=== PATIENT | female | born 1990 | race Caucasian/White ===

== ENCOUNTER 2024-10-01 19:20 | Inpatient (IN) | payer OTHER, SELFPAY ==
[2024-10-01 18:49] VITALS: BP 122/76; PULSE 99; RESP 20; TEMP 36.9; O2SAT 107; BMI 37.0
--- NOTE | 2024-10-01 19:19 | PCM.HP.STD ---
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 She had a white count of 11.4 and a temp of 103, heart rate initially 120s but improved to 90s after fluids. Was found to have UA consistent with UTI so she was given Zosyn. Lactic acid was within normal limits at [facility] facility ([facility] Of note she had recently been admitted to [facility] 3 weeks ago for a E. coli UTI and was treated with Rocephin and subsequently cefdinir, she has been off of antibiotics for 2 weeks however this she developed the abdominal pain and back pain with intermittent fevers. Family preferred transfer to [place], patient accepted in transfer. Patient evaluated bedside when she arrived to the floor. She endorses she has little bit of a headache and has had this in the fevers off and on for the past couple of days, also reports she has had diarrhea since she was on antibiotics but said that this is improving and not worsening and was only offered information when specifically asked, does cath self through stoma routinely and has not changed anything or had any difficulty with this. Reports some suprapubic pain that she feels like goes to her back but not necessarily flank or side pain, otherwise just feels somewhat weak and fatigued [facility] Medical History UTI (urinary tract infection) Home Medications ?Medication ?Instructions ?Recorded ?Last Taken ?Type NK 10/01/24 Unknown History Allergy/AdvReac Type Severity Reaction Status Date / Time No Known Allergies Allergy Verified 10/01/24 20:11 Social History Smoking Status: Never smoker ROS ROS Narrative General: Has had some fevers and chills HENT: Intermittent headaches, denies stuffy nose, denies sore throat EYES: Denies changes in vision Resp: Denies cough, denies shortness of breath Cardiac: Denies chest pain GI: Poor p.o. intake, some lower abdominal pain symptoms to the back, sometimes diarrhea : Continues to self cath Extremity: Denies swelling MSK: Generalized weakness Neuro: Denies any numbness/tingling Heme: Denies any bleeding or bruising Skin: Denies rashes Psychiatric: No complaints voiced Vital Signs Vital Signs Vital Signs: 10/01/24 18:49 Temperature 98.5 F Temperature Source Oral Pulse Rate 99 Respiratory Rate 20 H Blood Pressure 122/76 H Blood Pressure Mean 91 Pulse Ox 107 Oxygen Delivery Method Room Air Physical Exam Narrative General: Alert, oriented, appears uncomfortable HEENT: Atraumatic, normocephalic Eyes: Anicteric, normal conjunctiva, extraocular movements grossly intact Neck: Supple Respiratory: Clear to auscultation bilaterally, normal respiratory effort Cardiovascular: Regular rate and rhythm GI: Soft, tender in lower to mid abdomen without any rebound, guarding, rigidity Extremities: No edema Musculoskeletal: Moving all extremities Neuro: No overt focal neurological deficits Skin: No rashes appreciated Psych: Cooperative Assessment & Plan Assessment/Plan (1) Complicated UTI (urinary tract infection): PLAN: Plan # Recurrent complicated UTI - Patient self caths through stoma, had not had problems until recently - [facility] - Will continue Zosyn given patient recent hospitalized with IV antibiotics and unclear sensitivities - IV fluids - Supportive care - Patient is to establish with urology on an outpatient basis in the next couple of weeks - Can consider an inpatient urology consult this week if necessary however if patient improves significantly with antibiotics may just be able to follow on outpatient basis - Given this is patient's second UTI in 3 weeks is reasonable to get imaging, [facility], we have no baseline it is unclear if this is an ALIDA or just slightly elevated at baseline especially given patient's reports of poor p.o. intake, will hydrate patient with IVF overnight and plan on CT scan in the a.m. #DVT ppx: SCDs Maggie Crook MD Time spent in the patient's overall evaluation, decision-making process, review of diagnostic data, adjustment of management, discussion with other providers, nursing and ancillary staff involved in patient's care documentation,57 Minutes Charges/Coding Visit Charges Inpatient E&M: 88423 Init Hosp L2
--- OUTSIDE RECORDS SUMMARY | 2024-10-01 19:32 | XMS RPT_ITS | CCD ---
Author Organization [facility] Care Team Providers Care [place] [employer] Drier Name Role Phone Annalee Romero PA-C Unavailable Annalee Romero PA-C Unavailable [phone] Yina Drake PA-C Unavailable [phone] Amber KHANNA, Dr. Gaming Unavailable Gillian Ho LPN Unavailable Unavailable ANNALEE ROMERO Consulting Unavailable JOSE ANTONIO LOPEZ MD Attending Unavailable JOSE ANTONIO LOPEZ MD Primary Care Unavailable JOSE ANTONIO LOPEZ MD Admitting Unavailable ANNALEE ROMERO Referring Unavailable PROVIDER, UNKNOWN Consulting Unavailable Problems Active Problems Problem Classification Problem Date Documented Da te Episodic/Chronic Headache; including migraine (16 sources) Chronic headache disorder; Translations: [Headache] 02-17-2019 Episodic Residual codes; unclassified (16 sources) Varicella immune; Translations: [Other specified health status] 02-17-2019 Episodic Unclassified (8 sources) Headache - The onset of the headache has been gradual and has been occurring in a persistent pattern for 7 weeks. The course has been constant. The headache is characterized as pounding (but then sometimes it can be a slight headache). The headache is experienced any time of the day (no diurnal variation) (starts shortly after waking up and lasts all day long). The headache is described as being located in the frontal area. The symptoms are aggravated by pressure over temporal arteries (when she is tired it is worse). The symptoms have been associated with neck stiffness (shoulders are always tight- alot of tension.) and sore throat (a little bit), while the symptoms have not been associated with blurring of vision, eye pain (last eye appointment was just this fall - very slight change and it did not help - had headache prior to getting the new glasses (was seen at [facility] for exam and then went online to purchase the glasses).), jaw claudication, nausea, unconsciousness, vertigo or vomiting. Note for Headache: Hasn't taken any medications for the headaches.Goes to chiropractor once a month. Sometimes has massages but none recently.No other symptoms with the headaches.No family history of headaches. Has good water intake.Works as a preschool assistant director.No cold symptoms prior to headaches starting. 02-17-2019 Urinary tract infections (2 sources) Urinary tract infectious disease; Translations: [Urinary tract infection, site not specified] 09-14-2024 Episodic Past or Other Problems Problem Classification Problem Date Documented Date Episodic/Chronic Unclassified (1 source) Follow up consultation - The patient is here to follow-up after hospitalization ([facility]) on : (09/10/2024- 09/11/2024). Current symptoms include abdominal pain, headache and Patient is feeling better in general. Note for Consultation follow-up: Patient is currently on the Omnicef for 7 days. Patient reports that her symptoms are significantly improved at this time.Patient has a history of multiple bladder surgeries, including bladder neck reconstruction. She is interested in a referral to urology. She has not seen a specialist since she was a child. 09-14-2024 Unclassified (1 source) [ADDITIONAL REASON] Transition into care - The patient is transitioning into care from a hospital and a summary of care was reviewed. 09-14-2024 NEGATED: Highlighted row has been ruled out!Unclassified (8 sources) No Known / History Onset: 02-17-2019 02-17-2019 Results Test Name Value Interpretation Reference Range Facil ity CBC + DIFFon 09-11-2024 Baso # 0.01 x10EE3/UL Normal 0.00 - 0.10 [facility] Comment on above: Performed By: #### 2 [id number] #### [address] [address] Basophils/100 WBC (Bld) 0.1 % Normal 0.0 - 2.0 [facility] Comment on above: Performed By: #### 2 80756 #### [address] [address] CBC + DIFF Normal [facility] Comment on above: Result Comment: CBC- COMPLETE BLOOD COUNT Performed By: #### 2 20755 #### [facility],[address] [place] [address] EO # 0.08 x10EE3/UL Normal 0.00 - 0.50 [facility] Comment on above: Performed By: #### 2 57705 #### [facility],[address] [place] [address] Eosinophils/100 WBC (Bld) 1.1 % Normal 0.0 - 7.0 [facility] Comment on above: Performed By: #### 2 00190 #### [facility],[address] [place] [address] Erythrocyte distribution width (RBC) [Ratio] 12.5 % Normal 12.0 - 15.6 [facility] Comment on above: Performed By: #### 2 07295 #### [facility],[address] [place] [address]00 Hematocrit (Bld) [Volume fraction] 41.3 % Normal 34.0 - 46.0 [facility] Comment on above: Performed By: #### 2 90486 #### [facility],[address] [place] [address] Hemoglobin (Bld) [Mass/Vol] 14.3 g/dL Normal 12.0 - 16.0 [facility] Comment on above: Performed By: #### 2 13334 #### [facility],[address] [place] [address] Lymph # 0.52 x10EE3/UL Low 0.80 - 2.80 [facility] Comment on above: Performed By: #### 2 19668 #### [facility],[address] [place] [address]47 Lymphocytes/100 WBC (Bld) 7.7 % Low 20.0 - 45.0 [facility] Comment on above: Performed By: #### 2 22865 #### [facility],[address] [place] [address] MANUAL DIFF N/A Normal [facility] Comment on above: Performed By: #### 2 91422 #### [facility],[address] [place] [address] MCH (RBC) [Entitic mass] 32 pg Normal 27 - 33 [facility] Comment on above: Performed By: #### 2 32307 #### [facility],[address] [place] [address] MCHC 35 X10 3 Normal 32 - 36 [facility] Comment on above: Performed By: #### 2 84045 #### [facility],[address] [place] [address] MCV (RBC) [Entitic vol] 93 fL Normal 80 - 99 [facility] Comment on above: Performed By: #### 2 62936 #### [facility],[address] [place] [address] Meeker # 0.54 x10EE3/UL Normal 0.20 - 1.00 [facility] Comment on above: Performed By: #### 2 04410 #### [facility],[address] [place] [address] MONOS % 8.0 % Normal 0.0 - 10.0 [facility] Comment on above: Performed By: #### 2 48920 #### [facility],[address] [place] [address] Morphology Aram (Bld) [Interp] N/A Normal [facility] Comment on above: Performed By: #### 2 56902 #### [facility],[address] [place] [address] Neut # 5.56 x10EE3/UL Normal 1.50 - 7.10 [facility] Comment on above: Performed By: #### 2 64679 #### [facility],[address] [place], [place] [id number] Neutrophils/100 WBC (Bld) 83.1 % High 46.0 - 76.0 [facility] Comment on above: Performed By: #### 2 55427 #### [facility],[address] [place] [address] PLATELET 152 x10EE3/UL Normal 150 - [address] [facility] Comment on above: Performed By: #### 2 43200 #### [facility],[address] [place] [address] Platelet mean volume (Bld) [Entitic vol] 8.0 fL Normal 6.6 - 10.5 [facility] Comment on above: Result Comment: AUTO MATED DIFFERENTIAL Performed By: #### 2 88150 #### [facility],[address] [place] [address] RBC 4.45 x 10EE6/UL Normal 4.10 - 5.30 [facility] Comment on above: Performed By: #### 2 44336 #### [facility],[address] [place] [address] WBC 6.7 x 10EE3/UL Normal 4.5 - 10.8 [facility] Comment on above: Performed By: #### 2 79181 #### [facility],[address] [place] [address] BMP with eGFRon 09-10-2024 AGE 34 years Normal [facility] Comment on above: Performed By: #### 2 63987 #### [facility],[address] [place] [address] Anion gap [Moles/Vol] 14 mmol/L Normal 10 - 20 [facility] Comment on above: Performed By: #### 2 41153 #### [facility],[address] [place], [place] [id number] BMP with eGFR Normal [facility] Comment on above: Result Comment: BASI C METABOLIC PANEL Performed By: #### 2 78718 #### [facility],[address] [place] [address] Calcium [Mass/Vol] 7.7 mg/dL Low 8.5 - 10.1 [facility] Comment on above: Result Comment: TEST REPEATED Performed By: #### 2 15059 #### [facility],[address] [place] [address] Chloride [Moles/Vol] 109 mmol/L High 98 - 107 [facility] Comment on above: Performed By: #### 2 79171 #### [facility],[address] [place] [address] CO2 [Moles/Vol] 23.4 mmol/L Normal 21.0 - 32.0 [facility] Comment on above: Performed By: #### 2 46054 #### [place] [address] Creatinine [Mass/Vol] 0.92 mg/dL Normal 0.55 - 1.02 [facility] Comment on above: Performed By: #### 2 76990 #### [place] [id number] GFR/1.73 sq M.predicted among non-blacks MDRD (S/P/Bld) [Vol rate/Area] mL/min/{1.73_m2} Normal 60 - 999 [facility] Comment on above: Performed By: #### 2 36573 #### [facility],[address] [place] [address] Result Comment: ACCO RDING TO THE NATIONAL KIDNEY DISEASE EDUCATION PROGRAM(NKDE), A NORMAL eGFR IS A VALUE GREATER THAN OR EQUAL TO 60 ML/MIN/1.73 SQ METERS. CHRONIC KIDNEY DISEASE: <60mL/MIN/1.73 SQ METERS KIDNEY FAILURE: <15mL/MIN/1.73 SQ METERS THIS TEST SHOULD ONLY BE USED FOR PATIENTS 18 YEARS OF AGE AND OLDER. Glucose [Mass/Vol] 115 mg/dL High 74 - 106 [facility] Comment on above: Performed By: #### 2 12309 #### [facility],[address] [place] [address] Potassium [Moles/Vol] 3.7 mmol/L Normal 3.5 - 5.1 [facility] Comment on above: Performed By: #### 2 60345 #### [facility],[address] [place] [address] Sodium [Moles/Vol] 143 mmol/L Normal 136 - 145 [facility] Comment on above: Performed By: #### 2 95935 #### [facility],[address] [place] [address] Urea nitrogen [Mass/Vol] 10 mg/dL Normal 7 - 18 [facility] Comment on above: Performed By: #### 2 80030 #### [facility],[address] [place] [address] CBC + DIFFon 09-10-2024 Baso # 0.01 x10EE3/UL Normal 0.00 - 0.10 [facility] Comment on above: Performed By: #### 2 09482 #### [facility],[address] [place] [address] Basophils/100 WBC (Bld) 0.1 % Normal 0.0 - 2.0 [facility] Comment on above: Performed By: #### 2 78331 #### [facility],[address] [place] [address] CBC + DIFF Normal [facility] Comment on above: Result Comment: CBC- COMPLETE BLOOD COUNT Performed By: #### 2 72868 #### [facility],[address] [place] [address] EO # 0.09 x10EE3/UL Normal 0.00 - 0.50 [facility] Comment on above: Performed By: #### 2 09333 #### [facility],[address] [place] [address] Eosinophils/100 WBC (Bld) 0.6 % Normal 0.0 - 7.0 [facility] Comment on above: Performed By: #### 2 63259 #### [facility],[address] [place] [address] Erythrocyte distribution width (RBC) [Ratio] 11.9 % Low 12.0 - 15.6 [facility] Comment on above: Performed By: #### 2 22053 #### [facility],[address] [place] [address] Hematocrit (Bld) [Volume fraction] 35.9 % Normal 34.0 - 46.0 [facility] Comment on above: Performed By: #### 2 86188 #### [facility],[address] [place] [address] Hemoglobin (Bld) [Mass/Vol] 12.8 g/dL Normal 12.0 - 16.0 [facility] Comment on above: Result Comment: RPT FOR DELTA CHECK Performed By: #### 2 33717 #### [facility],[address] [place] [address] Lymph # 0.72 x10EE3/UL Low 0.80 - 2.80 [facility] Comment on above: Performed By: #### 2 38449 #### [facility],[address] [place] [address] Lymphocytes/100 WBC (Bld) 4.9 % Low 20.0 - 45.0 [facility] Comment on above: Performed By: #### 2 80164 #### [facility],[address] [place], [place] [id number] MANUAL DIFF N/A Normal [facility] Comment on above: Performed By: #### 2 19341 #### [place] [id number] MCH (RBC) [Entitic mass] 33 pg Normal 27 - 33 [facility] Comment on above: Performed By: #### 2 99372 #### [place] [address] MCHC 36 X10 3 Normal 32 - 36 [facility] Comment on above: Performed By: #### 2 49663 #### [facility],[address] [place] [address] MCV (RBC) [Entitic vol] 92 fL Normal 80 - 99 [facility] Comment on above: Performed By: #### 2 26591 #### [facility],[address] [place] [address] Meeker # 1.05 x10EE3/UL High 0.20 - 1.00 [facility] Comment on above: Performed By: #### 2 49693 #### [facility],[address] [place] [address] MONOS % 7.3 % Normal 0.0 - 10.0 [facility] Comment on above: Performed By: #### 2 63549 #### [facility],[address] [place], [place] [id number] Morphology Aram (Bld) [Interp] N/A Normal [facility] Comment on above: Performed By: #### 2 90630 #### [facility],[address] [place] [address] Neut # 12.63 x10EE3/UL High 1.50 - 7.10 [facility] Comment on above: Performed By: #### 2 94671 #### [facility],[address] [place], [place] [id number] Neutrophils/100 WBC (Bld) 87.1 % High 46.0 - 76.0 [facility] Comment on above: Performed By: #### 2 91447 #### [facility],[address] [place] [address] PLATELET 135 x10EE3/UL Low 150 - [address] [facility] Comment on above: Performed By: #### 2 31554 #### [facility],[address] [place] [address] Platelet mean volume (Bld) [Entitic vol] 7.9 fL Normal 6.6 - 10.5 [facility] Comment on above: Result Comment: AUTO MATED DIFFERENTIAL Performed By: #### 2 57533 #### [facility],[address] [place] [address] RBC 3.91 x 10EE6/UL Low 4.10 - 5.30 [facility] Comment on above: Performed By: #### 2 83260 #### [facility],[address] [place] [address] WBC 14.5 x 10EE3/UL High 4.5 - 10.8 [facility] Comment on above: Performed By: #### 2 47305 #### [facility],[address] [place] [address] ED MED ADMINISTRATION DETAIL on 09-10-2024 ED MED ADMINISTRATION DETAIL Ela Teacher Medication Administration Record [address] [place] [address] [id number] 09/09/2024 Patient: JDAYN JONES Sex: Female : 1990 Age: 34y MEASUREMENTS: Wt: 95.3 kg, Ht/Ken: 62.0 in, BMI: 38.41 ALLERGIES: No known drug allergies Medication Ordered Medication Administration Date/Time IV NS 0.9 % 1000 18:59 09/09 IV NS 0.9 % 1000 mL started in bag#1 1000 mL at Started mL at 500 mL/hr 500 mL/hr via Site# 1. Allergies verified and confirmed 5 rights. Via 18:59 09/09/2024 (NOW x1) IV pump. IV patency established. IV site checked: no pain, redness, No Moreau R.N. or swelling. IV flushed thoroughly pre-medication administration. Stopped Information reviewed with patient and parent including reason for 20:45 09/09/2024 taking this medication. - 19:00 Maylin Bautista R.N. Scanned 20:45 09/09 Medication Discontinued: bag #1 infused. Total amount infused: 1000 mL. IV patency established. IV site checked: no pain, redness, or swelling. IV flushed thoroughly post-medication administration. - 20:55 Cathy Rubio R.N. KetorOLAC 19:09/09 KetorOLAC (Toradol) IVP 15 mg given via Site# 1. Given (Toradol) IVP 15 mg Allergies verified and confirmed 5 rights. IV patency established. IV 19:09/09/2024 (NOW x1) site checked: no pain, redness, or swelling. IV flushed thoroughly Cathy Rubio R.N. pre-medication administration. IVP given by nurse. Information Scanned reviewed with patient including reason for taking this medication, signs of allergic reaction and precautions. Verbalizes understanding. Medication Wastage: 15 mg wasted. - Cathy Rubio R.N. 1 of 3 Ela Teacher Medication Ordered Medication Administration Date/Time CefTRIAXone 19:09/09 CefTRIAXone (Rocephin) IVPB 2gm/50ml NS 2 g Started (Rocephin) IVPB started at 100 mL/hr diluted in sodium chloride IVPB 0.9 % :09/09/2024 2gm/50ml NS 2 g Minibag+ 50 mL via Site# 1. Allergies verified and confirmed 5 Cathy Rubio R.N. diluted in sodium rights. Via IV pump. IV patency established. IV site checked: no Stopped chloride IVPB 0.9 % pain, redness, or swelling. IV flushed thoroughly pre-medication 20:09/09/2024 Minibag+ 50 mL at administration. Information reviewed with patient including reason Cathy Rubio R.N. 100 mL/hr (NOW x1) for taking this medication, signs of allergic reaction and precautions. Scanned Verbalizes understanding. - Cathy Rubio R.N. 20:09/09 Medication Discontinued: IV infused. Total amount infused: 50 mL. IV patency established. IV site checked: no pain, redness, or swelling. IV flushed thoroughly post-medication administration. - 20:55 Cathy Rubio R.N. IV NS 0.9 % 1000 20:09/09 IV NS 0.9 % 1000 mL started in bag#2 1000 mL at Started mL at 500 mL/hr 500 mL/hr via Site# 1. Allergies verified and confirmed 5 rights. Via 20:56 09/09/2024 (NOW x1) dial-a-flow. IV patency established. IV site checked: no pain, Cathy Rubio R.N. redness, or swelling. IV flushed thoroughly pre-medication Stopped administration. Information reviewed with patient including reason 21:09/09/2024 for taking this medication, signs of allergic reaction and precautions. Cathy Rubio R.N. Verbalizes understanding. - 20:57 Cathy Rubio R.N. Scanned 21:09/09 Medication Discontinued: bag #2 infused. Total amount infused: 1000 mL. IV patency established. IV site checked: no pain, redness, or swelling. IV flushed thoroughly post-medication administration. - 22:03 Cathy Rubio R.N. 2 of 3 Ela Teacher Medication Ordered Medication Administration Date/Time IV NS 0.9 % 1000 22:09/09 IV NS 0.9 % 1000 mL started in bag#3 1000 mL at Started mL at 500 mL/hr 500 mL/hr via Site# 1. Allergies verified and confirmed 5 rights. Via 22:09/09/2024 (NOW x1) dial-a-flow. IV patency established. IV site checked: no pain, Cathy Rubio R.N. redness, or swelling. IV flushed thoroughly pre-medication Stopped administration. Information reviewed with patient including reason 23:47 09/09/2024 for taking this medication, signs of allergic reaction and precautions. Cathy Rubio R.N. Verbalizes understanding. - 22:03 Cathy Rbuio R.N. Scanned 23:47 09/09 Medication Discontinued: bag #3 infused. Total amount infused: 1000 mL. IV patency established. IV site checked: no pain, redness, or swelling. IV flushed thoroughly post-medication administration. - 00:02 Cathy Rubio R.N. Acetaminophen :09/09 Acetaminophen (Tylenol) PO 650 mg given. Allergies Given (Tylenol) PO 650 verified and confirmed 5 rights. Information reviewed with patient :09/09/2024 mg (NOW x1) including reason for taking this medication, signs of allergic reaction Cathy Rubio R.N. and precautions. Verbalizes understanding. - 22:29 Tawny Beebe R.NNiya 3 of 3 Normal [facility] ED NURSES CLINICAL NOTEon ED NURSES CLINICAL NOTE Nurse Narrative Nurse Clinical Narrative [address] [place] [address] [id number] 09/09/2024 16:25:00 Patient: JADYN JONES Sex: Female : 1990 Age: 34y Disposition: Admit to [facility] Disposition Decision Time: 22:43 09/09/2024 Departure Time: 23:49 09/09/2024 TRIAGE Arrived by private vehicle. Historian: (patient). Accompanied by family. Primary physician (Nick). Triage time: 16:22 09/09/2024. Acuity: LEVEL 3. Chief Complaint: ABDOMINAL PAIN and DIARRHEA. This started last night. SEPSIS SCREEN: NEGATIVE. SIRS criteria negative: heart rate greater than 90. Possible sources of infection: UTI and acute abdomen. -- 16:09/09/24 ARELIS Oreilly R.N. 16:09/09/24. BP: 144/84 MAP: 104. HR: 125. RR: 17. O2 saturation: 96% Temperature: 100.2 F. Pain level now 7/10. -- 16:09/09/24 ARELIS Oreilly R.N. Measurements: 16:09/09/24 Wt: 95.3 kg, Ht/Ken: 62.0 in, BMI: 38.41 -- 16:30 09/09/24 ARELIS Oreilly R.N. Medications: no known home medications -- 16:09/09/24 ARELIS Oreilly R.N. 16:09/09/24. Preferred Pharmacy: ([facility]). -- 16:09/09/24 ARELIS Oreilly R.N. 1 of 5 Nurse Narrative Allergies: no known drug allergies -- 16:09/09/24 ARELIS Oreilly R.N. Home Medications/Allergy Information Source: patient -- 16:09/09/24 ARELIS Oreilly R.N. Problems: Pt self-caths -- 16:09/09/24 ARELIS Oreilly R.N. Surgeries: Appendectomy -- 16:28 09/09/24 CHERIT Kimmy Oreilly R.N. bladder-ureter reconstruction. (used the appendix in the navel to create a ureter to the bladder and pt self-caths) -- 16:29 09/09/24 ARELIS Oreilly R.N. History 16:22 09/09/24. PAST MEDICAL HX: Immunizations: up-to-date. LNMP: (2-3 weeks ago). Denies current . SOCIAL HX: Never smoker. No alcohol use or drug use. The patient has not traveled outside the [place] Infectious disease exposure: No infectious disease exposure. ABUSE ASSESSMENT: The patient answered yes to the question(s) Do you feel safe in your home? and no to the question(s) Are you afraid to go home?. Abuse denied. SELF HARM ASSESSMENT: Self harm assessment was performed. The patient answered no to the question(s) Have you recently felt down, depressed, or hopeless? and Do you have thoughts of harming or killing yourself?. FALL RISK ASSESSMENT: Fall risk assessment completed. No risk factors identified. -- 16:31 09/09/24 EDT Kimmy Oreilly R.N. 2 of 5 Nurse Narrative Interventions 16:22 09/09/24. Advanced care plan discussed with patient (Full code). -- 16:09/09/24 ARELIS Oreilly R.N. PHYSICAL ASSESSMENT 21:06 09/09/24. GENERAL / NEURO / PSYCH: Alert. Oriented X 4. Appears anxious. RESPIRATORY: Respirations not labored. Breath sounds within normal limits. CVS: Cardiac rhythm: sinus tachycardia. Capillary refill less than 2 seconds. GI / : Abdomen soft. Abdominal tenderness present. Abdominal tenderness. Bowel sounds within normal limits. No obesity. No rebound tenderness, abdominal distention, scar present on the abdomen or guarding. No nausea noted. No emesis noted. SKIN: Skin is pale. Skin is cool. -- 21:16 09/09/24 EDT Cathy Rubio R.N. NURSING PROGRESS NOTES 16:37 09/09/24. 12-LEAD EKG: EKG time: (16:37 09/09/2024). 12-Lead EKG was ordered and performed by me. -- 16:50 09/09/24 EDT Kimmy Oreilly R.N. 17:48 09/09/24. Site #1 started in the right antecubital space with an 18g angiocath with aseptic technique and good blood return; 1 attempt. Blood drawn: rainbow set and nina tube(s) and cultures x 1. Saline lock flushed with 5 mL saline. -- 17:57 09/09/24 EDT Kimmy Oreilly R.N. 18:52 09/09/24. Patient ID band checked for patient name, birthdate and medical record number: patient confirmed. Catheterized urine collected with return of yellow-colored cloudy urine; odor is normal; sample sent to lab for urinalysis. Specimen labeled in the presence of the patient. -- 18:52 09/09/24 EDT Arvin Barron E.M.T.-P. 18:59 09/09/24. IV NS 0.9 % 1000 mL started in bag#1 1000 mL at 500 mL/hr via Site# 1. Allergies verified and confirmed 5 rights. Via IV pump. IV patency established. IV site checked: no pain, redness, or swelling. IV flushed thoroughly pre-medication administration. Information reviewed with patient and parent including reason for taking this medication. -- 19:00 09/09/24 EDT No Moreau R.N. 19:54 09/09/24. KetorOLAC (Toradol) IVP 15 mg given via Site# 1. Allergies verified and confirmed 5 rights. IV patency established. IV site checked: no pain, redness, or swelling. IV flushed thoroughly pre-medication administration. IVP given by nurse. Information reviewed with patient including reason for taking this medication, signs of allergic reaction and precautions. (more content not included)... Normal [facility] ED ORDER SHEET ([facility] ONLY)on 09-10-2024 ED ORDER SHEET ([facility] ONLY) Order Sheet Order Sheet [address] [place] [address] [id number] 09/09/2024 Patient: JADYN JONES Sex: Female : 1990 Age: 34y MEASUREMENTS: Wt: 95.3 kg, Ht/Ken: 62.0 in, BMI: 38.41 ALLERGIES: No known drug allergies MEDICATION/IV/DRIP/FL UID ORDERS Order Description Priority Entered Acknowledged Completed IV NS 0.9 %1000 mL at 500 17:46 09/09/2024 18:21 19:00 mL/hr (NOW x1) Yassine Salas, 09/09/2024 09/09/2024 Shaniqua Moreau, No Moreau R.N. R.N. KetorOLAC (Toradol) IVP15 mg 19:40 09/09/2024 19:48 19:54 (NOW x1) Yassine Salas, 09/09/2024 09/09/2024 Maylin Barragan R.N. CefTRIAXone (Rocephin) IVPB 19:43 09/09/2024 19:48 19:59 2gm/50ml NS2 g diluted in Yassine Salas, 09/09/2024 09/09/2024 sodium chloride IVPB 0.9 % Fede BarraganN. Cathy Rubio R.N. Minibag+ 50 mL at 100 mL/hr (NOW x1) Reason for ordering with alerts: Benefits outweigh risks --19:43 09/09/2024 Yassine Salas D.O. IV NS 0.9 %1000 mL at 500 20:24 09/09/2024 20:32 20:57 mL/hr (NOW x1) Yassine Salas, 09/09/2024 09/09/2024 Maylin Barragan R.N. 1 of 4 Order Sheet Reason for ordering with alerts: Benefits outweigh risks --20:24 09/09/2024 Yassine Salas D.O. IV NS 0.9 %1000 mL at 500 21:44 09/09/2024 21:57 22:03 mL/hr (NOW x1) Yassine Salas, 09/09/2024 09/09/2024 Maylin Barragan R.N. Reason for ordering with alerts: Benefits outweigh risks --21:44 09/09/2024 Yassine Salas D.O. Acetaminophen (Tylenol) 22:23 09/09/2024 22:25 22:29 PO650 mg (NOW x1) Roxanna Mahmood D.O. 09/09/2024 09/09/2024 Maylin Beebe R.N. LAB ORDERS Order Description Priority Entered Acknowledged Collected Completed EKG - ED Stat Stat 16:51 09/09/2024 16:51 09/09/2024 16:51 09/09/2024 Kimmy Nick Shauna Ewing, R.N. R.NNiya RBreann Verbal Order, Auth by: Yassine Salas D.O. Read back and verified CBC w Diff Stat Stat 17:46 09/09/2024 18:20 09/09/2024 18:23 09/09/2024 No Craig Natalie Yoder, D.O. R.N. R.N. CMP Stat Stat 17:46 09/09/2024 18:20 09/09/2024 18:23 09/09/2024 No Craig Natalie Yoder, D.O. R.N. R.N. Lipase Stat Stat 17:46 09/09/2024 18:20 09/09/2024 18:23 09/09/2024 No Craig Natalie Yoder, 2 of 4 Order Sheet Shaniqua Ramsay.N. R.N. Urinalysis Stat Stat 17:46 09/09/2024 18:20 09/09/2024 18:23 09/09/2024 No Craig Natalie Yoder, D.O. R.N. R.N. Urine - HCG Stat 17:46 09/09/2024 18:21 09/09/2024 18:23 09/09/2024 Stat No Craig Natalie Yoder, D.O. R.N. R.N. Blood Culture Stat 19:43 09/09/2024 19:48 09/09/2024 19:49 09/09/2024 [Isaias] # 1 Stat Cathy Craig R.N. Alivia King, R.N. D.ONiya Blood Culture Stat 19:43 09/09/2024 19:48 09/09/2024 20:01 09/09/2024 [Isaias] # 2 Stat Cathy Craig R.N. Alivia King, R.N. D.O. Lactate, Serum Stat Stat 19:43 09/09/2024 19:48 09/09/2024 20:01 09/09/2024 Cathy Craig R.N. Alivia King, R.N. D.O. Urine Culture [CCL] Stat Stat 19:43 09/09/2024 19:48 09/09/2024 19:49 09/09/2024 Cathy Craig R.N. Alivia King, R.N. D.ONiya DIAGNOSTIC STUDY ORDERS Order Description Priority Entered Acknowledged Completed CT ABD/PEL w Cont Stat Stat 20:24 09/09/2024 20:31 20:54 Yassine Salas 09/09/2024 09/09/2024 Bisi.OMaylin Natarajan RNiyaNNiya 3 of 4 Order Sheet Reason for Study: Abdominal Pain STAFF ORDERS Order Description Priority Entered Acknowledged Collected Completed IV Saline Lock 17:46 09/09/2024 18:21 09/09/2024 18:23 09/09/2024 No Craig, Shaniqua Bautista R.N.N. [Electronically signed by Roxanna Mahmood D.O. (09/09/2024 22:24 EDT)] [Electronically signed by Roxanna Mahmood D.O. (09/09/2024 22:24 EDT)] [Electronically signed by Roxanna Mahmood D.O. (09/09/2024 22:24 EDT)] [Electronically signed by Roxanna Mahmood D.O. (09/10/2024 00:35 EDT)] [Electronically signed by Yassine Salas D.O. (09/10/2024 08:14 EDT)] 4 of 4 [facility] ED PHYSICIAN CLINICAL REPORT on 09-10-2024 ED PHYSICIAN CLINICAL REPORT Narrative Physician Clinical Narrative [place] [id number] [facility] [place] [address] [id number] 09/09/2024 16:25:00 Patient: JADYN JONES Sex: Female : 1990 Age: 34y Disposition: Admit to [facility] Disposition Decision Time: 22:43 09/09/2024 Departure Time: 23:49 09/09/2024 Measurements Wt: 95.3 kg, Ht/Ken: 62.0 in, BMI: 38.41 Initial Vital Sign Measured Time BP MAP HR RR O2Sat ETCO2 Temp Pain GCS RTS 16:26 09/09/2024 144/84 104 125 17 96% 100.2 F 7 Time Seen: 17:33 09/09/2024. Arrived- By private vehicle. Historian- patient. Independent historian- family. HISTORY OF PRESENT ILLNESS Chief Complaint: ABDOMINAL PAIN. It is described as located in the right lower quadrant and left lower quadrant. This started yesterday patient came in with fever and tachycardic abdominal pain. She had some abdominal cramping mainly in lower abdomen started yesterday and intensified skin emergency department with her parents very caring and loving toward her. She does have to self cath because of an operation she had when she was 11 because of a bladder overflow issue. REVIEW OF SYSTEMS MUSCULOSKELETAL: No joint pain. CVS: No chest pain. CONSTITUTIONAL: The patient has had fever and chills. : The patient has had difficulty with urination. No pain with urination. GI: No constipation. 1 of 22 Narrative PAST HISTORY See nurses notes. Pt self-caths Surgeries: Appendectomy bladder-ureter reconstruction: (used the appendix in the navel to create a ureter to the bladder and pt self-caths) Medications: no known home medications Allergies: no known drug allergies Home Medications/Allergy Information Source: patient - Kimmy Oreilly R.N., 09/09/2024 16:26 EDT SOCIAL HISTORY Never smoker. No alcohol use. ADDITIONAL NOTES The nursing notes have been reviewed. PHYSICAL EXAM Appearance: Alert. Oriented X3. Eyes: Pupils equal, round and reactive to light. Eyes normal inspection. ENT: Ears normal. Nose normal. Neck: Normal inspection. Neck supple. CVS: Tachycardia. Normal heart rhythm. Heart sounds normal. Respiratory: No respiratory distress. Breath sounds normal. Abdomen: Soft. Tenderness in the right lower quadrant, suprapubic area and left lower quadrant. Back: Normal inspection. 2 Narrative Skin: Skin warm and dry. Normal skin color. Normal skin turgor. Extremities: Extremities exhibit normal ROM. No lower extremity edema. Neuro: Oriented X 3. No motor deficit. LABS, X-RAYS, AND EKG Laboratory Tests: CBC + DIFF Final KENNY: 09/09/2024 17:48:00 EDT MsgRcvd: 09/09/2024 18:07 EDT Lab Test Result Reference Status Received Comments 09/09/2024 18:07 CBC-COMPLETE CBC + DIFF Final EDT BLOOD COUNT 15.3 x 10/UL 09/09/2024 18:07 WBC 4.5 - 10.8 Final Above high normal EDT 09/09/2024 18:07 RBC 4.58 x 10/UL 4.10 - 5.30 Final EDT 09/09/2024 18:07 HEMOGLOBIN 14.9 g/dl 12.0 - 16.0 Final EDT 09/09/2024 18:07 HEMATOCRIT 41.7 % 34.0 - 46.0 Final EDT 09/09/2024 18:07 MCV 91 fl 80 - 99 Final EDT 09/09/2024 18:07 MCH 33 pg 27 - 33 Final EDT 09/09/2024 18:07 MCHC 36 X10 3 32 - 36 Final EDT 09/09/2024 18:07 RDW/CV 12.2 % 12.0 - 15.6 Final EDT 3 of 22 Narrative Lab Test Result Reference Status Received Comments 09/09/2024 18:07 PLATELET 161 x10/UL 150 - 450 Final EDT 09/09/2024 18:07 AUTOMATED MPV 7.5 fl 6.6 - 10.5 Final EDT DIFFERENTIAL 90.8 % 09/09/2024 18:07 NEUT % 46.0 - 76.0 Final Above high normal EDT 3.0 % 09/09/2024 18:07 LYMPH % 20.0 - 45.0 Final Below low normal EDT 09/09/2024 18:07 MONOS % 5.4 % 0.0 - 10.0 Final EDT 09/09/2024 18:07 EO % 0.6 % 0.0 - 7.0 Final EDT 09/09/2024 18:07 BASO % 0.2 % 0.0 - 2.0 Final EDT 0.46 x10/UL 09/09/2024 18:07 Lymph # 0.80 - 2.80 Final Below low normal EDT 13.89 x10/UL 09/09/2024 18:07 Neut # 1.50 - 7.10 Final Above high normal EDT 09/09/2024 18:07 Meeker # 0.82 x10/UL 0.20 - 1.00 Final EDT 09/09/2024 18:07 EO # 0.09 x10/UL 0.00 - 0.50 Final EDT 09/09/2024 18:07 Baso # 0.02 x10/UL 0.00 - 0.10 Final EDT 09/09/2024 18:07 MANUAL DIFF N/A New Order EDT Narrative Lab Test Result Reference Status Received Comments 09/09/2024 18:07 MORPHOLOGY N/A New Order EDT CMP with eGFR Final KENNY: 09/09/2024 17:48:00 EDT MsgRcvd: 09/09/2024 18:30 EDT Lab Test Result Reference Status Received Comments COMPREHENSIVE 09/09/2024 CMP with eGFR Final METABOLIC 18:30 EDT PANEL 09/09/2024 SODIUM 140 mmol/l 136 - 145 Final 18:30 EDT 09/09/2024 POTASSIUM 3.6 mmol/L 3.5 - 5.1 Final 18:30 EDT 09/09/2024 CHLORIDE 102 mmol/L 98 - 107 Final 18:30 EDT 09/09/2024 CO2 24.9 mmol/L 21.0 - 32.0 Final 18: (more content not included)... Normal [facility] ED SUPER BILLon 09-10-2024 ED [facility] [address] [place] [address] [id number] 09/09/2024 Patient: JADYN JONES Sex: Female : 1990 Age: 34y Facility Professional Category Item Description Code Code Quantity Fee Total Drugs Normal Saline 125969 3 $0.00 $0.00 1000cc (916676) Nurse/E/M EMERGENCY 032176 1 $0.00 $0.00 DEPT VISIT HIGH SEVERITYFUNCJ (97787-55) Nurse/IV/IM/Infusions Drip/IVPB initial 758969 1 $0.00 $0.00 (85457) Nurse/IV/IM/Infusions Hydration 475738 3 $0.00 $0.00 additional hour (38489) Nurse/IV/IM/Infusions IVP additional 228190 1 $0.00 $0.00 push (81060) Grand $0.00 Total Providers Shaniqua Craig D.O. 1 of 2 Superbil Chief Complaint ABDOMINAL PAIN. Principal Diagnosis Sepsis. No shock, altered mental status, disseminated intravascular coagulation or acute organ dysfunction. Acute pyelonephritis. ICD-10 Codes N10: Acute pyelonephritis A41.9: Sepsis, unspecified organism 2 of 2 Normal [facility] ED VISIT SUMMARYon ED VISIT SUMMARY Visit Overview Visit Overview [address] [place] [address] [id number] 09/09/2024 Patient: JADYN JONES Sex: Female : 1990 Age: 34y 09/10/2024 08:14 AM EDT ED Arrival:16:23 09/09/2024 EDT Status:not Recent Travel:no Language:deu Adv Directive: Isolation Status: Ethnicity:N Fall Risk:no risk Infectious Disease Exposure:no Measurements:5'2 / 157.5 Self-Harm Status:risk Sepsis Screen:negative cm 210.0 lb / 95.3 kg Chief Complaint:ABDOMINAL PAIN, DIARRHEA, and (Romero) ALLERGIES No Known Drug Allergies HOME MEDICATIONS None PAST MEDICAL HISTORY / PROBLEMS Immunizations: up-to-date LNMP: (2-3 weeks ago) Pt self-caths 1 of 3 Visit Overview See nurses notes PAST SURGICAL HISTORY Appendectomy bladder-ureter reconstruction. (used the appendix in the navel to create a ureter to the bladder and pt self-caths) SOCIAL HISTORY Smoking status: No Alcohol use: No Drug use: No ED COURSE MEDICATIONS GIVEN IN EMERGENCY DEPARTMENT 18:59 09/09/24 IV NS 0.9 % 1000 mL 500 mL/hr 19:54 09/09/24 KetorOLAC (Toradol) IVP 15 mg CefTRIAXone (Rocephin) IVPB 2gm/50ml NS 2 g diluted in sodium chloride IVPB 0.9 19:59 09/09/24 % Minibag+ 50 mL 100 mL/hr 20:56 09/09/24 IV NS 0.9 % 1000 mL 500 mL/hr 22:02 09/09/24 IV NS 0.9 % 1000 mL 500 mL/hr 22:26 09/09/24 Acetaminophen (Tylenol) PO 650 mg IV SITE INFORMATION 17:48 09/09/24 Site #1 right AC, 18g. Saline lock. INTAKE OUTPUT Total Urine 1150 mL TOTAL OUTPUT 1150 mL REASSESMENT (most recent) 23:24 09/09/24. The patient reports no complaints and the patient is calm and resting quietly. Call light placed in reach. Side rails up x 2. Bed placed in lowest position. Brakes of bed on. VITAL SIGNS 2 of 3 Visit Overview First Vitals Last Vitals Temp 16:26 09/09/24 100.2 F Temp 23:48 09/09/24 100.0 F BP 16:26 09/09/24 144/84 BP 23:48 09/09/24 HR 16:26 09/09/24 125 HR 23:48 09/09/24 RR 16:26 09/09/24 17 RR 23:48 09/09/24 O2 Sat 16:26 09/09/24 96% O2 Sat 23:48 09/09/24 Pain 16:26 09/09/24 7 Pain 23:48 09/09/24 ETCO2 16:26 09/09/24 ETCO2 23:48 09/09/24 GCS 16:26 09/09/24 GCS 23:48 09/09/24 RTS 16:26 09/09/24 RTS 23:48 09/09/24 PROCEDURES NURSING INTERVENTIONS LABS / STUDIES LABS / STUDIES ORDERED Blood Culture [Isaias] # 1 Blood Culture [Isaias] # 2 CBC w Diff CMP [address] ABD/PEL w Cont EKG - ED Lactate, Serum Lipase Urinalysis Urine Culture [CCL] Urine - HCG CLINICAL IMPRESSION ACUTE PYELONEPHRITIS SEPSIS. NO SHOCK, ALTERED MENTAL STATUS, DISSEMINATED INTRAVASCULAR COAGULATION OR ACUTE ORGAN DYSFUNCTION 3 of 3 Normal [facility] ED VITALS FLOW SHEETon 09-10 ED VITALS FLOW SHEET Vitals Vital Sign Flow Sheet [facility] [address] [place] [address] [id number] 09/09/2024 Patient: JADYN JONES Sex: Female : 1990 Age: 34y Measurements Wt: 95.3 kg, Ht/Ken: 62.0 in, BMI: 38.41 Measured Time BP MAP HR RR O2Sat ETCO2 Temp Pain GCS RTS 23:48 09/09/2024 100.0 F 23:43 09/09/2024 112 94% 23:38 09/09/2024 113 94% 23:38 09/09/2024 112/70 82 110 23:33 09/09/2024 112 93% 23:28 09/09/2024 117 93% 23:23 09/09/2024 118 93% 23:23 09/09/2024 111/65 81 118 23:18 09/09/2024 120 93% 23:13 09/09/2024 118 93% 23:08 09/09/2024 120 93% 23:08 09/09/2024 116/71 82 118 23:03 09/09/2024 122 93% 22:58 09/09/2024 120 93% 22:53 09/09/2024 124 94% 1 of 4 Vitals Measured Time BP MAP HR RR O2Sat ETCO2 Temp Pain GCS RTS 22:53 09/09/2024 118/70 82 122 22:48 09/09/2024 125 93% 22:43 09/09/2024 124 93% 22:38 09/09/2024 126 94% 22:38 09/09/2024 119/71 83 124 22:33 09/09/2024 127 95% 22:28 09/09/2024 130 94% 22:23 09/09/2024 125 94% 22:23 09/09/2024 118/73 84 123 22:18 09/09/2024 126 94% 22:13 09/09/2024 128 95% 22:08 09/09/2024 126 97% 22:08 09/09/2024 121/76 89 125 22:03 09/09/2024 130 95% 21:58 09/09/2024 132 95% 21:57 09/09/2024 118/75 88 133 21:43 09/09/2024 141 96% 21:38 09/09/2024 128 96% 21:38 09/09/2024 126/76 89 127 21:33 09/09/2024 124 96% 21:28 09/09/2024 119 97% 21:23 09/09/2024 112 98% 21:23 09/09/2024 121/82 92 111 21:18 09/09/2024 116 98% 21:13 09/09/2024 129 99% 2 of 4 Vitals Measured Time BP MAP HR RR O2Sat ETCO2 Temp Pain GCS RTS 21:08 09/09/2024 131/93 99 115 21:08 09/09/2024 134 99% 21:07 09/09/2024 100.1 F 21:03 09/09/2024 131 99% 20:58 09/09/2024 112 98% 20:57 09/09/2024 119/78 88 109 20:23 09/09/2024 121/77 86 115 20:08 09/09/2024 129/78 95 114 19:53 09/09/2024 120/100 104 113 19:38 09/09/2024 122/86 90 104 19:23 09/09/2024 123/80 91 102 18:38 09/09/2024 111 96% 18:38 09/09/2024 129/83 97 112 18:33 09/09/2024 106 95% 18:28 09/09/2024 104 94% 18:23 09/09/2024 107 95% 18:23 09/09/2024 125/87 96 107 18:18 09/09/2024 107 95% 18:13 09/09/2024 104 94% 18:08 09/09/2024 104 94% 18:08 09/09/2024 131/87 98 106 18:03 09/09/2024 108 96% 17:58 09/09/2024 105 95% 17:53 09/09/2024 110 95% 17:53 09/09/2024 141/92 98 109 3 of 4 Vitals Measured Time BP MAP HR RR O2Sat ETCO2 Temp Pain GCS RTS 16:26 09/09/2024 144/84 104 125 17 96% 100.2 F 7 4 of 4 Normal [facility] CBC + DIFFon 09-09-2024 Baso # 0.02 x10EE3/UL Normal 0.00 - 0.10 [facility] Comment on above: Performed By: #### 2 [id number] #### [facility],[address] [place] [address] Basophils/100 WBC (Bld) 0.2 % Normal 0.0 - 2.0 [facility] Comment on above: Performed By: #### 2 11996 #### [facility],[address] [place] [address] CBC + DIFF Normal [facility] Comment on above: Result Comment: CBC- COMPLETE BLOOD COUNT Performed By: #### 2 10349 #### [facility],[address] [place] [address] EO # 0.09 x10EE3/UL Normal 0.00 - 0.50 [facility] Comment on above: Performed By: #### 2 89990 #### [facility],[address] [place] [address] Eosinophils/100 WBC (Bld) 0.6 % Normal 0.0 - 7.0 [facility] Comment on above: Performed By: #### 2 73050 #### [facility],[address] [place] [address] Erythrocyte distribution width (RBC) [Ratio] 12.2 % Normal 12.0 - 15.6 [facility] Comment on above: Performed By: #### 2 84851 #### [facility],[address],[place] [address] Hematocrit (Bld) [Volume fraction] 41.7 % Normal 34.0 - 46.0 [facility] Comment on above: Performed By: #### 2 92613 #### [facility],[address] [place] [address]509 Hemoglobin (Bld) [Mass/Vol] 14.9 g/dL Normal 12.0 - 16.0 [facility] Comment on above: Performed By: #### 2 62154 #### [facility],[address] [place], [place] [id number] Lymph # 0.46 x10EE3/UL Low 0.80 - 2.80 [facility] Comment on above: Performed By: #### 2 26231 #### [facility],[address] [place], [place] [id number] Lymphocytes/100 WBC (Bld) 3.0 % Low 20.0 - 45.0 [facility] Comment on above: Performed By: #### 2 99021 #### [facility],[address] [place], [place] [id number] MANUAL DIFF N/A Normal [facility] Comment on above: Performed By: #### 2 10416 #### [facility],[address] [place] [address] 26504 MCH (RBC) [Entitic mass] 33 pg Normal 27 - 33 [facility] Comment on above: Performed By: #### 2 31773 #### [facility],[address] [place], [place] [id number] MCHC 36 X10 3 Normal 32 - 36 [facility] Comment on above: Performed By: #### 2 44729 #### [facility],[address] [place] [address] 17828 MCV (RBC) [Entitic vol] 91 fL Normal 80 - 99 [facility] Comment on above: Performed By: #### 2 66192 #### [facility],[address],[place] [address] Meeker # 0.82 x10EE3/UL Normal 0.20 - 1.00 [facility] Comment on above: Performed By: #### 2 83070 #### [facility],[address] [place] [address] 34420 MONOS % 5.4 % Normal 0.0 - 10.0 [facility] Comment on above: Performed By: #### 2 91377 #### [facility],[address] [place] [address] Morphology Aram (Bld) [Interp] N/A Normal [facility] Comment on above: Performed By: #### 2 13195 #### [place] [address] Neut # 13.89 x10EE3/UL High 1.50 - 7.10 [facility] Comment on above: Performed By: #### 2 13428 #### [place] [address] Neutrophils/100 WBC (Bld) 90.8 % High 46.0 - 76.0 [facility] Comment on above: Performed By: #### 2 31941 #### [place] [address] PLATELET 161 x10EE3/UL Normal 150 - [address] [facility] Comment on above: Performed By: #### 2 08432 #### [place] [address] Platelet mean volume (Bld) [Entitic vol] 7.5 fL Normal 6.6 - 10.5 [facility] Comment on above: Result Comment: AUTO MATED DIFFERENTIAL Performed By: #### 2 24742 #### [place] [address] RBC 4.58 x 10EE6/UL Normal 4.10 - 5.30 [facility] Comment on above: Performed By: #### 2 71128 #### [facility],[address] [place] [address] 63915 WBC 15.3 x 10EE3/UL High 4.5 - 10.8 [facility] Comment on above: Performed By: #### 2 10678 #### [facility],[address] [place] [address] 78902 CMP with eGFRon 09-09-2024 AGE 34 years Normal [facility] Comment on above: Performed By: #### 2 77324 #### [facility],[address] [place] [address] 37370 Albumin [Mass/Vol] 3.9 g/dL Normal 3.4 - 5.0 [facility] Comment on above: Performed By: #### 2 70471 #### [facility],[address] [place] [address] 33616 Albumin/Globulin [Mass ratio] 1.0 {ratio} Normal 0.9 - 1.6 [facility] Comment on above: Performed By: #### 2 78215 #### [facility],[address] [place] [address] 00690 ALK PHOS 56 U/L Normal 46 - 116 [facility] Comment on above: Performed By: #### 2 49022 #### [facility],[address] [place] [address] 96555 ALT [Catalytic activity/Vol] 63 U/L Normal 16 - 63 [facility] Comment on above: Performed By: #### 2 32955 #### [facility],[address] [place] [address] 74965 Anion gap [Moles/Vol] 17 mmol/L Normal 10 - 20 [facility] Comment on above: Performed By: #### 2 04289 #### [facility],[address] [place] [address] 42203 AST [Catalytic activity/Vol] 33 U/L Normal 13 - 39 [facility] Comment on above: Performed By: #### 2 61969 #### [facility],[address] [place] [address] 19269 B/C RATIO 13 ratio Normal 0 - 30 [facility] Comment on above: Performed By: #### 2 43452 #### [facility],[address] [place] [address] 44936 Bilirubin [Mass/Vol] 1.1 mg/dL High 0.2 - 1.0 [facility] Comment on above: Performed By: #### 2 50142 #### [facility],[address] [place] [address] 61486 Calcium [Mass/Vol] 9.1 mg/dL Normal 8.5 - 10.1 [facility] Comment on above: Performed By: #### 2 42842 #### [facility],[address] [place] [address] 66926 Chloride [Moles/Vol] 102 mmol/L Normal 98 - 107 [facility] Comment on above: Performed By: #### 2 92675 #### [facility],[address] [place] [address] 11777 CMP with eGFR Normal [facility] Comment on above: Result Comment: COMP REHENSIVE METABOLIC PANEL Performed By: #### 2 71224 #### [facility],[address] [place] [address] 79639 CO2 [Moles/Vol] 24.9 mmol/L Normal 21.0 - 32.0 [facility] Comment on above: Performed By: #### 2 02530 #### [facility],[address] [place] [address] 04978 Creatinine [Mass/Vol] 1.02 mg/dL Normal 0.55 - 1.02 [facility] Comment on above: Performed By: #### 2 47274 #### [facility],[address] [place] [address] 20300 GFR/1.73 sq M.predicted among non-blacks MDRD (S/P/Bld) [Vol rate/Area] mL/min/{1.73_m2} Normal 60 - 999 [facility] Comment on above: Performed By: #### 2 80421 #### [facility],[address] [place] [address] 20830 Result Comment: ACCO RDING TO THE NATIONAL KIDNEY DISEASE EDUCATION PROGRAM(NKDE), A NORMAL eGFR IS A VALUE GREATER THAN OR EQUAL TO 60 ML/MIN/1.73 SQ METERS. CHRONIC KIDNEY DISEASE: <60mL/MIN/1.73 SQ METERS KIDNEY FAILURE: <15mL/MIN/1.73 SQ METERS THIS TEST SHOULD ONLY BE USED FOR PATIENTS 18 YEARS OF AGE AND OLDER. Globulin (S) [Mass/Vol] 3.9 g/dL High 1.5 - 3.8 [facility] Comment on above: Performed By: #### 2 38705 #### [facility],[address] [place] [address] 38727 Glucose [Mass/Vol] 102 mg/dL Normal 74 - 106 [facility] Comment on above: Performed By: #### 2 54926 #### [facility],[address] [place] [address] 58339 Potassium [Moles/Vol] 3.6 mmol/L Normal 3.5 - 5.1 [facility] Comment on above: Performed By: #### 2 66804 #### [facility],[address] [place] [address] 29075 Protein [Mass/Vol] 7.8 g/dL Normal 6.4 - 8.2 [facility] Comment on above: Performed By: #### 2 51360 #### [facility],[address] [place] [address] 03904 Sodium [Moles/Vol] 140 mmol/L Normal 136 - 145 [facility] Comment on above: Performed By: #### 2 82551 #### [facility],[address] [place] [address] 69593 Urea nitrogen [Mass/Vol] 13 mg/dL Normal 7 - 18 [facility] Comment on above: Performed By: #### 2 05741 #### [facility],[address] [place], [place] [id number] CULTURE BLOOD [ISAIAS]on Microscopic examination of blood, culture CULTURE BLOOD [ISAIAS] _[facility] C[facility] FOR SCANNED REPORT 09/13/[email or web address] PLETE Normal [facility] Comment on above: Performed By: #### 2 80497 #### [facility],[address] [place] [address] Microscopic examination of blood, culture CULTURE BLOOD [ISAIAS] _BLOOD CULTURE_ [facility] AND [facility]ACH[facility] FOR SCANNED REPORT 09/18/[email or web address] PLETE Normal [facility] Comment on above: Performed By: #### 2 31495 #### [facility],[address] [place] [address] LACTATEon 09-09-2024 Lactate [Moles/Vol] 0.9 mmol/L Normal 0.4 - 2.0 [facility] Comment on above: Result Comment: KENNY ECTED AT 1756, NO ORDER TILL 1947 Performed By: #### 2 74110 #### [facility],[address] [place], [place] [id number] LIPASEon 09-09-2024 Lipase [Catalytic activity/Vol] 37.0 U/L Normal 15.0 - 78.0 [facility] Comment on above: Result Comment: *PLE ASE NOTE THAT RANGES FOR LIPASE HAVE CHANGED OF 02/12/23 DUE TO AN ASSAY UPDATE BY THE RESOURCE MANAGEMENT PLANNER.THE NEW ASSAY RANGE IS 6-250 U/L, WITH A REFERENCE RANGE OF 16-77 U/L. Performed By: #### [id number] #### [facility],[address] [place], [place] [id number] URINEon 09-09-2024 Beta HCG ( test) Ql (U) Negative Normal NEGATIVE [facility] Comment on above: Performed By: #### 2 [id number] #### [facility],[address] [place] [address] EXTERNAL QC DONE? YES Normal [facility] Comment on above: Result Comment: Very dilute urine specimens, as indicated by a low specific gravity, may not contain telesales representative levels of hCG. If is still suspected, a first morning urine specimen should be collected 48 hours later and tested. Performed By: #### 2 [id number] #### [facility],[address] [place] [address] INTERNAL QC PASS Normal [facility] Comment on above: Performed By: #### 2 [id number] #### [facility],[address] [place] [address] URINALYSISon 09-09-2024 Amorphous NONE Normal [facility] Comment on above: Performed By: #### 2 [id number] #### [facility],[address] [place] [address] Bacteria 1+ Normal [facility] Comment on above: Performed By: #### 2 [id number] #### [facility],[address] [place] [address] Bilirubin Ql (U) Negative Normal NORMAL: NEGATIVE [facility] Comment on above: Performed By: #### 2 05113 #### [facility],[address] [place] [address] Casts NONE Normal [facility] Comment on above: Performed By: #### 2 07107 #### [facility],[address] [place] [address] Clarity (U) sl.cloudy Normal NORMAL: CLEAR [facility] Comment on above: Performed By: #### 2 53517 #### [facility],[address] [place] [address] Color (U) yellow Normal NORMAL: YELLOW [facility] Comment on above: Performed By: #### 2 [id number] #### [facility],[address],[place] [address] Crystals LM Nom (Urine sed) NONE Normal [facility] Comment on above: Performed By: #### 2 [id number] #### [facility],[address] [place] [address]50 Epi Cells NONE Normal [facility] Comment on above: Performed By: #### 2 92276 #### [facility],[address] [place] [address] 80167 Glucose Ql (U) NORM Normal NORMAL: NORMAL [facility] Comment on above: Performed By: #### 2 50790 #### [facility],[address] [place] [address] 65361 Hemoglobin Ql (U) 50 Abnormal NORMAL: NEGATIVE [facility] Comment on above: Performed By: #### 2 59810 #### [facility],[address] [place] [address] 56162 Ketone 50 Abnormal NORMAL: NEGATIVE [facility] Comment on above: Performed By: #### 2 [id number] #### [facility],[address] [place] [address] 53460 Leukocytes 500 Abnormal NORMAL: NEGATIVE [facility] Comment on above: Performed By: #### 2 96686 #### [facility],[address] [place] [address] 44162 Mucous NONE Normal [facility] Comment on above: Performed By: #### 2 41153 #### [facility],[address] [place] [address] 97007 Nitrite Ql (U) Negative Normal NORMAL: NEGATIVE [facility] Comment on above: Performed By: #### 2 69385 #### [facility],[address] [place] [address] 81934 pH (U) 6 [pH] Normal NORMAL: 5.0-8.0 [facility] Comment on above: Performed By: #### 2 31588 #### [facility],[address] [place] [address] 55883 Protein Ql (U) 30 Abnormal NORMAL: NEGATIVE [facility] Comment on above: Performed By: #### 2 85495 #### [facility],[address] [place] [address] Rbc 0-5 Normal 0-3/hpf [facility] Comment on above: Performed By: #### 2 39660 #### [facility],[address] [place] [address] Sp [place] 1.010 Normal NORMAL: 1.010-1.030 [facility] Comment on above: Performed By: #### 2 49493 #### [facility],[address] [place] [address] Specimen Type R Normal [facility] Comment on above: Performed By: #### 2 60637 #### [facility],[address] [place] [address] Urinalysis dipstick W Reflex Microscopic panel (U) SEE BELOW Normal [facility] Comment on above: Result Comment: MICR OSCOPIC Performed By: #### 2 17095 #### [facility],[address] [place] [address] Urobilinog NORM Normal NORMAL: NORMAL [facility] Comment on above: Performed By: #### 2 53581 #### [facility],[address] [place] [address] WBC (U) [#/Vol] /uL Normal 0-5/hpf [facility] Comment on above: Performed By: #### 2 23012 #### [facility],[address] [place] [address] Yeast NONE Normal [facility] Comment on above: Performed By: #### 2 80898 #### [facility],[address] [place], [place] [id number] URINE CULTURE [CCL]on 2024 Bacteria identified Cx Nom (U) URCUL See Results Below See Below CULTURE, URINE ESCHERICHIA COLI >=100,000 CFU/ml Escherichia coli ORGANISM: ESCHERICHIA COLI ANTIBIOTIC VENUS DILUTN VENUS INTERP Ampicillin >=32 Resistant Cefazolin <=4 Susceptible For uncomplicated urinary tract infections, cefazolin results can be used to pre Ceftriaxone <=1 Susceptible Cefepime <=1 Susceptible Ertapenem <=0.5 Susceptible Meropenem <=0.25 Susceptible Ampicillin/Sulbact 16 Intermediate Piperacillin/Tazobac <=4 Susceptible Gentamicin <=1 Susceptible Tobramycin <=1 Susceptible Trimeth sulfameth <=20 Susceptible Ciprofloxacin <=0.25 Susceptible Nitrofurantoin 32 Susceptible This test was developed and its performance characteristics determined by the [facility] [place] ([facility]). It has not been cleared or approved by the FDA. -[facility] is regulated under CLIA as qualified to perform high-complexity testing. This test is used for clinical purposes. It should not be regarded as investigational or for research. SOURCE: Urine, Kurtz Catheter [facility] [address] [place] [address] Greg Mcarthur III, M.D. [id number] Normal [facility] Comment on above: Performed By: #### 2 [id number] #### [facility],[address] [place] [address] No Panel Informationon 02-17 VARICELLA ZOSTER VIRUS ANTIBODY (IGG) <135.00 Abnormal [facility], [facility] Vital Signs Date Time Vital Sign Value Performing Clinician Facility 09-14-2024 09:22-0400 Body height 158.75 cm Gillian Ho LPN [facility], [facility].; [facility], [facility]. 09-14-2024 09:22-0400 Body mass index (BMI) [Ratio] 36.72 kg/m2 Gillian Ho LPN [facility], [facility].; [facility], [facility]. 09-14-2024 09:22-0400 Body surface area Derived from formula 1.94 m2 Gillian Ho LPN [facility], [facility].; [facility], [facility]. 09-14-2024 09:22-0400 Body temperature 97.7 [degF] Gillian Ho LPN [facility], [facility].; [employer]. Comment on above: Method: Tympanic 09-14-2024 09:22-0400 Body weight 92.53 kg Gillian Vic PAULINO [place] [employer] [facility] [employer] [facility].; [place] [employer] [facility]. 09-14-2024 09:22-0400 Diastolic blood pressure 86 mm[Hg] Gillian Ho LPN [place] [employer] [facility].; [employer]. Comment on above: Patient Position: Si tting; Cuff Location: Left Arm; Cuff Size: Standard 09-14-2024 09:22-0400 Heart rate 91 /min Gillian Ho LPN [place] [employer]. Comment on above: Pattern: Regular 09-14-2024 09:22-0400 Systolic blood pressure 126 mm[Hg] Gillian Ho LPN [employer] Comment on above: Patient Position: Si tting; Cuff Location: Left Arm; Cuff Size: Standard 02-17-2019 10:20-0500 Body height 158.75 cm Annalee Romero PA-C Work Phone: [employer] 02-17-2019 10:20-0500 Body mass index (BMI) [Ratio] 32.94 kg/m2 Annalee Romero PA-C Work Phone: [employer] 02-17-2019 10:20-0500 Body surface area Derived from formula 1.85 m2 Annalee Romero PA-C Work Phone: [employer] 02-17-2019 10:20-0500 Body temperature 97.4 [degF] Annalee Romero PA-C Work Phone: [employer].; [employer] Comment on above: Method: Tympanic 02-17-2019 10:20-0500 Body weight 83.01 kg Annalee Romero PA-C Work Phone: [employer]. 02-17-2019 10:20-0500 Diastolic blood pressure 81 mm[Hg] Annalee Romero PA-C Work Phone: [employer]; [employer] Comment on above: Patient Position: Si tting; Cuff Location: Left Arm; Cuff Size: Standard 02-17-2019 10:20-0500 Heart rate 73 /min Annalee Romero PA-C Work Phone: [employer]; [employer] Comment on above: Pattern: Regular 02-17-2019 10:20-0500 Systolic blood pressure 119 mm[Hg] Annalee Romero PA-C Work Phone: [employer]; [employer] Comment on above: Patient Position: Si tting; Cuff Location: Left Arm; Cuff Size: Standard Encounters Encounter Date Encounter Type Care Provider Facility Start: 09-14-2024 End: 09-14-2024 Historical Summary Yina Drake PA-C Work Phone: [employer] Start: 09-14-2024 End: 09-14-2024 Office outpatient new 30 minutes Yina Drake PA-C Work Phone: [employer] Start: 09-09-2024 End: 09-11-2024 Evaluation and management of inpatient ANNALEE Almanza ROMERO [facility] Start: 02-17-2019 End: 02-17-2019 Patient encounter procedure Annalee Romero PA-C Work Phone: [employer] Procedures Date Procedure Procedure Detail Performing Clinician Start: 09-09-2024 Urinalysis ANNALEECHARIS SCHAEFFER Comment on above: Result Comment: URIN ALYSIS Performed By: #### 2 [id number] #### [facility],[address] [place] [address] Start: 02-15-2001 End: 02-15-2001 Appendectomy Gillian Ho LPN Comment on above: Removed so they coul d use the tissue to reconstruct her bladder bladderneck reconstruction M fabian Nick PA-C Work Phone: Comment on above: 1997, 1999, 2001[facility] bladderneck reconstruction M willy Ho LORA Comment on above: 1997, 1999, 2001-[facility] H/O: surgery History of bladd er repair surgery Yina Drake PA-C Work Phone: H/O: surgery History of bladd er repair surgery Yina Drake PA-C Work Phone: Plan of Treatment Date Care Activity Detail Author Start: 09-14-2024 Patient encounter procedure [employer] Payers Date Payer Category Payer Unknown [id number] Unknown [id number] Social History Date Type Detail Facility Caffeine Use Caffeine Use [employer]; [employer] Tobacco Use: Tobacco Use: ; Never smoker. [employer]; [employer] Female [employer]; [employer] Work Phone: Never smoked tobacco [employer]; [employer] Work Phone: Family History No Family History Records Found Breast Cancer Status:Active Comments:grandmo ther maternal Colon Cancer Status:Active Comments:Paterna sandee Grandmother. Breast Cancer Status:Active Comments:grandmo ther maternal Colon Cancer Status:Active Comments:Paterna l Grandmother. Breast Cancer Status:Active Comments:grandmo ther maternal Colon Cancer Status:Active Comments:Paterna l Grandmother. Breast Cancer Status:Active Comments:grandmo ther maternal Colon Cancer Status:Active Comments:Paterna l Grandmother. Breast Cancer Status:Active Comments:grandmo ther maternal Colon Cancer Status:Active Comments:Paterna l Grandmother. Breast Cancer Status:Active Comments:grandmo ther maternal Colon Cancer Status:Active Comments:Paterna l Grandmother. Breast Cancer Status:Active Comments:grandmo ther maternal Colon Cancer Status:Active Comments:Paterna l Grandmother. Breast Cancer Status:Active Comments:grandmo ther maternal Colon Cancer Status:Active Comments:Paterna l Grandmother. Summary Purpose Advance Directives No Advanced Directives Records Found Additional Source Comments INFORMATION SOURCE (unrecogn ized section and content) DATE CREATED AUTHOR 09/20/2024 [facility] FOR RECORDS PERTAINING TO PATIENTS WHO ARE OR HAVE BEEN ENROLLED IN A CHEMICAL DEPENDENCY/SUBSTANCEABUSE PROGRAM, SOME INFORMATION MAY BE OMITTED. This clinical summary was aggregated from multiple sources. Caution should be exercised in using it in the provision of clinical care. This summary normalizes information from multiple sources, and as a consequence, information in this document may materially change the coding, format and clinical context of patient data. In addition, data may be omitted in some cases. CLINICAL DECISIONS SHOULD BE BASED ON THE PRIMARY CLINICAL RECORDS. [employer] [facility]. provides no warranty or guarantee of the accuracy or completeness of information in this document.
[2024-10-01 20:09] VITALS: BP 126/80; PULSE 112; RESP 18; TEMP 38.8; O2SAT 98
[2024-10-01] MEDS: 0.9% Normal Saline (1000mL) 1,000 ML 75 ML IV (20:15)
[2024-10-01 22:02] VITALS: BP 106/62; PULSE 102; RESP 18; TEMP 37.7; O2SAT 97
[2024-10-01] MEDS: Piperacil/Tazobactam 3.375 GM in 0.9% Normal Saline (50mL MB+) 50 ML IV (22:04)
[2024-10-02] VITALS (9 sets, daily range): BP systolic 101–119; BP diastolic 60–74; PULSE 97–109; RESP 18; TEMP 36.6–38.5; O2SAT 97–98
[2024-10-02] MEDS: Piperacil/Tazobactam 3.375 GM in 0.9% Normal Saline (50mL MB+) 50 ML IV ×3 (05:50→22:14)
[2024-10-02 05:51] LABS: Hematocrit 33.2 % (37-47); Hemoglobin 11.7 g/dL (12.0-15.0); Immature Granulocytes Count 0.070 X10^3/uL (0.0-0.0); Mean Corp Hgb Conc 35.2 g/dL (32-36); Mean Corpuscular Volume 90.0 fL (81-99); Mean Platelet Vol. 11.1 fl (6.2-12.0); NRBC Flagged by Analyzer 0 % (0-5); POSITIVE DIFFERENTIAL YES; Platelet Count 128 K/mm3 (150-450); RBC Distribution Width CV 11.6 % (11.6-14.6); RBC Distribution Width SD 38.1 fl (35.1-43.9); Red Blood Count 3.69 M/mm3 (4.2-5.4); White Blood Count 10.8 K/mm3 (4.4-11.0)
[2024-10-02 05:52] LABS: Differential Indicated SCAN CRITERIA MET
--- NOTE | 2024-10-02 05:55 | CT_ITS ---
PROCEDURE: CT ABD/PELVIS W/WO CONTRAST 10/02/2024 REASON FOR EXAM: RECURRENT COMPLICATED UTI TECHNIQUE: CT ABD/PELVIS W/WO CONTRAST Coronal and Sagittal reconstruction series were provided. CONTRAST: Isovue-350 VOLUME: 100 mL One or more dose reduction techniques were used (e.g., Automated exposure control, adjustment of the mA and/or kV according to patient size, use of iterative reconstruction technique. RADIATION DOSE SUMMARY: CTDlvol: 23.68 mGy DLP: 2164 mGycm COMPARISON: None. FINDINGS: Diffuse thickening of the bladder suggestive of cystitis. Moderate right hydroureteronephrosis, probably reflux. Mild left hydroureteronephrosis, probably reflux. Bilateral heterogeneous nephrogram of the kidneys, probably acute pyelonephritis. No obstructing stone or drainable abscess formation. Severe chronic atrophy of the left kidney. Mild bilateral basilar atelectatic pulmonary changes. Well-defined 5 mm simple cyst is noted in the segment 4B of the liver. No follow-up is needed. Mild amount of reactive free pelvic fluid. Absent appendix. Normal remaining liver. Normal gallbladder and extrahepatic biliary system. Normal spleen. Normal pancreas. Normal bilateral adrenal glands. Normal size of the right kidney. There is no right renal mass. There are no right renal calculi. There is no left renal mass. There are no left renal calculi. Normal visualized stomach. Normal small intestine. Normal colon. Normal abdominal aorta. Normal inferior vena cava. Normal retroperitoneum. There is no pelvic mass lesion or lymphadenopathy. Normal abdominal wall. Normal osseous structures. CT/CT Abd/Pelvis W/WO Contrast IMPRESSION: Diffuse thickening of the bladder suggestive of cystitis. Moderate right hydroureteronephrosis, probably reflux. Mild left hydroureteronephrosis, probably reflux. Bilateral heterogeneous nephrogram of the kidneys, probably acute pyelonephriti s. No obstructing stone or drainable abscess formation. Severe chronic atrophy of the left kidney. Mild bilateral basilar atelectatic pulmonary changes. Well-defined 5 mm simple cyst is noted in the segment 4B of the liver. No foll ow-up is needed. Mild amount of reactive free pelvic fluid. Reading Location[facility] [place] [address]
[2024-10-02 05:59] LABS: Anion Gap 11 (5-15); BUN 8 mg/dL (4-19); BUN/Creat Ratio 7.5 RATIO (10-20); Calcium,Total 7.9 mg/dL (7.6-11.0); Carbon Dioxide 18.7 mmol/L (21.0-32.0); Chloride 104 mmol/L (98-108); Estimated Creatinine Clearance 80.90 ml/min (50-250); Glucose 140 mg/dL (70-99); Potassium 3.4 mmol/L (3.3-5.1)
[2024-10-02 06:33] LABS: Differential Comment SCANNED
[2024-10-02 06:34] LABS: Red Cell Morphology NORM C+C NORMAL (NORM C&C)
--- NOTE | 2024-10-02 10:08 | PCM.PN.HOSP ---
Reason for Visit Chief Complaint: Weakness, fever, concern for UTI Objective Data Objective Data Vital Signs: Vital Signs Temp Pulse Resp BP Pulse Ox O2 Del Method 98 F 97 18 101/69 98 Room Air 10/02/24 08:26 10/02/24 08:26 10/02/24 08:26 10/02/24 08:26 10/02/24 08:26 10/02/24 08:30 Oxygen Delivery Method Room Air Weight: 201 lb 8.04 oz Body Mass Index (BMI) 37.0 Intake & Output: Intake and Output for Last 24 Hours 09/30/24 10/01/24 10/02/24 23:59 23:59 23:59 Intake Total 1100 / 1100 Output Total 350 / 350 200 / 200 Balance -350 / -350 900 / 900 Lab / Micro Data 10/02/24 05:08 10/02/24 05:08 Labs: Laboratory Results - last 24 hr 10/02/24 05:08: WBC 10.8, RBC 3.69 L, Hgb 11.7 L, Hct 33.2 L, MCV 90.0, MCH 31.7, MCHC 35.2, RDW Std Deviation 38.1, RDW Coeff of Janelle 11.6, Plt Count 128 L, MPV 11.1, Immature Gran % (Auto) 0.600, Neut % (Auto) 76.6 H, Lymph % (Auto) 5.9 L, [place] % (Auto) 16.6 H, Eos % (Auto) 0.0, Baso % (Auto) 0.3, Absolute Neuts (auto) 8.3 H, Absolute Lymphs (auto) 0.64 L, Nucleated RBC % 0, Differential Comment SCANNED, Platelet Estimate SLT DEC, RBC Morphology NORM C+C, Sodium 134, Potassium 3.4, Chloride 104, Carbon Dioxide 18.7 L, Anion Gap 11, BUN 8, Creatinine 1.05, Estim Creat Clear Calc 80.90, Est GFR (MDRD) Non-Af 72, BUN/Creatinine Ratio 7.5 L, Glucose 140 H, Calcium 7.9 Radiography Diagnostic Testing: Radiology Impression Abdomen/Pelvis CT 10/02/24 05:55 IMPRESSION: Diffuse thickening of the bladder suggestive of cystitis. Moderate right hydroureteronephrosis, probably reflux. Mild left hydroureteronephrosis, probably reflux. Bilateral heterogeneous nephrogram of the kidneys, probably acute pyelonephritis. No obstructing stone or drainable abscess formation. Severe chronic atrophy of the left kidney. Mild bilateral basilar atelectatic pulmonary changes. Well-defined 5 mm simple cyst is noted in the segment 4B of the liver. No follow-up is needed. Mild amount of reactive free pelvic fluid. Reading Location: [place] [address] Physical Exam Narrative Seen and examined. Discussed with the patient's mother in the room. She said patient had bladder reconstruction surgery at the age of 11 when she was found to have bilateral reflux probably vesicoureteral reflux with bilateral hydroureteronephrosis. She had surgery in [facility]. As per her history, currently she is not following any urologist but she has appointment with urologist in October. Admitted with fever, mild headache nausea but no vomiting. Physical exam General: Alert, Oriented x3, Cooperative. BMI 36.9 KUB squamous HEENT: Atraumatic, PERRLA, EOMI, Normocephalic. Oral: No Gingival or Mucosal Lesions/ Ulcerations Neck: Supple, No JVD, Negative Carotid Bruits Chest wall/Lungs: Air entry diminished in bilateral lung bases. No crepitation/rhonchi Cardiovascular: Regular rate and rhythm, Normal S1,S2, No M/G/R Abdomen: Bowel Sounds Present, Soft, Non Tender, mild abdominal distention : Neobladder reconstruction with membrane,metanephroma through with she empties bladder. No renal angle tenderness. Extremities: No edema, Capillary Refill Less than 3 Seconds Skin: No rashes, No breakdown Musculoskeletal: No Tenderness to Palpation of Joints or Extremities Neurological: Cranial nerves II-XII grossly intact, DTR 2+/4. No acute focal neurological deficit. 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 # Recurrent complicated UTI with acute pyelonephritis with secondary moderate right hydroureteronephrosis, mild left hydroureteronephrosis - Patient self caths through stoma, had not had problems until recently: Mild leukocytosis 11.4 K, temperature 93 Fahrenheit, heart rate 120s but improved to 90s with IV fluid. UA consistent with UTI. She was recently admitted to [facility] [place] 3 weeks ago for E. coli UTI and was treated with Rocephin and subsequently cefdinir. She has been off antibiotics for 2 weeks. - Urine culture obtained at outlying facility and is pending -continue Zosyn given patient recent hospitalized with IV antibiotics and unclear sensitivities. Discussed with urologist Dr. Clark and she thinks it is a complicated patient. Try to get medical records from [facility] regarding surgical details of bladder reconstruction. CT scan findings discussed with the patient and her mother near the bedside and the urologist Continue IV fluid Most likely acute kidney injury due to bilateral hydroureteronephrosis/UTI: Patient creatinine was 1.32 on outside facility. With IV fluid creatinine came down to 1.05. #DVT ppx: SCDs Laboratory Results 10/02/24 05:08: WBC 10.8, RBC 3.69 L, Hgb 11.7 L, Hct 33.2 L, MCV 90.0, MCH 31.7, MCHC 35.2, RDW Std Deviation 38.1, RDW Coeff of Janelle 11.6, Plt Count 128 L, MPV 11.1, Immature Gran % (Auto) 0.600, Neut % (Auto) 76.6 H, Lymph % (Auto) 5.9 L, [place] % (Auto) 16.6 H, Eos % (Auto) 0.0, Baso % (Auto) 0.3, Absolute Neuts (auto) 8.3 H, Absolute Lymphs (auto) 0.64 L, Nucleated RBC % 0, Differential Comment SCANNED, Platelet Estimate SLT DEC, RBC Morphology NORM C+C, Sodium 134, Potassium 3.4, Chloride 104, Carbon Dioxide 18.7 L, Anion Gap 11, BUN 8, Creatinine 1.05, Estim Creat Clear Calc 80.90, Est GFR (MDRD) Non-Af 72, BUN/Creatinine Ratio 7.5 L, Glucose 140 H, Calcium 7.9 Clinical Impression(s) from Imaging Studies Abdomen/Pelvis CT 10/02/24 05:55 IMPRESSION: Diffuse thickening of the bladder suggestive of cystitis. Moderate right hydroureteronephrosis, probably reflux. Mild left hydroureteronephrosis, probably reflux. Bilateral heterogeneous nephrogram of the kidneys, probably acute pyelonephritis. No obstructing stone or drainable abscess formation. Severe chronic atrophy of the left kidney. Mild bilateral basilar atelectatic pulmonary changes. Well-defined 5 mm simple cyst is noted in the segment 4B of the liver. No follow-up is needed. Mild amount of reactive free pelvic fluid. Laboratory Results 10/02/24 05:08: WBC 10.8, RBC 3.69 L, Hgb 11.7 L, Hct 33.2 L, MCV 90.0, MCH 31.7, MCHC 35.2, RDW Std Deviation 38.1, RDW Coeff of Janelle 11.6, Plt Count 128 L, MPV 11.1, Immature Gran % (Auto) 0.600, Neut % (Auto) 76.6 H, Lymph % (Auto) 5.9 L, [place] % (Auto) 16.6 H, Eos % (Auto) 0.0, Baso % (Auto) 0.3, Absolute Neuts (auto) 8.3 H, Absolute Lymphs (auto) 0.64 L, Nucleated RBC % 0, Differential Comment SCANNED, Platelet Estimate SLT DEC, RBC Morphology NORM C+C, Sodium 134, Potassium 3.4, Chloride 104, Carbon Dioxide 18.7 L, Anion Gap 11, BUN 8, Creatinine 1.05, Estim Creat Clear Calc 80.90, Est GFR (MDRD) Non-Af 72, BUN/Creatinine Ratio 7.5 L, Glucose 140 H, Calcium 7.9 Charges/Coding Visit Charges Inpatient E&M: 62111 Subs Hosp L2
--- NOTE | 2024-10-02 10:30 | CASEMGMT ---
Dx:complicated UTI LACE:1 6-Clicks: 24 Medical record reviewed and patient evaluated for identification of discharge planning needs. Based on this review, at this time criteria are not present to indicate a need for discharge planning. Will remain available to assist with discharge planning needs as identified or requested. No ID c/s. Noted pt self caths since history of bladder and ureter reconstruction in childhood.
--- NOTE | 2024-10-02 12:59 | CON.PCM.ID_ITS ---
Assessment & Plan Assessment/Plan (1) Complicated UTI (urinary tract infection): PLAN: Complicated urologic history. CT shows staghorn calculi. Will consult urology. Reviewed [facility] records, I do not see a ucx pending in their system yet. Will order one from here and request [facility] records. Will follow, thank you HPI Consult Data Date of Consult: 10/02/24 HPI Narrative Reason for Consultation: uti HPI Narrative: JADYN JONES, is a 34 F who presented with 2-3 days lower back pain, lower abd pain, weakness, fever, headache, not feeling well. Sees urologist at [facility], has suprapubic stoma. Recent admit to [facility] a month ago, sent home with po abx for uti. Now presented to [facility], transferred here, on zosyn. Feeling a little better. Full ROS performed and neg except as noted above. [facility] Medical History UTI (urinary tract infection) Home Medications ?Medication ?Instructions ?Recorded ?Last Taken ?Type NK 10/01/24 Unknown History Allergy/AdvReac Type Severity Reaction Status Date / Time No Known Allergies Allergy Verified 10/01/24 20:11 Social History Smoking Status: Never smoker Physical Exam Const alert, oriented x3 and no apparent distress General Appearance: cooperative HEENT normocephalic and head/scalp atraumatic Eyes PERRL and EOMs intact bilaterally Neck supple and No nodes Resp normal air movement and clear to auscultation bilaterally Cardio regular rate and regular rhythm GI soft to palpation, non-tender and non-distended GI Narrative: mild bilat flank soreness Extremity General Extremity: Negative for edema Skin no rashes or lesions noted Neuro CN's II-XII intact bilaterally Lab / Micro Data Attestation: I reviewed the patient's lab results. 10/02/24 05:08 10/02/24 05:08 Labs: Laboratory Results - last 24 hr 10/02/24 05:08: WBC 10.8, RBC 3.69 L, Hgb 11.7 L, Hct 33.2 L, MCV 90.0, MCH 31.7, MCHC 35.2, RDW Std Deviation 38.1, RDW Coeff of Janelle 11.6, Plt Count 128 L, MPV 11.1, Immature Gran % (Auto) 0.600, Neut % (Auto) 76.6 H, Lymph % (Auto) 5.9 L, [place] % (Auto) 16.6 H, Eos % (Auto) 0.0, Baso % (Auto) 0.3, Absolute Neuts (auto) 8.3 H, Absolute Lymphs (auto) 0.64 L, Nucleated RBC % 0, Differential Comment SCANNED, Platelet Estimate SLT DEC, RBC Morphology NORM C+C, Sodium 134, Potassium 3.4, Chloride 104, Carbon Dioxide 18.7 L, Anion Gap 11, BUN 8, Creatinine 1.05, Estim Creat Clear Calc 80.90, Est GFR (MDRD) Non-Af 72, B UN/Creatinine Ratio 7.5 L, Glucose 140 H, Calcium 7.9 Imaging Radiology Impression Abdomen/Pelvis CT 10/02/24 05:55 IMPRESSION: Diffuse thickening of the bladder suggestive of cystitis. Moderate right hydroureteronephrosis, probably reflux. Mild left hydroureteronephrosis, probably reflux. Bilateral heterogeneous nephrogram of the kidneys, probably acute pyelonephritis. No obstructing stone or drainable abscess formation. Severe chronic atrophy of the left kidney. Mild bilateral basilar atelectatic pulmonary changes. Well-defined 5 mm simple cyst is noted in the segment 4B of the liver. No follow-up is needed. Mild amount of reactive free pelvic fluid. Reading Location: [place] [address]
--- NOTE | 2024-10-02 16:25 | CON.PCM_ITS ---
Assessment & Plan Assessment/Plan (1) Complicated UTI (urinary tract infection): (2) Neurogenic bladder: (3) Urinary retention: (4) Overflow incontinence: (5) Hydroureter, right: (6) Pyelonephritis: (7) Left renal atrophy: PLAN: Plan Await urine culture, Continue antibiotics Recommend frequent cathing via Mitrofanoff every 2 hours. Obtain records from [facility] Given this new finding of urethral congenital malformation, would recommend further evaluation with possible surgical interventions in [place]. Plan to refer for follow-up as outpatient as long as her pyelonephritis improves with antibiotic administration. HPI Consult Data Date of Consult: 10/03/24 HPI Narrative Reason for Consultation: Urinary tract infection HPI Narrative: JADYN JONES, is a 34 F who was admitted from an outside institution with a diagnosis of urinary tract infection. She is with her mom at bedside. The patient apparently underwent several urologic procedures as a young child. 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 She does not recall a history of neurogenic bladder. There is no history of her having spina bifida or sacral agenesis. They are not certain what diagnosis or what etiology led them to starting intermittent catheterization. They recall that they were offered a procedure through the urology office at [facility] and were told to call when they were ready to schedule. At that time they decided to continue without further management with a physician. She has been cathing herself approximately 4 times a day through her Mitrofanoff. She leaks from her urethra and wears at least 5 pull-ups daily. She has not had any imaging in over 10 years. She has not had a urinary tract infection that she can recall in over 10 years. The pharmacy has been supplying her catheters. She is not sexually active. She has never had a . Patient nor mom recall any overactive bladder medications to help manage bladder pressure previously. They seemed surprised to hear that her left kidney has essentially atrophied to likely nonfunctioning. We discussed that pressure in the bladder is a very important measurement that we used to determine if her kidneys are at risk for decrease in function. She has not not had regular cystoscopic evaluation to ensure no development of bladder cancer. We had a discussion that she needs to make sure she maintains accurate follow-up annually at minimum with an annual renal ultrasound and cystoscopy. Today she reports she is not having any pain aside from some abdominal discomfort and distention. She reports that she does need to cath as she has not done that in a few hours, cathed for 600cc. We discussed placement of urethral azul. At the mention of this, mom recalls that there is an issue with her urethra, and that there is more than one, and that there is always trouble with placing a catheter. The pediatric urologist was always able to do it, but he was the only one. ON LICENSE OF [facility] Medical History (Updated 10/02/24 @ 17:[address] Amberly Clark MD) Pyelonephritis Hydroureter, right Overflow incontinence Urinary retention Neurogenic bladder UTI (urinary tract infection) Medical History unable to obtain unable to obtain (Patient and mom are unaware of her history) Home Medications ?Medication ?Instructions ?Recorded ?Last Taken ?Type NK 10/01/24 Unknown History Allergy/AdvReac Type Severity Reaction Status Date / Time No Known Allergies Allergy Verified 10/01/24 20:11 Social History Smoking Status: Never smoker ROS Constitutional Constitutional: Reports fatigue and fever(s) Eyes Eyes: Reports systems reviewed and no addt'l complaints, except as documented ENT HEENT: Reports systems reviewed and no addt'l complaints, except as documented Cardiovascular Cardiovascular: Reports systems reviewed and no addt'l complaints, except as documented; Denies chest pain, nausea or vomiting Respiratory/Chest Respiratory/Chest: Denies dyspnea or inability to speak Gastrointestinal Gastrointestinal: Reports abdominal pain; Denies constipation or diarrhea Genitourinary Genitourinary: Reports difficulty urinating, dribbling and urinary incontinence; Denies dysuria, flank pain, hematuria or low back pain Musculoskeletal Musculoskeletal: Reports systems reviewed and no addt'l complaints, except as documented Integumentary Integumentary: Reports systems reviewed and no addt'l complaints, except as documented Neurologic Neurologic: Reports systems reviewed and no addt'l complaints, except as documented Psychiatric Psychiatric: Reports systems reviewed and no addt'l complaints, except as documented Endocrine Endocrinology: Reports systems reviewed and no addt'l complaints, except as documented Hematologic/Lymphatic Hematologic/Lymphatic: Reports systems reviewed and no addt'l complaints, except as documented Allergic/Immunologic Allergic/Immunologic: Reports systems reviewed and no addt'l complaints, except as documented Physical Exam Narrative An attempt was made at placement of a 16 Congolese urethral Azul catheter. On visualization of the urethra, there are 2 openings stacked vertically. Neither opening allowed access to the urinary bladder. After several gentle attempts, the process was aborted. Const alert, oriented x3 and no apparent distress General Appearance: cooperative and comfortable HEENT normocephalic, head/scalp atraumatic, hearing grossly normal bilaterally and moist oral mucous membranes Eyes General Eye: normal appearance of both eyes Neck supple General: normal visual inspection and trachea midline Chest inspection of chest normal Chest: symmetrical chest wall rise Resp normal respiratory effort, normal air movement, no retractions and no use of accessory muscles Cardio regular rate GI soft to palpation Inspection: abdominal distention Narrative: Mitrofanoff stoma appears healthy Back/Spine no CVA tenderness Skin no rashes or lesions noted, no wounds, no jaundice, no petechiae and no mottling Neuro oriented x3, CN's II-XII intact bilaterally and moves all extremities Psych mental status grossly normal and thought process normal Lab / Micro Data Attestation: I reviewed the patient's lab results. 10/03/24 06:38 10/03/24 06:38 Labs: Laboratory Results - last 24 hr 10/02/24 05:08: WBC 10.8, RBC 3.69 L, Hgb 11.7 L, Hct 33.2 L, MCV 90.0, MCH 31.7, MCHC 35.2, RDW Std Deviation 38.1, RDW Coeff of Janelle 11.6, Plt Count 128 L, MPV 11.1, Immature Gran % (Auto) 0.600, Neut % (Auto) 76.6 H, Lymph % (Auto) 5.9 L, [place] % (Auto) 16.6 H, Eos % (Auto) 0.0, Baso % (Auto) 0.3, Absolute Neuts (auto) 8.3 H, Absolute Lymphs (auto) 0.64 L, Nucleated RBC % 0, Differential Comment SCANNED, Platelet Estimate SLT DEC, RBC Morphology NORM C+C, Sodium 134, Potassium 3.4, Chloride 104, Carbon Dioxide 18.7 L, Anion Gap 11, BUN 8, Creatinine 1.05, Estim Creat Clear Calc 80.90, Est GFR (MDRD) Non-Af 72, B UN/Creatinine Ratio 7.5 L, Glucose 140 H, Calcium 7.9 Imaging Radiology Impression Imaging reviewed. Abdomen/Pelvis CT 10/02/24 05:55 IMPRESSION: Diffuse thickening of the bladder suggestive of cystitis. Moderate right hydroureteronephrosis, probably reflux. Mild left hydroureteronephrosis, probably reflux. Bilateral heterogeneous nephrogram of the kidneys, probably acute pyelonephritis. No obstructing stone or drainable abscess formation. Severe chronic atrophy of the left kidney. Mild bilateral basilar atelectatic pulmonary changes. Well-defined 5 mm simple cyst is noted in the segment 4B of the liver. No follow-up is needed. Mild amount of reactive free pelvic fluid. Reading [facility]
[2024-10-02] MEDS: Lactated Ringers 1,000 ML 75 ML IV (17:46)
[2024-10-03] VITALS (7 sets, daily range): BP systolic 112–122; BP diastolic 71–79; PULSE 87–90; RESP 16–18; TEMP 36.7–37.7; O2SAT 96–98
[2024-10-03] MEDS: Piperacil/Tazobactam 3.375 GM in 0.9% Normal Saline (50mL MB+) 50 ML IV (06:32)
[2024-10-03] MEDS: Lactated Ringers 1,000 ML 75 ML IV (06:32)
[2024-10-03 07:04] LABS: Hematocrit 33.3 % (37-47); Hemoglobin 11.6 g/dL (12.0-15.0); Immature Granulocytes Count 0.040 X10^3/uL (0.0-0.0); Mean Corp Hgb Conc 34.8 g/dL (32-36); Mean Corpuscular Volume 90.0 fL (81-99); Mean Platelet Vol. 10.8 fl (6.2-12.0); NRBC Flagged by Analyzer 0 % (0-5); Platelet Count 133 K/mm3 (150-450); RBC Distribution Width CV 11.9 % (11.6-14.6); RBC Distribution Width SD 38.6 fl (35.1-43.9); Red Blood Count 3.70 M/mm3 (4.2-5.4); White Blood Count 9.6 K/mm3 (4.4-11.0)
[2024-10-03 07:34] LABS: Anion Gap 10 (5-15); BUN 8 mg/dL (4-19); BUN/Creat Ratio 8.0 RATIO (10-20); Calcium,Total 8.6 mg/dL (7.6-11.0); Carbon Dioxide 20.3 mmol/L (21.0-32.0); Chloride 108 mmol/L (98-108); Estimated Creatinine Clearance 89.41 ml/min (50-250); Glucose 96 mg/dL (70-99); Potassium 4.0 mmol/L (3.3-5.1)
--- NOTE | 2024-10-03 08:38 | PN.HOSP_ITS ---
Reason for Visit Chief Complaint: Weakness, fever, concern for UTI Subjective Subjective 34-year-old female with 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11 presented with weakness lower abdominal and back pain and intermittent fever Objective Data Objective Data Vital Signs: Vital Signs Temp Pulse Resp BP Pulse Ox O2 Del Method 98.3 F 89 18 118/76 97 Room Air 10/03/24 08:15 10/03/24 08:15 10/03/24 08:15 10/03/24 08:15 10/03/24 08:15 10/03/24 08:18 Oxygen Delivery Method Room Air Weight: 91.4 kg Body Mass Index (BMI) 37.0 Intake & Output: Intake and Output for Last 24 Hours 10/01/24 10/02/24 10/03/24 23:59 23:59 23:59 Intake Total 1700 / 1700 1307.5 / 1307.5 Output Total 350 / 350 1550 / 1550 600 / 600 Balance -350 / -350 150 / 150 707.5 / 707.5 Lab / Micro Data 10/03/24 06:38 10/03/24 06:38 Labs: Laboratory Results - last 24 hr 10/03/24 06:38: WBC 9.6, RBC 3.70 L, Hgb 11.6 L, Hct 33.3 L, MCV 90.0, MCH 31.4, MCHC 34.8, RDW Std Deviation 38.6, RDW Coeff of Janelle 11.9, Plt Count 133 L, MPV 10.8, Immature Gran % (Auto) 0.400, Neut % (Auto) 72.4 H, Lymph % (Auto) 13.4 L, [place] % (Auto) 13.3 H, Eos % (Auto) 0.3, Baso % (Auto) 0.2, Absolute Neuts (auto) 7.0, Absolute Lymphs (auto) 1.29, Nucleated RBC % 0, Sodium 138, Potassium 4.0, Chloride 108, Carbon Dioxide 20.3 L, Anion Gap 10, BUN 8, Creatinine 0.95, Estim Creat Clear Calc 89.41, Est GFR (MDRD) Non-Af 82, BUN/Creatinine Ratio 8.0 L, Glucose 96, Calcium 8.6 Physical Exam Narrative GENERAL: cooperative HEENT: Atraumatic; normocephalic EYES; Anicteric, Normal Conjunctiva NECK; supple, normal thyroid, RESPIRATORY: Diminished to auscultation CARDIOVASCULAR: Regular S1 S2, GI: soft, normoactive bowel sounds, : Neobladder reconstruction with membrane,metanephroma through with she empties bladder. EXTREMITIES: No edema, no clubbing, MUSCULOSKELETAL: no muscle wasting NEURO: Awake; no lateralizing signs. 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 Recurrent complicated UTI secondary to self-catheterization with acute pyelonephritis ? Imaging studies on admission demonstrated Diffuse thickening of the bladder suggestive of cystitis. Moderate right hydroureteronephrosis, probably reflux. Mild left hydroureteronephrosis, probably reflux. Bilateral heterogeneous nephrogram of the kidneys, probably acute pyelonephritis. No obstructing stone or drainable abscess formation. Severe chronic atrophy of the left kidney. Patient was admitted to regular nursing floor started on Zosyn cultures sent result pending. Case was discussed with Dr. Clark with urology on admission 2. Class II obesity with BMI of 37 ? Weight loss advised 3. Anemia ? Secondary to chronic disorder monitoring H&H and transfuse if patient becomes symptomatic or hemoglobin falls below 7 4. Mild thrombocytopenia ? Will monitor with daily CBC with differential 5. DVT prophylaxis ? Bilateral SCDs Time spent in the patient's overall evaluation,decision-making process, review of diagnostic data, adjustment of management, discussion with other providers, nursing nursing and ancillary staff involved in patient's care documentation, 38 Minutes Charges/Coding Visit Charges Inpatient E&M: 57540 Subs Hosp L2
--- NOTE | 2024-10-03 10:20 | PCM.PN.ID ---
Physical Exam Narrative Feeling better, abd pain/flank pain improved, no fever. Const alert and no apparent distress General Appearance: cooperative Resp normal air movement and clear to auscultation bilaterally Cardio regular rate and regular rhythm GI soft to palpation, non-tender and non-distended Skin no rashes or lesions noted ID ID: Route of nutrition/ use of supplements: [] Nutritional Intake: [] IV Site: [] Kurtz Catheter: [] Assessment & Plan Assessment/Plan (1) Complicated UTI (urinary tract infection): PLAN: Complicated urologic history. CT shows staghorn calculi. Seen by urology. Ecoli uti at [place] end of August (R to amp, I to unasyn). Ucx here neg, but had been on abx prior to it being collected. Will narrow to ceftriaxone. Will follow
[2024-10-03] MEDS: Ceftriaxone 2 GM in 0.9% Normal Saline (50mL MB+) 50 ML IV (11:04)
--- NOTE | 2024-10-03 16:15 | PN.URO_ITS ---
Subjective Subjective The patient is feeling better today. She is having less abdominal pain but reports feeling bloated. She has had 2 bowel movements since yesterday. She is walking around the room, but not in hallways. Less fever. Overall better. No issues cathing. She is aware the plan is to follow up with [facility] for further evaluation and management. Objective Data Objective Data Vital Signs: Vital Signs Temp Pulse Resp BP Pulse Ox O2 Del Method 98.1 F 88 16 122/76 H 96 Room Air 10/03/24 14:43 10/03/24 14:43 10/03/24 14:43 10/03/24 14:43 10/03/24 14:43 10/03/24 14:43 Oxygen Delivery Method Room Air Weight: 201 lb 8.04 oz Body Mass Index (BMI) 37.0 Intake & Output: Intake and Output for Last 24 Hours 10/01/24 10/02/24 10/03/24 23:59 23:59 23:59 Intake Total 1700 / 1700 1407.5 / 1407.5 Output Total 350 / 350 1550 / 1550 1800 / 1800 Balance -350 / -350 150 / 150 -392.5 / -392.5 Lab / Micro Data 10/03/24 06:38 10/03/24 06:38 Labs: Laboratory Results - last 24 hr 10/03/24 06:38: WBC 9.6, RBC 3.70 L, Hgb 11.6 L, Hct 33.3 L, MCV 90.0, MCH 31.4, MCHC 34.8, RDW Std Deviation 38.6, RDW Coeff of Janelle 11.9, Plt Count 133 L, MPV 10.8, Immature Gran % (Auto) 0.400, Neut % (Auto) 72.4 H, Lymph % (Auto) 13.4 L, [place] % (Auto) 13.3 H, Eos % (Auto) 0.3, Baso % (Auto) 0.2, Absolute Neuts (auto) 7.0, Absolute Lymphs (auto) 1.29, Nucleated RBC % 0, Sodium 138, Potassium 4.0, Chloride 108, Carbon Dioxide 20.3 L, Anion Gap 10, BUN 8, Creatinine 0.95, Estim Creat Clear Calc 89.41, Est GFR (MDRD) Non-Af 82, BUN/Creatinine Ratio 8.0 L, Glucose 96, Calcium 8.6 Micro: Microbiology 10/02/24 12:31 Urine Catheter - Catheter Urine Culture - Preliminary Culture exhibits no growth. Physical Exam Const alert, oriented x3 and no apparent distress General Appearance: cooperative and comfortable HEENT normocephalic and head/scalp atraumatic Neck supple General: normal visual inspection Chest inspection of chest normal Resp normal respiratory effort and normal air movement Cardio regular rate GI soft to palpation Skin no rashes or lesions noted, no jaundice, no petechiae and no mottling Neuro oriented x3 and CN's II-XII intact bilaterally Psych mental status grossly normal Assessment & Plan Assessment/Plan (1) Pyelonephritis: (2) Urinary retention: (3) Neurogenic bladder: (4) Overflow incontinence: (5) Left renal atrophy: (6) Complicated UTI (urinary tract infection): PLAN: Plan cultures negative complete antibiotics per infectious disease, note, there is no staghorn calculus she will follow up with [facility]. I have spoken with nursing to help make arrangements for an appointment there. in the meantime, continue cathing frequently via Mitrofanoff. thank you!
[2024-10-03] MEDS: 0.9% Saline Lock 10 ML Syringe IV ×2 (20:36→21:22)
[2024-10-04 03:40] VITALS: BP 123/87; PULSE 78; RESP 16; TEMP 37.7; O2SAT 98
[2024-10-04 05:17] VITALS: TEMP 37.2
[2024-10-04 06:39] LABS: Hematocrit 34.6 % (37-47); Hemoglobin 12.1 g/dL (12.0-15.0); Immature Granulocytes Count 0.030 X10^3/uL (0.0-0.0); Mean Corp Hgb Conc 35.0 g/dL (32-36); Mean Corpuscular Volume 90.3 fL (81-99); Mean Platelet Vol. 10.8 fl (6.2-12.0); NRBC Flagged by Analyzer 0 % (0-5); Platelet Count 157 K/mm3 (150-450); RBC Distribution Width CV 12.1 % (11.6-14.6); RBC Distribution Width SD 40.3 fl (35.1-43.9); Red Blood Count 3.83 M/mm3 (4.2-5.4); White Blood Count 6.8 K/mm3 (4.4-11.0)
[2024-10-04 07:06] LABS: Anion Gap 12 (5-15); BUN 8 mg/dL (4-19); BUN/Creat Ratio 10.0 RATIO (10-20); Calcium,Total 8.7 mg/dL (7.6-11.0); Carbon Dioxide 20.6 mmol/L (21.0-32.0); Chloride 107 mmol/L (98-108); Estimated Creatinine Clearance 108.90 ml/min (50-250); Glucose 94 mg/dL (70-99); Potassium 3.7 mmol/L (3.3-5.1)
--- NOTE | 2024-10-04 07:42 | PCM.PN.HOSP ---
Reason for Visit Chief Complaint: Weakness, fever, concern for UTI Subjective Subjective Patient urine cultures exhibited no growth. This is not unexpected given her recent treatment at an outside hospital 2 weeks prior. Will defer discharge antibiotic therapy to ID. Patient did experience a low-grade fever of 99.9 in the early hours of the morning otherwise hide at on event for Objective Data Objective Data Vital Signs: Vital Signs Temp Pulse Resp BP Pulse Ox O2 Del Method 98.9 F 78 16 123/87 H 98 Room Air 10/04/24 05:17 10/04/24 03:40 10/04/24 03:40 10/04/24 03:40 10/04/24 03:40 10/04/24 03:40 Oxygen Delivery Method Room Air Weight: 91.4 kg Body Mass Index (BMI) 37.0 Intake & Output: Intake and Output for Last 24 Hours 10/02/24 10/03/24 10/04/24 23:59 23:59 23:59 Intake Total 1700 / 1700 3007.5 / 3007.5 350 / 350 Output Total 1550 / 1550 3100 / 3100 900 / 900 Balance 150 / 150 -92.5 / -92.5 -550 / -550 Lab / Micro Data 10/04/24 06:08 10/04/24 06:08 Labs: Laboratory Results - last 24 hr 10/04/24 06:08: WBC 6.8, RBC 3.83 L, Hgb 12.1, Hct 34.6 L, MCV 90.3, MCH 31.6, MCHC 35.0, RDW Std Deviation 40.3, RDW Coeff of Janelle 12.1, Plt Count 157, MPV 10.8, Immature Gran % (Auto) 0.400, Neut % (Auto) 73.6 H, Lymph % (Auto) 16.2 L, [place] % (Auto) 8.2, Eos % (Auto) 1.3, Baso % (Auto) 0.3, Absolute Neuts (auto) 5.0, Absolute Lymphs (auto) 1.11, Nucleated RBC % 0, Sodium 140, Potassium 3.7, Chloride 107, Carbon Dioxide 20.6 L, Anion Gap 12, BUN 8, Creatinine 0.78, Estim Creat Clear Calc 108.90, Est GFR (MDRD) Non-Af 104, BUN/Creatinine Ratio 10.0, Glucose 94, Calcium 8.7 Micro: Microbiology 10/02/24 12:31 Urine Catheter - Catheter Urine Culture - Preliminary Culture exhibits no growth. Physical Exam Narrative GENERAL: cooperative HEENT: Atraumatic; normocephalic EYES; Anicteric, Normal Conjunctiva NECK; supple, normal thyroid, RESPIRATORY: Diminished to auscultation CARDIOVASCULAR: Regular S1 S2, GI: soft, normoactive bowel sounds, : Neobladder reconstruction with membrane,metanephroma through with she empties bladder. EXTREMITIES: No edema, no clubbing, MUSCULOSKELETAL: no muscle wasting NEURO: Awake; no lateralizing signs. 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 Recurrent complicated UTI secondary to self-catheterization with acute pyelonephritis ? Imaging studies on admission demonstrated Diffuse thickening of the bladder suggestive of cystitis. Moderate right hydroureteronephrosis, probably reflux. Mild left hydroureteronephrosis, probably reflux. Bilateral heterogeneous nephrogram of the kidneys, probably acute pyelonephritis. No obstructing stone or drainable abscess formation. Severe chronic atrophy of the left kidney. Patient was admitted to regular nursing floor started on Zosyn cultures sent result pending. Case was discussed with Dr. Clark with urology on admission ? 10/04/2024;Patient urine cultures exhibited no growth. This is not unexpected given her recent treatment at an outside hospital 2 weeks prior. Will defer discharge antibiotic therapy to ID. Patient antibiotic therapy has been de-escalated from Zosyn to ceftriaxone the day prior by ID 2. Class II obesity with BMI of 37 ? Weight loss advised 3. Anemia ? Secondary to chronic disorder monitoring H&H and transfuse if patient becomes symptomatic or hemoglobin falls below 7 4. Mild thrombocytopenia ? Will monitor with daily CBC with differential 5. DVT prophylaxis ? Bilateral SCDs Time spent in the patient's overall evaluation,decision-making process, review of diagnostic data, adjustment of management, discussion with other providers, nursing nursing and ancillary staff involved in patient's care documentation, 38 Minutes Charges/Coding Visit Charges Inpatient E&M: 90080 Subs Hosp L2
[2024-10-04] MEDS: Ceftriaxone 2 GM in 0.9% Normal Saline (50mL MB+) 50 ML IV (08:28)
[2024-10-04] MEDS: 0.9% Saline Lock 10 ML Syringe IV (08:29)
[2024-10-04 08:55] VITALS: BP 113/74; PULSE 94; RESP 17; TEMP 36.9; O2SAT 96
--- NOTE | 2024-10-04 11:17 | CASEMGMT ---
Late entry for 10/03/24- Dr. Clark asks that an appt be made with Dr. Heard at [facility] [place] [place]. Requested secretary receptionist make appt and provided with phone number.
--- NOTE | 2024-10-04 11:18 | CASEMGMT ---
TC to office to confirm if appt had been made for pt. Made aware that a referral has to be made by physician. Once this is received to fax [phone], they will call pt with an appt. Message to Dr. Clark to make aware. ERIKA CM into pt room, pt sitting up on eob with visitor at bedside. Pt is aware of this referral. She is aware if she does not hear from this office within several days, she may call them. Provided phone number on dc plan. Pt denies any further homegoing needs. Pt to have transportation for home.
--- NOTE | 2024-10-04 14:07 | DS.PCM_ITS ---
Providers Date of Admission: 10/01/24 Date of Discharge: 10/04/24 Primary Care Physician: EDWIN Campoverde Consultations 10/02/24 10:58 Consult: Urology Routine Consulting Provider: Amberly Clark Reason for Consult: complicated UTI, B/L hydroureteronephrosis EMERGENT Consult: No Notified: Yes Date Notified: 10/02/24 Time Notified: 10:59 Method of Notification: Verbal 10/02/24 11:30 Consult: Infectious Disease Routine Consulting Provider: Philipp Qureshi Reason for Consult: fever despite 2 doses Zosyn, complicated UTI, B/L hydro, Rt pyelo EMERGENT Consult: No Notified: Yes Date Notified: 10/02/24 Time Notified: 11:31 Method of Notification: Text Reason For Visit: COMPLICATED UTI Diagnosis Discharge Diagnosis (1) Complicated UTI (urinary tract infection): Status: Acute Code(s): N39.0 - Urinary tract infection, site not specified Plan 34-year-old female with 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 Recurrent complicated UTI secondary to self-catheterization with acute pyelonephritis ? Imaging studies on admission demonstrated Diffuse thickening of the bladder suggestive of cystitis. Moderate right hydroureteronephrosis, probably reflux. Mild left hydroureteronephrosis, probably reflux. Bilateral heterogeneous nephrogram of the kidneys, probably acute pyelonephritis. No obstructing stone or drainable abscess formation. Severe chronic atrophy of the left kidney. Patient was admitted to regular nursing floor started on Zosyn cultures sent result pending. Case was discussed with Dr. Clark with urology on admission ? 10/04/2024;Patient urine cultures exhibited no growth. This is not unexpected given her recent treatment at an outside hospital 2 weeks prior. Will defer discharge antibiotic therapy to ID. Patient antibiotic therapy has been de- escalated from Zosyn to ceftriaxone the day prior by ID ? Patient was discharged home on cefdinir per recommendations from Dr. Qureshi with ID 2. Class II obesity with BMI of 37 ? Weight loss advised 3. Anemia ? Secondary to chronic disorder monitoring H&H and transfuse if patient becomes symptomatic or hemoglobin falls below 7 4. Mild thrombocytopenia ? Will monitor with daily CBC with differential 5. DVT prophylaxis ? Bilateral SCDs Time spent in the patient's overall evaluation,decision-making process, review of diagnostic data, adjustment of management, discussion with other providers, nursing nursing and ancillary staff involved in patient's care documentation, 38 Minutes Medications at Discharge Home Medications NK 10/01/24 cefdinir 300 mg capsule 300 mg PO BID #14 caps 10/04/24 Physical Exam Narrative GENERAL: cooperative HEENT: Atraumatic; normocephalic EYES; Anicteric, Normal Conjunctiva NECK; supple, normal thyroid, RESPIRATORY: Diminished to auscultation CARDIOVASCULAR: Regular S1 S2, GI: soft, normoactive bowel sounds, : Neobladder reconstruction with membrane,metanephroma through with she empties bladder. EXTREMITIES: No edema, no clubbing, MUSCULOSKELETAL: no muscle wasting NEURO: Awake; no lateralizing signs. SKIN: No Rash PSYCH; Flat affect Weight / BMI Weight Weight: 91.4 kg Body Mass Index (BMI) 37.0 ABG / Lab / Microbiology Data 10/04/24 06:08 10/04/24 06:08 Laboratory: Laboratory Results - last 24 hr 10/04/24 06:08: WBC 6.8, RBC 3.83 L, Hgb 12.1, Hct 34.6 L, MCV 90.3, MCH 31.6, MCHC 35.0, RDW Std Deviation 40.3, RDW Coeff of Janelle 12.1, Plt Count 157, MPV 10.8, Immature Gran % (Auto) 0.400, Neut % (Auto) 73.6 H, Lymph % (Auto) 16.2 L, [place] % (Auto) 8.2, Eos % (Auto) 1.3, Baso % (Auto) 0.3, Absolute Neuts (auto) 5.0, Absolute Lymphs (auto) 1.11, Nucleated RBC % 0, Sodium 140, Potassium 3.7, Chloride 107, Carbon Dioxide 20.6 L, Anion Gap 12, BUN 8, Creatinine 0.78, Estim Creat Clear Calc 108.90, Est GFR (MDRD) Non-Af 104, BUN/Creatinine Ratio 10.0, Glucose 94, Calcium 8.7 Microbiology: Microbiology 10/02/24 12:31 Urine Catheter - Catheter Urine Culture - Final Culture exhibits no growth. D/C Instructions Discharge Activity: Return to Normal Activity Call your doctor if you observe: Fever of 101 or Higher, Shortness of breath, Fainting spells and Chest pain DC O2, CPAP, BIPAP Needs Home O2 Discharge instructions: No Meaningful Use Info Meaningful Use Meaningful Use Diagnoses (Choose all that apply): None applicable Discharge Plan Admission Admit Date/Time: 10/01/24 19:20 Attending Provider: Mauricio Levine Primary Care Provider: Malaika Romero Consulting Providers: Maggie Crook; Amberly Clark; Philipp Qureshi; Tom Cortez Discharge Orders/Prescriptions Prescriptions: New cefdinir 300 mg capsule 300 mg PO BID Qty: 14 0RF No Action NK Referrals / Follow Up: SEAN TELLEZ [Other] Amberly Clark MD [Med Staff - Active Staff] - Within 2 Weeks Malaika Romero PA [Primary Care Provider] - In 1 Week Disposition Disposition (needs filled in before D/C Order can be placed): Home, Self Care Charges/Coding Visit Charges Inpatient E&M: 35604 Disch Hosp >30min
--- NOTE | 2024-10-04 14:56 | PN.ID_ITS ---
Physical Exam Narrative Feeling better, no abd pain, no fever Const alert and no apparent distress General Appearance: cooperative Resp normal air movement and clear to auscultation bilaterally Cardio regular rate and regular rhythm GI soft to palpation, non-tender and non-distended Skin no rashes or lesions noted ID ID: Route of nutrition/ use of supplements: [] Nutritional Intake: [] IV Site: [] Kurtz Catheter: [] Assessment & Plan Assessment/Plan (1) Complicated UTI (urinary tract infection): PLAN: Complicated urologic history. CT done. Seen by urology. Ecoli uti at [facility] end of August (R to amp, I to unasyn). Ucx here neg, but had been on abx prior to it being collected. On ceftriaxone. Ok for home with one week po cefdinir, d/w primary team. Will follow prn
[2024-10-04 14:59] VITALS: BP 115/76; PULSE 89; RESP 18; TEMP 36.9; O2SAT 99
== END 2024-10-04 16:01 | disposition home or self-care (01) | DRG 699 ==
PROVIDERS: Internal Medicine; Admitting Provider Internal Medicine; PCP Physician Assistant; Visit Provider Internal Medicine
DX: T83.518A Infection and inflammatory reaction due to other urinary catheter, initial encounter (principal); N10 Acute pyelonephritis; N13.6 Pyonephrosis; D63.8 Anemia in other chronic diseases classified elsewhere; E66.812 Obesity, class 2; D69.6 Thrombocytopenia, unspecified; Z93.6 Other artificial openings of urinary tract status; N31.9 Neuromuscular dysfunction of bladder, unspecified; N39.490 Overflow incontinence; X58.XXXA Exposure to other specified factors, initial encounter; Z68.37 Body mass index [BMI] 37.0-37.9, adult; Z87.718 Personal history of other specified (corrected) congenital malformations of genitourinary system
CPT/HCPCS: 36415; 74178; 80048; 85025; 87086; Q9967; A4216; J0696

== ENCOUNTER → 2024-11-08 | Outpatient (CLI) | payer OTHER, SELFPAY ==
--- OUTSIDE RECORDS SUMMARY | 2024-11-08 06:59 | XMS RPT_ITS | CCD ---
Author Organization [facility] Care Team Providers Care Fishing Hand Name Role Phone Romero PA-C, Malaika J Unavailable Romero PA-C, Malaika J Unavailable Vidal GARCIA, Yina J Unavailable Amber KHANNA, Dr. Gaming Unavailable Gillian Ho LPN Unavailable Unavailable Amber KHANNA, Dr. Gaming Unavailable [phone] Armaan KHANNA, Dr. Serrano Admit Provider Armaan KHANNA, Dr. Serrano Other Provider Malaika Bradley Primary Care Provider [phone] Amber KHANNA, Dr. Gaming Other Provider Kiera KHANNA, Dr. Segal Other Provider Abner KHANNA, Dr. Martínez Attending Provider Unavaila adrian Cortez MD, Dr. Santos Other Provider Dr. Tom Cortez MD Attending Provider Dr. Lisa Clark MD Attending Provider Dr. Mauricio Levine MD Other Provider Unavailable Rachel Tellez DO Unavailable Aniyah JAMES, Sharri Frias Unavailable Unavaila LESTER Crawford Admitting Unavailable LESTER GALLARDO Primary Care Unavailable LESTER GALLARDO Attending Unavailable NICK, MALAIKA J Consulting Unavailable ROMERO, MALAIKA J Referring Unavailable PROVIDER, UNKNOWN Consulting Unavailable MALAIKA ROMERO Referring Unavailable JOSE ANTONIO LOPEZ MD Admitting Unavailable JOSE ANTONIO LOPEZ MD Primary Care Unavailable JOSE ANTONIO LOPEZ MD Attending Unavailable MALAIKA ROMERO Consulting Unavailable PROVIDER, UNKNOWN Consulting Unavailable RACHEL TELLEZ Referring Unavailable RACHEL TELLEZ Attending Unavailable RACHEL TELLEZ Referring Unavailable RACHEL TELLEZ Attending Unavailable RACHEL TELLEZ Attending Unavailable LISA CLARK Referring Unavailable Maggie Crook Admitting Unavailable Lisa Clark Attending Unavailable Maggie Crook Consulting Unavailable Romero, [place] Primary Care Unavailable Lisa Clark Consulting Unavailable Philipp Qureshi Consulting Unavailable Diego, Tom Consulting Unavailable Mauricio Levine Consulting Unavailable DAVID CARRANZA Attending Unavailab tegan Romero, Malaika Primary Care Unavailable Armaan, Maggie Admitting Unavailable Maggie Crook Consulting Unavailable Nick, Malaika Primary Care Unavailable Mauricio Levine Attending Unavailable Lisa Clark Consulting Unavailable Philipp Qureshi Consulting Unavailable Diego, Tom Consulting Unavailable Mauricio Levine Attending Unavailable Maggie Crook Attending Unavailable Tom Cortez Attending Unavailable Medications Current Medications Medication Drug Class(es) Dates Sig (Normalized) Sig (Original) cefdinir 300 mg oral capsule (10 sources) Cephalosporin Antibacterial Start: 10-04-2024 cefdinir (Omnicef) 300 MG capsule 300 mg. 10/04/2024 Active Elsie (Nk) (1 source) Start: 10-01-2024 Elsie (Nk) Active October 01, 2024 12:00am Completed/Discontinued Medications Medication Drug Class(es) Dates Sig (Normalized) Sig (Original) iopamidol (Isovue-370) 76 % injection 75 mL (2 sources) Start: 10-18-2024 End: 10-18-2024 take 75 mL intravenously once as needed 75 mL, IntraVENous, IMG once PRN, contrast, Starting on Wed10/18/24 at 0901, For 1 dose sulfamethoxazole 400 mg / trimethoprim 80 mg oral tablet (8 sources) Dihydrofolate Reductase Inhibitor Antibacterial, Sulfonamide Antimicrobial Start: 10-11-2024 End: 10-18-2024 take 1 tablet by mouth twice daily sulfamethoxazol e-trimethoprim (Bactrim) 400-80 MG tablet Indications: Recurrent UTI Take 1 tablet by mouth 2 times daily for 7 days. Start taking if symptoms of UTI 14 tablet 10/11/2024 10/18/2024 Problems Active Problems Problem Classification Problem Date Documented Date Episodic/Chronic Abdominal pain (2 sources) Right lower quadrant pain; Translations: [Right lower quadrant pain] Onset: 09-09-2024 Episodic Genitourinary symptoms and ill-defined conditions (20 sources) Overflow incontinence of urine; Translations: [Overflow incontinence] Onset: 09-09-2024 10-02-2024 Chronic Genitourinary symptoms and ill-defined conditions (7 sources) Retention of urine; Translations: [Retention of urine, unspecified] Onset: 10-11-2024 10-02-2024 Episodic Headache; including migraine (20 sources) Chronic headache disorder; Translations: [Headache] 02-17-2019 Episodic Nephritis; nephrosis; renal sclerosis (19 sources) Atrophy of left kidney; Translations: [Atrophy of kidney (terminal)] Onset: 10-12-2024 10-02-2024 Chronic Other diseases of bladder and urethra (17 sources) Neurogenic bladder; Translations: [Neuromuscular dysfunction of bladder, unspecified] Onset: 10-12-2024 10-02-2024 Chronic Other diseases of bladder and urethra (10 sources) Bladder neck incompetence; Translations: [Other specified disorders of bladder] Onset: 10-12-2024 10-12-2024 Chronic Other diseases of bladder and urethra (3 sources) Neuromuscular dysfunction of bladder, unspecified; Translations: [Neuromuscular dysfunction of bladder, unspecified] Onset: 10-12-2024 Chronic Other diseases of kidney and ureters (2 sources) Hydroureter; Translations: [Hydroureter] 10-02-2024 Episodic Other diseases of kidney and ureters (3 sources) Unspecified hydronephrosis; Translations: [Unspecified hydronephrosis] Onset: 09-09-2024 Episodic Other diseases of kidney and ureters (2 sources) Hydroureter; Translations: [Hydroureter] Onset: 09-09-2024 Episodic Other diseases of kidney and ureters (17 sources) Bilateral hydronephrosis ; Translations: [Unspecified hydronephrosis] Onset: 10-12-2024 10-12-2024 Episodic Residual codes; unclassified (20 sources) Varicella immune; Translations: [Other specified health status] 02-17-2019 Episodic Residual codes; unclassified (15 sources) Absent kidney; Translations: [Acquired absence of kidney] Onset: 10-12-2024 10-12-2024 Episodic Residual codes; unclassified (2 sources) Acquired absence of kidney; Translations: [Acquired absence of kidney] Onset: 10-12-2024 Episodic Septicemia (except in labor) (1 source) Sepsis, unspecified organism; Translations: [Sepsis, unspecified organism] Onset: 09-09-2024 Episodic Unclassified (13 sources) Headache - The onset of the [...] getting the new glasses (was [facility] at [facility] for exam and then went online to purchase the glasses).), jaw claudication, nausea, unconsciousness, vertigo or vomiting. Note for Headache: Hasn't taken any medications for the headaches.Goes to chiropractor once a month. Sometimes has massages but none recently.No other symptoms with the headaches.No family history of headaches. Has good water intake.Works as a school librarian.No cold symptoms prior to headaches starting. 02-17-2019 Unclassified (1 source) Follow up from hospital stay - Name of Hospital: [facility] (transferred from [facility]). Date of Admission: 10/01/2024. Date of Discharge: 10/04/2024. The patient was hospitalized for recurrent UTI with acute pyelonephritis . New medications include Cefdinir 300mg BID X 7 days. Consultations ordered while in the hospital include Urology (Scheduled with Dr. Rachel Tellez 10/11/2024). No post hospital therapies were ordered. Patient was discharged to home. Current Symptoms: fatigue (still feeling tried. She needs to rest often.). Note for Follow up from hospital stay: She is having diarrhea and no appetite, feels these are side effects from the antibiotic. She has been taking a probiotic the past day or so. Eats yogurt occasionally. Patient feels that these side effects are not severe enough to change the antibiotic she is taking. 10-09-2024 Unclassified (1 source) [ADDITIONAL REASON] Transition into care - The patient is transitioning into care from a hospital ([facility]) and a summary of care was reviewed. 10-09-2024 Urinary tract infections (20 sources) Urinary tract infectious disease; Translations: [Urinary tract infection, site not specified] Onset: 09-09-2024 09-14-2024 Episodic Past or Other Problems Problem Classification Problem Date Documented Date Episodic/Chronic Unclassified (6 sources) Follow up consultation - The patient is here to follow-up after hospitalization ([facility]) on : (09/10/2024- 09/11/2024). Current symptoms [...] since she was a child. 09-14-2024 Unclassified (6 sources) [ADDITIONAL REASON] Transition into care - The patient is transitioning into care from a hospital and a summary of care was reviewed. 09-14-2024 Unclassified (3 sources) Atrophy of left kidney 10-12-2024 NEGATED: Highlighted row has been ruled out!Unclassified (13 sources) No Known / History Onset: 02-17-2019 02-17-2019 Results Test Name Value Interpretation Reference Range Facility 36on 11-06-2024 36 Call placed to ej reece advised of recommendations . Urine culture order faxed to [facility] outpatient lab [phone] [facility] 36 Would have her submi t a urine culture to nearest lab. For UTI symptoms, in light of her sister's wedding on Wednesday, will do bactrim DS BID x 1 week Normal [facility] 36 Spoke with patient. She reports right back pain, on and off, for last couple weeks. She has been taking the Bactrim , 1 pill at at time, PRN kidney pain. Only has 3 pills left. Should she get a culture and then take a full 7 day course of the Bactrim when she gets the pain? States she did finally start her period yesterday. Was 3-4 weeks late, very unusual for her. Has her sister's wednesday, doesn't want to be without medication. [facility] 36 S: Patient spoke sonya CRESPO RN regarding Symptoms/Concerns: CB - continued UTI symptoms Provider: Dr. Tellez Practice Name: Urology Insurance Name [facility] [employer] [facility] RTE Ran No - no RTE available for insurer B: Onset of symptoms/concern Unknown A: No answer upon callback. Message left on identified voicemail to call office back with further questions or concerns. R: No contact call. RN will forward TE to office for follow up. Reason for Disposition ? Message left on identified voicemail Protocols used: No Contact or Duplicate Contact [id number] [facility] 36on 10-19-2024 36 Spoke to pt and move d her appt to after her sx so they can go over the results. Scheduled for 11/28/[address] Tellez at [address] [facility] 36on 10-18-2024 36 Need to move Lora' s appointment on 11/15/24 as it was supposed to be after her surgery which is scheduled for 11/17/24 Any date after 11/17/24 is fine to discuss OR findings Normal [facility] CREATININE, SERUMon 10-19-19 Creatinine [Mass/Vol] 1.03 mg/dL Normal 0.57-1.11 [facility] Comment on above: Performed By: #### L [id number] #### Ratoprinter: ZAC PERSON ([phone]) [facility] ([facility]) [address] [place] [address] GLOMERULAR FILTRATION RATE ML/MIN/1.73 SQ M.PREDICTED 74.2 mL/min/1.73m*2 Normal >60.0 [facility] Comment on above: Result Comment: Calc ulation based on the Chronic Kidney Disease Epidemiology Collaboration (CKD-EPI) equation refit without adjustment for race Performed By: #### L [id number] #### Ratoprinter: ZAC PERSON ([id number]) [facility] ([facility]) [address] [place] [address] CT Kidney and Ureter and Uri nary bladder WO and W contrast Jose Rafael 10-18-2024 1. Bilateral severe hydroureter with mild right-sided hydronephrosis, without obstructive calculus. Findings may reflect a sequela of ureterovesicular junction stricture or chronic outlet obstruction. 2. Striated enhancement of the right kidney, which may reflect a sequela of pyelonephritis in the appropriate context. Correlate with urinalysis. 3. Chronic left renal atrophy. 4. Postsurgical changes in the bladder. Report Dictated on Electronically Signed By: Floyd Baker MD Electronically Signed Date/Time: 10/18/2024 3:01 PM [facility] Name[facility] : 1990 [id number] Exam Date/Time: 10/18/2024 09:54 Procedure: CT UROGRAM W WO IV CONTRAST Ordering Provider: TELLEZ ELIZABETH Reason For Exam: Hematuria; recurrent UTI, bladder reconstruction, hydronephrosis CT ABDOMEN AND PELVIS WITHOUT AND WITH CONTRAST CLINICAL INDICATION: Hematuria TECHNIQUE: Transaxial sequence was performed through the abdomen and pelvis initially without contrast and again during the intravenous infusion of 75 mL nonionic contrast media followed by a delayed sequence. Additionally, 3-D reformats were performed by myself on a separate workstation.. Oral contrast: Not given Dose reduction was employed with automated exposure control. COMPARISON: None. FINDINGS: Lung bases: No pleural effusion or focal consolidation. Chest wall: Unremarkable. Liver: The liver is normal in size and contour. No focal hepatic lesions identified. Biliary system: The biliary system is not dilated. The gallbladder is normal in appearance. Spleen: The spleen is normal in size and contour. Pancreas: No significant abnormality. Adrenal glands: No significant abnormality. Kidneys/ Ureter: Left renal atrophy is identified. Striated enhancement of the right kidney noted otherwise. Mild right hydronephrosis noted with severe right hydroureter observed, without obstructive calculus. Chronic left-sided hydroureter is seen with thickened urothelial wall. No evidence of nephrolithiasis. No evidence of focal renal lesions. Bladder: Postsurgical changes are noted in the bladder, with portion of bladder tissue extending to the umbilicus. Pelvic organs: No masses or other significant abnormalities seen. Bowel: Esophagus is unremarkable. The stomach is unremarkable. The small bowel is of normal caliber throughout without evidence of wall thickening or obstruction. The appendix is not definitively visualized, however, there is no evidence of periappendiceal fat stranding to suggest appendicitis. The large bowel is without evidence of dilatation or thickening. Mesentery/Intraperitone um: No intraperitoneal free fluid or air is seen. Mesentery is normal in appearance. Lymph nodes: No lymphadenopathy Vasculature: The abdominal aorta is normal in caliber without evidence of aneurysmal dilatation. The venous vasculature appears grossly unremarkable. Abdominal wall: The abdominal wall soft tissues appear unremarkable. Osseous structures: No suspicious osseous lesions identified. No significant degenerative changes are noted in the thoracolumbar spine. [facility] Floyd Baker MD - 10/18/2024 Patient Name: [facility]ONES : 1990 [id number] Exam Date/Time: 10/18/2024 09:54 Procedure: CT UROGRAM W WO IV CONTRAST Ordering Provider: TELLEZ ELIZABETH Reason For Exam: Hematuria; recurrent UTI, bladder reconstruction, hydronephrosis CT ABDOMEN AND PELVIS WITHOUT AND WITH CONTRAST CLINICAL INDICATION: Hematuria TECHNIQUE: Transaxial sequence was performed through the abdomen and pelvis initially without contrast and again during the intravenous infusion of 75 mL nonionic contrast media followed by a delayed sequence. Additionally, 3-D reformats were performed by myself on a separate workstation.. Oral contrast: Not given Dose reduction was employed with automated exposure control. COMPARISON: None. FINDINGS: Lung bases: No pleural effusion or focal consolidation. Chest wall: Unremarkable. Liver: The liver is normal in size and contour. No focal hepatic lesions identified. Biliary system: The biliary system is not dilated. The gallbladder is normal in appearance. Spleen: The spleen is normal in size and contour. Pancreas: No significant abnormality. Adrenal glands: No significant abnormality. Kidneys/ Ureter: Left renal atrophy is identified. Striated enhancement of the right kidney noted otherwise. Mild right hydronephrosis noted with severe right hydroureter observed, without obstructive calculus. Chronic left-sided hydroureter is seen with thickened urothelial wall. No evidence of nephrolithiasis. No evidence of focal renal lesions. Bladder: Postsurgical changes are noted in the bladder, with portion of bladder tissue extending to the umbilicus. Pelvic organs: No masses or other significant abnormalities seen. Bowel: Esophagus is unremarkable. The stomach is unremarkable. The small bowel is of normal caliber throughout without evidence of wall thickening or obstruction. The appendix is not definitively visualized, however, there is no evidence of periappendiceal fat stranding to suggest appendicitis. The large bowel is without evidence of dilatation or thickening. Mesentery/Intraperitone um: No intraperitoneal free fluid or air is seen. Mesentery is normal in appearance. Lymph nodes: No lymphadenopathy Vasculature: The abdominal aorta is normal in caliber without evidence of aneurysmal dilatation. The venous vasculature appears grossly unremarkable. Abdominal wall: The abdominal wall soft tissues appear unremarkable. Osseous structures: No suspicious osseous lesions identified. No significant degenerative changes are noted in the thoracolumbar spine. IMPRESSION: 1. Bilateral severe hydroureter with mild right-sided hydronephrosis, without obstructive calculus. Findings may reflect a sequela of ureterovesicular junction stricture or chronic outlet obstruction. 2. Striated enhancement of the right kidney, which may reflect a sequela of pyelonephritis in the appropriate context. Correlate with urinalysis. 3. Chronic left renal atrophy. 4. Postsurgical changes in the bladder. Report Dictated on Electronically Signed By: Floyd Baker MD Electronically Signed Date/Time: 10/18/2024 3:01 PM EDT [facility] [employer] Radiology Study observation (narrative) [facility] alth CT Kidney and Ureter and Uri nary bladder WO and W contrast IVOrdered By: Floyd Baker on 10-18-2024 [employer] Work Phone: CT UROGRAM W WO IV CONTRASTo n 10-18-2024 CT UROGRAM W WO IV CONTRAST Patient Name: LORA JONES : 1990 Exam Date/Time: 10/18/2024 09:54 Procedure: CT UROGRAM W WO IV CONTRAST Ordering Provider: TELLEZ ELIZABETH Reason For Exam: Hematuria; recurrent UTI, bladder reconstruction, hydronephrosis CT ABDOMEN AND PELVIS WITHOUT AND WITH CONTRAST CLINICAL INDICATION: Hematuria TECHNIQUE: Transaxial sequence was performed through the abdomen and pelvis initially without contrast and again during the intravenous infusion of 75 mL nonionic contrast media followed by a delayed sequence. Additionally, 3-D reformats were performed by myself on a separate workstation.. Oral contrast: Not given Dose reduction was employed with automated exposure control. COMPARISON: None. FINDINGS: Lung bases: No pleural effusion or focal consolidation. Chest wall: Unremarkable. Liver: The liver is normal in size and contour. No focal hepatic lesions identified. Biliary system: The biliary system is not dilated. The gallbladder is normal in appearance. Spleen: The spleen is normal in size and contour. Pancreas: No significant abnormality. Adrenal glands: No significant abnormality. Kidneys/ Ureter: Left renal atrophy is identified. Striated enhancement of the right kidney noted otherwise. Mild right hydronephrosis noted with severe right hydroureter observed, without obstructive calculus. Chronic left-sided hydroureter is seen with thickened urothelial wall. No evidence of nephrolithiasis. No evidence of focal renal lesions. Bladder: Postsurgical changes are noted in the bladder, with portion of bladder tissue extending to the umbilicus. Pelvic organs: No masses or other significant abnormalities seen. Bowel: Esophagus is unremarkable. The stomach is unremarkable. The small bowel is of normal caliber throughout without evidence of wall thickening or obstruction. The appendix is not definitively visualized, however, there is no evidence of periappendiceal fat stranding to suggest appendicitis. The large bowel is without evidence of dilatation or thickening. Mesentery/Intraperitone um: No intraperitoneal free fluid or air is seen. Mesentery is normal in appearance. Lymph nodes: No lymphadenopathy Vasculature: The abdominal aorta is normal in caliber without evidence of aneurysmal dilatation. The venous vasculature appears grossly unremarkable. Abdominal wall: The abdominal wall soft tissues appear unremarkable. Osseous structures: No suspicious osseous lesions identified. No significant degenerative changes are noted in the thoracolumbar spine. IMPRESSION: 1. Bilateral severe hydroureter with mild right-sided hydronephrosis, without obstructive calculus. Findings may reflect a sequela of ureterovesicular junction stricture or chronic outlet obstruction. 2. Striated enhancement of the right kidney, which may reflect a sequela of pyelonephritis in the appropriate context. Correlate with urinalysis. 3. Chronic left renal atrophy. 4. Postsurgical changes in the bladder. Report Dictated on Electronically Signed By: Floyd Baker MD Electronically Signed Date/Time: 10/18/2024 3:01 PM EDT Recurrent UTI's. Hx of Left kidney atrophy and hydro.urogram protocol done. PT denies . [facility] Creatinine [Mass/Vol]on GFR/1.73 sq M.predicted (S/P/Bld) [Vol rate/Area] 74.2 mL/min - [facility] Comment on above: Calculation based on the Chronic Kidney Disease Epidemiology Collaboration (CKD-EPI) equation refit without adjustment for race Interpretation and review of laboratory results Normal [facility] Creatinine, Serumon 10-19-19 25 Creatinine [Mass/Vol] 1.03 mg/dL 0.57 - 1.11 mg/dL [facility] 29on 10-17-2024 29 Addended by: SAVANNA SMITH on: 10/18/2024 09:00 AM Modules accepted: Orders [facility] 36on 10-17-2024 36 Spoke to pt about upcoming PAT (phone call) and surgery at [facility] Doctor: Rosalinda Location:[facility] PAT (phone call): 11/08/2024 9:30 AM PAT instructions: Please bring photo ID, insurance card, list of all current medications Surgery: 11/17/2024 8:30 AM Surgery arrival time: 6:30 AM [facility] 36 Patient returned yonis l. Message released to patient as written. Rachel Tellez, DO to [facility] [employer] 10/14/24 9:33 AM Please let pt know her urine culture from office did not show any bacteria Patient's further questions if applicable: none Were all questions from office addressed or relayed to the patient from encounter: Yes [facility] 36 Called and LM to ret urn call. Please inform of provider msg below when Pt returns call. [facility] 36 Called and spoke to patient she stated she feels better. [facility] Progress Noteon 10-14-2024 Progress Note Please let pt know h er urine culture from office did not show any bacteria [facility] 36on 10-13-2024 36 S: Patient spoke wit h [facility] nurse regarding abdominal pain. B: Onset of symptoms/concern Patient states that she's been hospitalized twice over the last 2 months for UTIs. Symptoms began yesterday. A: She reports abdominal pain on the left side slightly below the umbilicus. She reports pain is intermittent, rates pain 4/10. She reports diarrhea, about 5 episodes within the last 24 hours. She reports dysuria. Denies urgency, frequency, back pain, fever, hematuria. She reports left sided chest pain that began yesterday. Chest pain is intermittent, rates pain 2-6/10 and states it occurs about twice daily. Denies chest pain at this time. Denies pain in arm, jaw. R: Patient advised that recommendation is to be evaluation within 24 hours. Patient advised to be evaluated at Urgent Care or ED as it is Wednesday and after hours. Patient will start Bactrim as she has dysuria. Patient verbalized understanding. No further needs at this time. Reason for Disposition [1] MODERATE pain (e.g., interferes with normal activities) AND [2] pain comes and goes (cramps) AND [3] present > 24 hours (Exception: Pain with Vomiting or Diarrhea - see that Guideline.) Protocols used: Abdominal Pain - ADULT-AH Normal [facility] AMB POC URINALYSIS DIP STICK AUTO W/O MICROon 10-11-2024 Bilirubin, UA Negative [facility] h Blood, UA Negative [facility] Glucose, UA Negative [facility] Ketones, UA (mg/dL) Negative Negative mg/dL [facility] Leukocytes, UA Small [facility] th Nitrite, UA Negative [facility] pH, UA 6.0 [facility] Protein, UA Negative [facility] Spec Grav, UA 1.010 [facility], [facility]A 0.2 [facility] He alth [facility] Office Visiton 10-11-2024 Follow-up visit [id number] Lora Jones 1990 F Date Provider Department Center 10/11/2024 [id number]-GFYVRACHEL TELLEZ [facility] URO None No family history on file Level of Service:05634 [place] OFFICE/OUTPATIENT NEW HIGH MDM 60 MINUTES Reason for Visit and Comments: New Patient [542] - Recurrent UTIs. Pt is on 1 week Cefdinir, finishing this evening. Presently denies any urinary issues. Normal [facility] Progress Noteon 10-11-2024 Progress Note Rachel Tellez DO Urology Office Visit New patient [facility] - [place] [address] [facility] [address] Dept: [phone] Dept Loc: [phone] PATIENT NAME: Lora Jones DATE OF : 1990 REFERRING PROVIDER: Lisa Clark MD PCP: No primary care provider on file. DATE OF VISIT: 10/11/24 CHIEF COMPLAINT: Chief Complaint Patient presents with New Patient Recurrent UTIs. Pt is on 1 week Cefdinir, finishing this evening. Presently denies any urinary issues. Impression: Diagnoses and all orders for this visit: Neurogenic bladder - CT UROGRAM w wo iv contrast; Future Mitrofanoff appendicovesicostomy present ([facility] ([facility]) Recurrent UTI - AMB POC URINALYSIS DIP STICK AUTO W/O MICRO - CT UROGRAM w wo iv contrast; Future - Urine culture - sulfamethoxazole-trimet hoprim (Bactrim) 400-80 MG tablet; Take 1 tablet by mouth 2 times daily for 7 days. 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 Requested records [facility] so we can determine what surgeries she has had Bilateral hydronephrosis noted on outside CT Has had recurrent infections Check CT urogram to further evaluate anatomy, evaluate for obstruction Stress incontinence/incompeten t bladder neck S/p possible bladder neck reconstruction as a child with Dr Pires May be interested in surgical options for treatment of SAHIL in the future Will plan for OR for cystoscopy, pelvic examination under anesthesia, cystogram, possible pyelograms (wants to wait until after her sister's wedding which is 11/10/24) Follow Up: Follow up for CT urogram , then OR . Rachel Tellez, DO Reconstructive Urology [facility] Subjective: Ms. Jones is a 34 y.o. female who presents to the office for recurrent UTIs. Records have been reviewed HPI HPI Ms. Jones presents with concern for recurrent urinary tract infections. She is being referred by Lisa Clark in [place], [place] to establish care She has a past urological history of severe UTIs as a child. She was hospitalized as a child with UTI/pyelonephritis. Her mom said that as a child, she had a vaginal bulge which was snipped. Possibly a ureterocele? Also had a cyst of some sort in the pelvis; when she was 7 years old she had this cut but there was a problem with the bladder. 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 She is self catheterizing Q 2 hours during the day At night she will sometimes leak urine both from the mitrofanoff and from below Uses a 12 fr straight catheter to perform CIC She has not followed with urology for many years since age 14 (Dr Pires / Dr Barron) She wears depends daily Can use 3-7 per day Sometimes soaked More so at night than day Does not do any irrigation of the bladder - we do not know if she has had a bladder augment Sister is getting nov 10 would like to wait until after this date for surgery 10/02/24 [facility]) Moderate right hydroureteronephrosis, mild left hydroureteronephrosis. Severe left renal atrophy. Thickened/lobulated bladder. Mitrofanoff seen going to umbilicus When did infections start? This past year How many UTIs in the past 12 months? Hospitalized twice this summer with E coli pyelonephritis What symptoms are typically present? Severe back/flank/abdominal pain History of urolithiasis? No History of prior bladder / urinary surgery? Yes - neurogenic bladder with Mitrofanoff (2001 or 2002); performs CIC via mitrofanoff Average daily fluid intake? About 64 oz water Problems with constipation? Diarrhea (due to the antibiotics) For women, joe or post menopausal? Pre She has normal menstrual cycles Catheterizes q 2 hrs. Usually about 300-350cc Q 2 hrs Nocturia x yes. Urgency: rare UUI: some leakage at times SAHIL: yes Dysuria: denies Gross Hematuria: denies Documented history of urine cultures: 10/05/24 >100K E coli (R ampicillin), >100K Group C/D Step 08/2024 >100K E coli Antibiotic allergies: None Prior treatment(s) tried: Cefdinir 300mg BID x 7 days (more content not included)... Normal [facility] URINE CULTURE [CCL]on 2024 Bacteria identified Cx Nom (U) URCUL See Results Below See Below CULTURE, URINE ESCHERICHIA COLI >=100,000 CFU/ml Escherichia coli CULTURE, URINE STREPTOCOCCUS DYSGALACTIAE (GROUP C/G STREPTOCOCCUS) >=100,000 CFU/ml Streptococcus dysgalactiae (Group C/G streptococcus) Susceptibility testing not performed on beta hemolytic streptococci due to predi ORGANISM: ESCHERICHIA COLI ANTIBIOTIC VENUS DILUTN VENUS INTERP Ampicillin >=32 Resistant Cefazolin <=4 Susceptible For uncomplicated urinary tract infections, cefazolin results can be used to pre Ceftriaxone <=1 Susceptible Cefepime <=1 Susceptible Ertapenem <=0.5 Susceptible Meropenem <=0.25 Susceptible Ampicillin/Sulbact 16 Intermediate Piperacillin/Tazobac <=4 Susceptible Gentamicin <=1 Susceptible Tobramycin <=1 Susceptible Trimeth sulfameth <=20 Susceptible Ciprofloxacin <=0.25 Susceptible Nitrofurantoin <=16 Susceptible This test was developed and its performance characteristics determined by the [facility] [place] ([facility]). It has not been cleared or approved by the FDA. [facility] is regulated under CLIA as qualified to perform high-complexity testing. This test is used for clinical purposes. It should not be regarded as investigational or for research. SOURCE: Urine (Nonspecific) [facility] [address] [place] [address] Greg Mcarthur III, M.D. [id number] SEND TO IC YES Normal [facility] Comment on above: Performed By: #### 2 [id number] #### [facility],1 [facility] [address] Absolute lymphocyte countOrd ered By: oTm Cortez on 10-04-2024 Lymphocytes Auto (Unsp spec) [#/Vol] 1.11 10*3/uL 0.83-4.51 [facility] Absolute neutrophil countOrd ered By: Tom Cortez on 10-04-2024 Neutrophils (Bld) [#/Vol] 5.0 10*3/uL 2.0-7.7 [facility] Anion gap in Serum or Plasma Ordered By: Tom Cortez on 10-04-2024 Anion gap [Moles/Vol] 12 mmol/L 06-29 [facility] Automated lymphocyte count a s percentage of total leukocytesOrdered By: Tom Cortez on 10-04-2024 Lymphocytes/100 WBC Auto (Unsp spec) 16.2 % Low 19-41 [facility] BUN/creatinine ratioOrdered By: Tom Cortez on 10-04-2024 Urea nitrogen/Creatinine [Mass ratio] 10.0 mg/mg 12-04 [facility] Basic Metabolic Profile (BMP )on 10-04-2024 BUN/CRE 10.0 RATIO Normal 12-04 [facility] Comment on above: Performed By: #### L 500.2500, L100.0100 #### [facility] [address] [place], [address] Calcium [Mass/Vol] 8.7 mg/dL Normal 7.6-11.0 [facility] Comment on above: Performed By: #### L 500.2500, L100.0100 #### [facility] [address] [place], [address] Chloride [Moles/Vol] 107 mmol/L Normal 98-108 [facility] Comment on above: Performed By: #### L 500.2500, L100.0100 #### [facility] [address] [place], [address] CO2 [Moles/Vol] 20.6 mmol/L Low 21.0-32.0 [facility] Comment on above: Performed By: #### L 500.2500, L100.0100 #### [facility] [address] [place], [address] Creatinine [Mass/Vol] 0.78 mg/dL Normal 0.70-1.20 [facility] Comment on above: Performed By: #### L 500.2500, L100.0100 #### [facility] [address] [place], [address] ECRCL 108.90 ml/min Normal 50-250 [facility] Comment on above: Performed By: #### L 500.2500, L100.0100 #### [facility] [address] [place], [address] GAP 12 Normal 5-15 [facility] Comment on above: Performed By: #### L 500.2500, L100.0100 #### [facility] [address] [place], [address] GFR/1.73 sq M.predicted among non-blacks MDRD (S/P/Bld) [Vol rate/Area] 104 mL/min/{1.73_m2} Normal >60 [facility] Comment on above: Result Comment: mL/m in/1.73m2 CKD-EPI Creatinine Equation (2020) Performed By: #### L 500.2500, L100.0100 #### [facility] [address] [place], [address] Glucose [Mass/Vol] 94 mg/dL Normal 70-99 [facility] Comment on above: Performed By: #### L 500.2500, L100.0100 #### [facility] [address] [place], [address] Potassium [Moles/Vol] 3.7 mmol/L Normal 3.3-5.1 [facility] Comment on above: Performed By: #### L 500.2500, L100.0100 #### [facility] [address] [place], [address] Sodium [Moles/Vol] 140 mmol/L Normal 133-145 [facility] Comment on above: Performed By: #### L 500.2500, L100.0100 #### [facility] [address] [place], [address] Urea nitrogen [Mass/Vol] 8 mg/dL Normal 4-19 [facility] Comment on above: Performed By: #### L 500.2500, L100.0100 #### [facility] [address] [place], [address] Basophil percentageOrdered B y: Tomdenise Cortez on 10-04-2024 Basophils/100 WBC (Bld) 0.3 % 0-1 [facility] CBC W/Diff, Automatedon 09-16-2024 Absolute Lymph 1.11 X10 3/uL Normal 0.83-4.51 [facility] Comment on above: Performed By: #### L 500.2500, L100.0100 #### [facility] [address] [place], [address] Absolute Neut 5.0 X10 3/uL Normal 2.0-7.7 [facility] Comment on above: Performed By: #### L 500.2500, L100.0100 #### [facility] [address] [place], [address] Basophils/100 WBC (Bld) 0.3 % Normal 0-1 [facility] Comment on above: Performed By: #### L 500.2500, L100.0100 #### [facility] [address] [place], [address] Eosinophils/100 WBC (Bld) 1.3 % Normal 0-5 [facility] Comment on above: Performed By: #### L 500.2500, L100.0100 #### [facility] [address] [place], [address] Erythrocyte distribution width (RBC) [Ratio] 12.1 % Normal 11.6-14.6 [facility] Comment on above: Performed By: #### L 500.2500, L100.0100 #### [facility] [address] [place], [address] Hematocrit (Bld) [Volume fraction] 34.6 % Low 37-47 [facility] Comment on above: Performed By: #### L 500.2500, L100.0100 #### [facility] [address] [place], [address] Hemoglobin (Bld) [Mass/Vol] 12.1 g/dL Normal 12.0-15.0 [facility] Comment on above: Performed By: #### L 500.2500, L100.0100 #### [facility] [address] [place], [address] IG% 0.400 Normal 0.0-0.9 [facility] Comment on above: Result Comment: IG% - Immature Granulocytes (promyelocytes, myelocytes and metamyelocytes) > 1% indicates that a LEFT SHIFT is Present. Performed By: #### L 500.2500, L100.0100 #### [facility] [address] [place], [address] Lymphocytes/100 WBC (Bld) 16.2 % Low 19-41 [facility] Comment on above: Performed By: #### L 500.2500, L100.0100 #### [facility] [address] [place], [address] MCH (RBC) [Entitic mass] 31.6 pg Normal 27.0-32.0 [facility] Comment on above: Performed By: #### L 500.2500, L100.0100 #### [facility] [address] [place], [address] MCHC (RBC) [Mass/Vol] 35.0 g/dL Normal 32-36 [facility] Comment on above: Performed By: #### L 500.2500, L100.0100 #### [facility] [address] [place], [address] MCV (RBC) [Entitic vol] 90.3 fL Normal 81-99 [facility] Comment on above: Performed By: #### L 500.2500, L100.0100 #### [facility] [address] [place], [address] Monocytes/100 WBC (Bld) 8.2 % Normal 0-10 [facility] Comment on above: Performed By: #### L 500.2500, L100.0100 #### [facility] [address] [place], [address] Neutrophils/100 WBC (Bld) 73.6 % High 47-70 [facility] Comment on above: Performed By: #### L 500.2500, L100.0100 #### [facility] [address] [place], [address] Nucleated RBC (Bld) [#/Vol] 0 10*3/uL Normal 0-5 [facility] Comment on above: Performed By: #### L 500.2500, L100.0100 #### [facility] [address] [place], [address] Platelet mean volume (Bld) [Entitic vol] 10.8 fL Normal 6.2-12.0 [facility] Comment on above: Performed By: #### L 500.2500, L100.0100 #### [facility] [address] [place], [address] Platelets (Bld) [#/Vol] 157 10*3/uL Normal 150-450 [facility] Comment on above: Performed By: #### L 500.2500, L100.0100 #### [facility] [address] [place], [address] RBC (Bld) [#/Vol] 3.83 10*6/uL Low 4.2-5.4 [facility] Comment on above: Performed By: #### L 500.2500, L100.0100 #### [facility] [address] [place], [address] RDW SD 40.3 fl Normal 35.1-43.9 [facility] Comment on above: Performed By: #### L 500.2500, L100.0100 #### [facility] [address] [place], [address] WBC (Bld) [#/Vol] 6.8 10*3/uL Normal 4.4-11.0 [facility] Comment on above: Performed By: #### L 500.2500, L100.0100 #### [facility] [address] [place], [address] Carbon dioxide, total [Moles /volume] in Central venous bloodOrdered By: Tom Cortez on 10-04-2024 CO2 [Moles/Vol] 20.6 mmol/L Low 21.0-32.0 [facility] Chloride assayOrdered By: Otilia Cortez on 10-04-2024 Chloride [Moles/Vol] 107 mmol/L 98-108 [facility] Eosinophil percentageOrdered By: Tom Cortez on 10-04-2024 Eosinophils/100 WBC (Bld) 1.3 % 0-5 [facility] Erythrocyte distribution wid th ratioOrdered By: Tom Cortez on 10-04-2024 Erythrocyte distribution width (RBC) [Ratio] 12.1 % 11.6-14.6 [facility] Erythrocyte distribution wid th standard deviationOrdered By: Tom Cortez on 10-04-2024 Erythrocyte distribution width (RBC) [Ratio] 40.3 fl 35.1-43.9 [facility] Glomerular filtration rate ( GFR) estimation/1.73 sq m using serum, plasma, or whole bOrdered By: Tom Cortez on 10-04-2024 GFR/1.73 sq M.predicted among non-blacks MDRD (S/P/Bld) [Vol rate/Area] 104 mL/min/{1.73_m2} >60 [facility] Comment on above: mL/min/1.73m2 CKD-EP I Creatinine Equation (2020) Hematocrit Auto (Bld) [Volum e fraction]Ordered By: Tom Cortez on 10-04-2024 Hematocrit (Bld) [Volume fraction] 34.6 % Low 37-47 [facility] Hemoglobin measurementOrdere d By: Tom Cortez on 10-04-2024 Hemoglobin (Bld) [Mass/Vol] 12.1 g/dL 12.0-15.0 [facility] Immature granulocytes/100 WB C Auto (Bld)Ordered By: Tom Cortez on 10-04-2024 Immature granulocytes/100 WBC (Bld) 0.400 % 0.0-0.9 [facility] Comment on above: IG% - Immature Granu locytes (promyelocytes, myelocytes and metamyelocytes) > 1% indicates that a LEFT SHIFT is Present. MCV (mean corpuscular volume ) determinationOrdered By: Tom Cortez on 10-04-2024 MCV (RBC) [Entitic vol] 90.3 fL 81-99 [facility] Mean corpuscular hemoglobin (MCH) determinationOrdered By: Tom Cortez on 10-04-2024 MCH (RBC) [Entitic mass] 31.6 pg 27.0-32.0 [facility] Mean corpuscular hemoglobin concentration (MCHC) determinationOrdered By: Tom Cortez on 10-04-2024 MCHC (RBC) [Mass/Vol] 35.0 g/dL 32-36 [facility] Mean platelet volume determi nationOrdered By: Tom Cortez on 10-04-2024 Platelet mean volume (Bld) [Entitic vol] 10.8 fL 6.2-12.0 [facility] Monocyte percentageOrdered B y: Tom Cortez on 10-04-2024 Monocytes/100 WBC (Bld) 8.2 % 0-10 [facility] Neutrophil percentageOrdered By: Tom Cortez on 10-04-2024 Neutrophils/100 WBC (Bld) 73.6 % High 47-70 [facility] Nucleated red blood cell per centageOrdered By: Tom Cortez on 10-04-2024 Nucleated RBC/100 WBC (Bld) [Ratio] 0 % 0-5 [facility] Platelet countOrdered By: Otilia Cortez on 10-04-2024 Platelets (Bld) [#/Vol] 157 10*3/uL 150-450 [facility] Potassium measurement (mass/ volume)Ordered By: Tom Cortez on 10-04-2024 Potassium (Unsp spec) [Mass/Vol] 3.7 mmol/L 3.3-5.1 [facility] RBC Auto (Bld) [#/Vol]Ordere d By: Tom Cortez on 10-04-2024 RBC (Bld) [#/Vol] 3.83 10*6/uL Low 4.2-5.4 [facility] Serum creatinine measurement (mass/volume)Ordered By: Tom Cortez on 10-04-2024 Creatinine [Mass/Vol] 0.78 mg/dL 0.70-1.20 [facility] Serum glucose measurement (m ass/volume)Ordered By: Tom Cortez on 10-04-2024 Glucose [Mass/Vol] 94 mg/dL 70-99 [facility] Serum or plasma calcium nikita urement (mass/volume)Ordered By: Tom Cortez on 10-04-2024 Calcium [Mass/Vol] 8.7 mg/dL 7.6-11.0 [facility] Serum or plasma urea nitroge n measurement (mass/volume)Ordered By: Tom Cortez on 10-04-2024 Urea nitrogen [Mass/Vol] 8 mg/dL 4-19 [facility] Sodium levelOrdered By: Wesley Cortez on 10-04-2024 Sodium [Moles/Vol] 140 mmol/L 133-145 [facility] White blood cell (WBC) count Ordered By: Tom Cortez on 10-04-2024 WBC (Bld) [#/Vol] 6.8 10*3/uL 4.4-11.0 [facility] Basic Metabolic Profile (BMP )on 10-03-2024 BUN/CRE 8.0 RATIO Low 10-20 [facility] Comment on above: Performed By: #### L 100.0100, L500.2500 #### [facility] [address] [place], [address] Calcium [Mass/Vol] 8.6 mg/dL Normal 7.6-11.0 [facility] Comment on above: Performed By: #### L 100.0100, L500.2500 #### [facility] [address] [place], [address] Chloride [Moles/Vol] 108 mmol/L Normal 98-108 [facility] Comment on above: Performed By: #### L 100.0100, L500.2500 #### [facility] [address] [place], [address] CO2 [Moles/Vol] 20.3 mmol/L Low 21.0-32.0 [facility] Comment on above: Performed By: #### L 100.0100, L500.2500 #### [facility] [address] [place], [address] Creatinine [Mass/Vol] 0.95 mg/dL Normal 0.70-1.20 [facility] Comment on above: Performed By: #### L 100.0100, L500.2500 #### [facility] [address] [place], [address] ECRCL 89.41 ml/min Normal 50-250 [facility] Comment on above: Performed By: #### L 100.0100, L500.2500 #### [facility] [address] [place], [address] GAP 10 Normal 5-15 [facility] Comment on above: Performed By: #### L 100.0100, L500.2500 #### [facility] [address] [place], [address] GFR/1.73 sq M.predicted among non-blacks MDRD (S/P/Bld) [Vol rate/Area] 82 mL/min/{1.73_m2} Normal >60 [facility] Comment on above: Result Comment: mL/m in/1.73m2 CKD-EPI Creatinine Equation (2020) Performed By: #### L 100.0100, L500.2500 #### [facility] [address] [place], [address] Glucose [Mass/Vol] 96 mg/dL Normal 70-99 [facility] Comment on above: Performed By: #### L 100.0100, L500.2500 #### [facility] [address] [place], [address] Potassium [Moles/Vol] 4.0 mmol/L Normal 3.3-5.1 [facility] Comment on above: Performed By: #### L 100.0100, L500.2500 #### [facility] [address] [place], [address] Sodium [Moles/Vol] 138 mmol/L Normal 133-145 [facility] Comment on above: Performed By: #### L 100.0100, L500.2500 #### [facility] [address] [place], [address] Urea nitrogen [Mass/Vol] 8 mg/dL Normal 4-19 [facility] Comment on above: Performed By: #### L 100.0100, L500.2500 #### [facility] [address] [place], [address] CBC W/Diff, Automatedon 09-15 Absolute Lymph 1.29 X10 3/uL Normal 0.83-4.51 [facility] Comment on above: Performed By: #### L 100.0100, L500.2500 #### [facility] [address] [place], [address] Absolute Neut 7.0 X10 3/uL Normal 2.0-7.7 [facility] Comment on above: Performed By: #### L 100.0100, L500.2500 #### [facility] [address] [place], [address] Basophils/100 WBC (Bld) 0.2 % Normal 0-1 [facility] Comment on above: Performed By: #### L 100.0100, L500.2500 #### [facility] [address] [place], [address] Eosinophils/100 WBC (Bld) 0.3 % Normal 0-5 [facility] Comment on above: Performed By: #### L 100.0100, L500.2500 #### [facility] [address] [place], [address] Erythrocyte distribution width (RBC) [Ratio] 11.9 % Normal 11.6-14.6 [facility] Comment on above: Performed By: #### L 100.0100, L500.2500 #### [facility] [address] [place], [address] Hematocrit (Bld) [Volume fraction] 33.3 % Low 37-47 [facility] Comment on above: Performed By: #### L 100.0100, L500.2500 #### [facility] [address] [place], [address] Hemoglobin (Bld) [Mass/Vol] 11.6 g/dL Low 12.0-15.0 [facility] Comment on above: Performed By: #### L 100.0100, L500.2500 #### [facility] [address] [place], [address] IG% 0.400 Normal 0.0-0.9 [facility] Comment on above: Result Comment: IG% - Immature Granulocytes (promyelocytes, myelocytes and metamyelocytes) > 1% indicates that a LEFT SHIFT is Present. Performed By: #### L 100.0100, L500.2500 #### [facility] [address] [place], [address] Lymphocytes/100 WBC (Bld) 13.4 % Low 19-41 [facility] Comment on above: Performed By: #### L 100.0100, L500.2500 #### [facility] [address] [place], [address] MCH (RBC) [Entitic mass] 31.4 pg Normal 27.0-32.0 [facility] Comment on above: Performed By: #### L 100.0100, L500.2500 #### [facility] [address] [place], [address] MCHC (RBC) [Mass/Vol] 34.8 g/dL Normal 32-36 [facility] Comment on above: Performed By: #### L 100.0100, L500.2500 #### [facility] [address] [place], [address] MCV (RBC) [Entitic vol] 90.0 fL Normal 81-99 [facility] Comment on above: Performed By: #### L 100.0100, L500.2500 #### [facility] [address] [place], [address] Monocytes/100 WBC (Bld) 13.3 % High 0-10 [facility] Comment on above: Performed By: #### L 100.0100, L500.2500 #### [facility] [address] [place], [address] Neutrophils/100 WBC (Bld) 72.4 % High 47-70 [facility] Comment on above: Performed By: #### L 100.0100, L500.2500 #### [facility] [address] [place], [address] Nucleated RBC (Bld) [#/Vol] 0 10*3/uL Normal 0-5 [facility] Comment on above: Performed By: #### L 100.0100, L500.2500 #### [facility] [address] [place], [address] Platelet mean volume (Bld) [Entitic vol] 10.8 fL Normal 6.2-12.0 [facility] Comment on above: Performed By: #### L 100.0100, L500.2500 #### [facility] [address] [place], [address] Platelets (Bld) [#/Vol] 133 10*3/uL Low 150-450 [facility] Comment on above: Performed By: #### L 100.0100, L500.2500 #### [facility] [address] [place], [address] RBC (Bld) [#/Vol] 3.70 10*6/uL Low 4.2-5.4 [facility] Comment on above: Performed By: #### L 100.0100, L500.2500 #### [facility] [address] [place], [address] RDW SD 38.6 fl Normal 35.1-43.9 [facility] Comment on above: Performed By: #### L 100.0100, L500.2500 #### [facility] [address] [place], [address] WBC (Bld) [#/Vol] 9.6 10*3/uL Normal 4.4-11.0 [facility] Comment on above: Performed By: #### L 100.0100, L500.2500 #### [facility] [address] [place], [address] Urine Cultureon 10-03-2024 URC Culture exhibits no growth. Normal [facility] Comment on above: Performed By: #### M 100.2200 ####[facility] [address] [place], [address] Basic Metabolic Profile (BMP )on 10-02-2024 BUN/CRE 7.5 RATIO Low 10-20 [facility] Comment on above: Performed By: #### L 500.2500, L100.0100 #### [facility] [address] [place], [address] Calcium [Mass/Vol] 7.9 mg/dL Normal 7.6-11.0 [facility] Comment on above: Performed By: #### L 500.2500, L100.0100 #### [facility] [address] [place], [address] Chloride [Moles/Vol] 104 mmol/L Normal 98-108 [facility] Comment on above: Performed By: #### L 500.2500, L100.0100 #### [facility] [address] [place], [address] CO2 [Moles/Vol] 18.7 mmol/L Low 21.0-32.0 [facility] Comment on above: Performed By: #### L 500.2500, L100.0100 #### [facility] [address] [place], [address] Creatinine [Mass/Vol] 1.05 mg/dL Normal 0.70-1.20 [facility] Comment on above: Performed By: #### L 500.2500, L100.0100 #### [facility] [address] [place], [address] ECRCL 80.90 ml/min Normal 50-250 [facility] Comment on above: Performed By: #### L 500.2500, L100.0100 #### [facility] [address] [place], [address] GAP 11 Normal 5-15 [facility] Comment on above: Performed By: #### L 500.2500, L100.0100 #### [facility] [address] [place], [address] GFR/1.73 sq M.predicted among non-blacks MDRD (S/P/Bld) [Vol rate/Area] 72 mL/min/{1.73_m2} Normal >60 [facility] Comment on above: Result Comment: mL/m in/1.73m2 CKD-EPI Creatinine Equation (2020) Performed By: #### L 500.2500, L100.0100 #### [facility] [address] [place], [address] Glucose [Mass/Vol] 140 mg/dL High 70-99 [facility] Comment on above: Performed By: #### L 500.2500, L100.0100 #### [facility] [address] [place], [address] Potassium [Moles/Vol] 3.4 mmol/L Normal 3.3-5.1 [facility] Comment on above: Performed By: #### L 500.2500, L100.0100 #### [facility] [address] [place], [address] Sodium [Moles/Vol] 134 mmol/L Normal 133-145 [facility] Comment on above: Performed By: #### L 500.2500, L100.0100 #### [facility] [address] [place], [address] Urea nitrogen [Mass/Vol] 8 mg/dL Normal 4-19 [facility] Comment on above: Performed By: #### L 500.2500, L100.0100 #### [facility] [address] [place], [address] Blood manual differential co mment interpretation (narrative result)Ordered By: Maggie Crook on 10-02-2024 Manual differential comment Aram (Bld) [Interp] SCANNED [facility] CBC W/Diff, Automatedon 09-15 RED CELL MORPH NORM C+C Normal NORM C C [facility] Comment on above: Performed By: #### L 500.2500, L100.0100 #### [facility] [address] [place], [address] PLT EST SLT DEC Normal ADEQ [facility] Comment on above: Performed By: #### L 500.2500, L100.0100 #### [facility] [address] [place], [address] SMEAR COMMENT SCANNED Normal [facility] Comment on above: Performed By: #### L 500.2500, L100.0100 #### [facility] [address] [place], [address] CT Abd/Pelvis W/WO Contrasto n 10-02-2024 CT Abd/Pelvis W/WO Contrast [facility] [address] [place] [address] CT Abd/Pelvis W/WO Contrast MR#: [id number] Acct: [id number] Name: LORA JONES Rep #: [id number] : 1990 F 34 From: Cecilio driscoll MD PCP: EDWIN Campoverde Status: ADM IN Study: CT Abd/Pelvis W/WO Contrast Date of Exam: 09/15 10/09 Exam# [id number] Ordering Dr: Maggie Crook MD PROCEDURE: CT ABD/PELVIS W/WO CONTRAST 10/02/2024 REASON FOR EXAM: RECURRENT COMPLICATED UTI TECHNIQUE: CT ABD/PELVIS W/WO CONTRAST Coronal and Sagittal reconstruction series were provided. CONTRAST: Isovue-350 VOLUME: 100 mL One or more dose reduction techniques were used (e.g., Automated exposure control, adjustment of the mA and/or kV according to patient size, use of iterative reconstruction technique. RADIATION DOSE SUMMARY: CTDlvol: 23.68 mGy DLP: 2164 mGycm COMPARISON: None. FINDINGS: Diffuse thickening of the bladder suggestive of cystitis. Moderate right hydroureteronephrosis, probably reflux. Mild left hydroureteronephrosis, probably reflux. Bilateral heterogeneous nephrogram of the kidneys, probably acute pyelonephritis. No obstructing stone or drainable abscess formation. Severe chronic atrophy of the left kidney. Mild bilateral basilar atelectatic pulmonary changes. Well-defined 5 mm simple cyst is noted in the segment 4B of the liver. No follow-up is needed. Mild amount of reactive free pelvic fluid. Absent appendix. Normal remaining liver. Normal gallbladder and extrahepatic biliary system. Normal spleen. Normal pancreas. Normal bilateral adrenal glands. Normal size of the right kidney. There is no right renal mass. There are no right renal calculi. There is no left renal mass. There are no left renal calculi. Normal visualized stomach. Normal small intestine. Normal colon. Normal abdominal aorta. Normal inferior vena cava. Normal retroperitoneum. There is no pelvic mass lesion or lymphadenopathy. Normal abdominal wall. Normal osseous structures. CT/CT Abd/Pelvis W/WO Contrast IMPRESSION: Diffuse thickening of the bladder suggestive of cystitis. Moderate right hydroureteronephrosis, probably reflux. Mild left hydroureteronephrosis, probably reflux. Bilateral heterogeneous nephrogram of the kidneys, probably acute pyelonephritis. No obstructing stone or drainable abscess formation. Severe chronic atrophy of the left kidney. Mild bilateral basilar atelectatic pulmonary changes. Well-defined 5 mm simple cyst is noted in the segment 4B of the liver. No follow-up is needed. Mild amount of reactive free pelvic fluid. Reading Location[facility] CC: Dr. Maggie Crook MD; EDWIN Campoverde Parimutuel Cashier: Signed Normal [facility] Consultation - Infectious Dx on 10-02-2024 Consultation - Infectious Dx [facility] Medical Records Department [address] [place] [address] Consultation - Infectious Dx 10/02/24 1259 MR#: [id number] Acct: [id number] Name: LORA JONES Rep #: [id number] : 1990 34 From: Philipp Qureshi MD PCP: EDWIN Campoverde Status:ADM IN Location: MS3 [id number] Assessment Plan Assessment/Plan (1) Complicated UTI (urinary tract infection): PLAN: Complicated urologic history. CT shows staghorn calculi. Will consult urology. Reviewed [place] records, I do not see a ucx pending in their system yet. Will order one from here and request [place] records. Will follow, thank you HPI Consult Data Date of Consult: 10/02/24 HPI Narrative Reason for Consultation: uti HPI Narrative: LORA JONES, is a 34 F who presented with 2-3 days lower back pain, lower abd pain, weakness, fever, headache, not feeling well. Sees urologist at [facility], has suprapubic stoma. Recent admit to [place] a month ago, sent home with po abx for uti. Now presented to [place], transferred here, on zosyn. Feeling a little better. Full ROS performed and neg except as noted above. [facility] Medical History UTI (urinary tract infection) Home Medications ???Medication ???Instructions ???Recorded ???Last Taken ???Type NK 10/01/24 Unknown History Allergy/AdvReac Type Severity Reaction Status Date / Time No Known Allergies Allergy Verified 10/01/24 20:11 Social History Smoking Status: Never smoker Physical Exam Const alert, oriented x3 and no apparent distress General Appearance: cooperative HEENT normocephalic and head/scalp atraumatic Eyes PERRL and EOMs intact bilaterally Neck supple and No nodes Resp normal air movement and clear to auscultation bilaterally Cardio regular rate and regular rhythm GI soft to palpation, non-tender and non-distended GI Narrative: mild bilat flank soreness Extremity General Extremity: Negative for edema Skin no rashes or lesions noted Neuro CN's II-XII intact bilaterally Lab / Micro Data Attestation: I reviewed the patient's lab results. 10/02/24 05:08 10/02/24 05:08 Labs: Laboratory Results - last 24 hr 10/02/24 05:08: WBC 10.8, RBC 3.69 L, Hgb 11.7 L, Hct 33.2 L, MCV 90.0, MCH 31.7, MCHC 35.2, RDW Std Deviation 38.1, RDW Coeff of Janelle 11.6, Plt Count 128 L, MPV 11.1, Immature Gran % (Auto) 0.600, Neut % (Auto) 76.6 H, Lymph % (Auto) 5.9 L, Chester % (Auto) 16.6 H, Eos % (Auto) 0.0, Baso % (Auto) 0.3, A bsolute Neuts (auto) 8.3 H, Absolute Lymphs (auto) 0.64 L, Nucleated RBC % 0, Differential Comment SCANNED, Platelet Estimate SLT DEC, RBC Morphology NORM C+C, Sodium 134, Potassium 3.4, Chloride 104, Carbon Dioxide 18.7 L, Anion Gap 11, BUN 8, Creatinine 1.05, Estim Creat Clear Calc 80.90, Est GFR (MDRD) Non-Af 72, BUN/Creatinine Ratio 7.5 L, Glucose 140 H, Calcium 7.9 Imaging Radiology Impression Abdomen/Pelvis CT 10/02/24 05:55 IMPRESSION: Diffuse thickening of the bladder suggestive of cystitis. Moderate right hydroureteronephrosis, probably reflux. Mild left hydroureteronephrosis, probably reflux. Bilateral heterogeneous nephrogram of the kidneys, probably acute pyelonephritis. No obstructing stone or drainable abscess formation. Severe chronic atrophy of the left kidney. Mild bilateral basilar atelectatic pulmonary changes. Well-defined 5 mm simple cyst is noted in the segment 4B of the liver. No follow-up is needed. Mild amount of reactive free pelvic fluid. Reading Location: [facility] 10/02/24 1302 Cosigner Signature (if applicable): CC: EDWIN Campoverde Signed ADDENDUM by Dr. Philipp Qureshi MD on 10/04/24 at 1500 Addendum correction, no obstructing stone seen 10/04/24 1500 Cosigner Signature (if applicable): cc: EDWIN Campoverde * Signed Normal [facility] Erythrocyte morphology asses smentOrdered By: Maggie Crook on 10-02-2024 RBC morphology finding Nom (Bld) NORM C+C NORMAL NORM C&C [facility] Platelet estimateOrdered By: Maggie Crook on 10-02-2024 Platelets LM Ql (Bld) SLT DEC ADEQ [facility] Urine cultureOrdered By: Oscar Qureshi on 10-02-2024 Bacteria identified Cx Nom (U) Culture exhibits no growth. [facility] Bacteria Ur Culton Bacteria identified Cx Nom (U) ORGANISM ID: 1 >=100,000 CFU/ml Escherichia coli ORGANISM ID: 2 >=100,000 CFU/ml Streptococcus dysgalactiae (Group C/G streptococcus) Susceptibility testing not performed on beta hemolytic streptococci due to predictable susceptibility to penicillin and other beta lactams. For testing, call Microbiology within 72 hours. ORGANISM ID: 1 (ESCHERICHIA COLI) ANTIBIOTIC INTERPRETATION VENUS STATUS REFERENCE RANGE Ampicillin R >=32 F Susceptible <=8 , Intermediate >8 , Resistant >16 Cefazolin S <=4 F Susceptible 0-16 , Intermediate <0 or >16 , Resistant >16 For uncomplicated urinary tract infections, cefazolin results can be used to predict susceptibility or resistance to cephalexin. Ceftriaxone S <=1 F Susceptible <=1 , Intermediate >1 , Resistant >=4 Cefepime S <=1 F Susceptible <=2 , Susceptible-Dose Dependent >2 , Resistant >=16 Ertapenem S <=0.5 F Susceptible <=0.5 , Intermediate >.5 , Resistant >1 Meropenem S <=0.25 F Susceptible <=1 , Intermediate >1 , Resistant >2 Ampicillin/Sulbact I 16 F Susceptible <=8 , Intermediate >8 , Resistant >16 Piperacillin/Tazobac S <=4 F Susceptible <16 , Susceptible-Dose Dependent >=16 , Resistant >=32 Gentamicin S <=1 F Susceptible <=2 , Intermediate >2 , Resistant >=8 Tobramycin S <=1 F Susceptible <4 , Intermediate >=4 , Resistant >=8 Trimeth sulfameth S <=20 F Susceptible <=40 , Resistant >40 Ciprofloxacin S <=0.25 F Susceptible <0.5 , Intermediate >=.5 , Resistant >=1 Nitrofurantoin S <=16 F Susceptible <=32 , Intermediate >32 , Resistant >64 Abnormal [facility] Comment on above: Performed By: #### 6 30-4 #### [facility] CLIA [id number] [address] [place] [address] OF [facility] C-REACTIVE PROTEINon 025 CRP 17.36 mg/dl High 0.00 - 0.90 [facility] Comment on above: Performed By: #### 2 43642 #### [facility],[address] [place] [address] CBC + DIFFon 10-01-2024 Baso # 0.01 x10EE3/UL Normal 0.00 - 0.10 [facility] Comment on above: Performed By: #### 2 59214 #### [facility],[address] [place], [place] [address] Basophils/100 WBC (Bld) 0.1 % Normal 0.0 - 2.0 [facility] Comment on above: Performed By: #### 2 28269 #### [facility],[address] [place] [address] CBC + DIFF Normal [facility] Comment on above: Result Comment: CBC- COMPLETE BLOOD COUNT Performed By: #### 2 01419 #### [place] [address] [place] [address],[place] [address] EO # 0.08 x10EE3/UL Normal 0.00 - 0.50 [facility] Comment on above: Performed By: #### 2 73039 #### [facility],[address] [place] [address] Eosinophils/100 WBC (Bld) 0.7 % Normal 0.0 - 7.0 [facility] Comment on above: Performed By: #### 2 07172 #### [facility],[address] [place] [address] Erythrocyte distribution width (RBC) [Ratio] 12.3 % Normal 12.0 - 15.6 [facility] Comment on above: Performed By: #### 2 44233 #### [place] [address] Hematocrit (Bld) [Volume fraction] 41.1 % Normal 34.0 - 46.0 [facility] Comment on above: Performed By: #### 2 38419 #### [facility],[address] [place] [address] Hemoglobin (Bld) [Mass/Vol] 14.7 g/dL Normal 12.0 - 16.0 [facility] Comment on above: Performed By: #### 2 26478 #### [facility],[address] [place] [address] Lymph # 0.64 x10EE3/UL Low 0.80 - 2.80 [facility] Comment on above: Performed By: #### 2 27972 #### [address] [address] Lymphocytes/100 WBC (Bld) 5.6 % Low 20.0 - 45.0 [facility] Comment on above: Performed By: #### 2 59234 #### [place] [id number] MANUAL DIFF N/A Normal [facility] Comment on above: Performed By: #### 2 33067 #### [facility],[address] [place] [address] MCH (RBC) [Entitic mass] 33 pg Normal 27 - 33 [facility] Comment on above: Performed By: #### 2 60244 #### [facility],[address] [place] [address] MCHC 36 X10 3 Normal 32 - 36 [facility] Comment on above: Performed By: #### 2 38350 #### [facility],[address] [place] [address] MCV (RBC) [Entitic vol] 92 fL Normal 80 - 99 [facility] Comment on above: Performed By: #### 2 03434 #### [facility],[address] [place], [place] [address] Chester # 1.28 x10EE3/UL High 0.20 - 1.00 [facility] Comment on above: Performed By: #### 2 85041 #### [facility],[address] [place] [address] MONOS % 11.3 % High 0.0 - 10.0 [facility] Comment on above: Performed By: #### 2 21275 #### [facility],[address] [place] [address] Morphology Aram (Bld) [Interp] N/A Normal [facility] Comment on above: Performed By: #### 2 61380 #### [facility],[address] [place] [address] Neut # 9.37 x10EE3/UL High 1.50 - 7.10 [facility] Comment on above: Performed By: #### 2 02288 #### [facility],[address] [place] [address] Neutrophils/100 WBC (Bld) 82.4 % High 46.0 - 76.0 [facility] Comment on above: Performed By: #### 2 35710 #### [facility],[address] [place] [address] PLATELET 177 x10EE3/UL Normal 150 - 450 [facility] Comment on above: Performed By: #### 2 25295 #### [facility],[address] [place] [address] Platelet mean volume (Bld) [Entitic vol] 8.5 fL Normal 6.6 - 10.5 [facility] Comment on above: Result Comment: AUTO MATED DIFFERENTIAL Performed By: #### 2 99975 #### [facility],[address] [place] [address] RBC 4.47 x 10EE6/UL Normal 4.10 - 5.30 [facility] Comment on above: Performed By: #### 2 26863 #### [place] [address] WBC 11.4 x 10EE3/UL High 4.5 - 10.8 [facility] Comment on above: Performed By: #### 2 17388 #### [facility],[address] [place] [address] CMP with eGFRon 10-01-2024 AGE 34 years Normal [facility] Comment on above: Performed By: #### 2 87293 #### [facility],[address] [place] [address] Albumin [Mass/Vol] 3.4 g/dL Normal 3.4 - 5.0 [facility] Comment on above: Performed By: #### 2 92913 #### [place] [id number] Albumin/Globulin [Mass ratio] 0.8 {ratio} Low 0.9 - 1.6 [facility] Comment on above: Performed By: #### 2 59277 #### [facility],[address] [place] [address] ALK PHOS 69 U/L Normal 46 - 116 [facility] Comment on above: Performed By: #### 2 61705 #### [facility],[address] [place] [address] ALT [Catalytic activity/Vol] 44 U/L Normal 16 - 63 [facility] Comment on above: Performed By: #### 2 62412 #### [facility],[address] [place] [address] Anion gap [Moles/Vol] 10 mmol/L Normal 10 - 20 [facility] Comment on above: Performed By: #### 2 01206 #### [facility],[address] [place] [address] AST [Catalytic activity/Vol] 19 U/L Normal 13 - 39 [facility] Comment on above: Performed By: #### 2 34466 #### [facility],[address] [place] [address] B/C RATIO 7 ratio Normal 0 - 30 [facility] Comment on above: Performed By: #### 2 73104 #### [facility],[address] [place] [address] Bilirubin [Mass/Vol] 1.2 mg/dL High 0.2 - 1.0 [facility] Comment on above: Performed By: #### 2 78925 #### [facility],[address] [place] [address] Calcium [Mass/Vol] 8.8 mg/dL Normal 8.5 - 10.1 [facility] Comment on above: Performed By: #### 2 26833 #### [facility],[address] [place] [address] Chloride [Moles/Vol] 100 mmol/L Normal 98 - 107 [facility] Comment on above: Performed By: #### 2 93020 #### [facility],[address] [place], [place] [id number] CMP with eGFR Normal [facility] Comment on above: Result Comment: COMP REHENSIVE METABOLIC PANEL Performed By: #### 2 07203 #### [facility],[address] [place] [address] CO2 [Moles/Vol] 26.3 mmol/L Normal 21.0 - 32.0 [facility] Comment on above: Performed By: #### 2 81273 #### [facility],[address] [place], [place] [address] Creatinine [Mass/Vol] 1.23 mg/dL High 0.55 - 1.02 [facility] Comment on above: Performed By: #### 2 43531 #### [facility],[address] [place] [address] eGFR 51 ML/MINUTE Low 60 - 999 [facility] Comment on above: Performed By: #### 2 51878 #### [facility],[address] [place] [address] GFR/1.73 sq M.predicted among non-blacks MDRD (S/P/Bld) [Vol rate/Area] mL/min/{1.73_m2} Normal 60 - 999 [facility] Comment on above: Result Comment: ACCO RDING TO THE NATIONAL KIDNEY DISEASE EDUCATION PROGRAM(NKDE), A NORMAL eGFR IS A VALUE GREATER THAN OR EQUAL TO 60 ML/MIN/1.73 SQ METERS. CHRONIC KIDNEY DISEASE: <60mL/MIN/1.73 SQ METERS KIDNEY FAILURE: <15mL/MIN/1.73 SQ METERS THIS TEST SHOULD ONLY BE USED FOR PATIENTS 18 YEARS OF AGE AND OLDER. Performed By: #### 2 78270 #### [facility],[address] [place] [address] Globulin (S) [Mass/Vol] 4.4 g/dL High 1.5 - 3.8 [facility] Comment on above: Performed By: #### 2 50489 #### [address] [address] Glucose [Mass/Vol] 121 mg/dL High 74 - 106 [facility] Comment on above: Performed By: #### 2 77531 #### [facility],[address] [place], [place] [id number] Potassium [Moles/Vol] 3.2 mmol/L Low 3.5 - 5.1 [facility] Comment on above: Performed By: #### 2 10455 #### [facility],[address] [place], [place] [id number] Protein [Mass/Vol] 7.8 g/dL Normal 6.4 - 8.2 [facility] Comment on above: Performed By: #### 2 72445 #### [facility],[address] [place] [address] Sodium [Moles/Vol] 133 mmol/L Low 136 - 145 [facility] Comment on above: Performed By: #### 2 99054 #### [facility],[address] [place], [place] [id number] Urea nitrogen [Mass/Vol] 8 mg/dL Normal 7 - 18 [facility] Comment on above: Performed By: #### 2 92911 #### [facility],[address] [address] [place], [place] [id number] CULTURE BLOOD [LAYLA]on Microscopic examination of blood, culture CULTURE BLOOD [LAYLA] _BLOOD CULTURE_ GO TO CPSI REPORTS AND ATTACHMENTS FOR SCANNED REPORT 10/09/[email or web address] ETE Normal [facility] Comment on above: Performed By: #### 2 [id number] #### [facility],[address] [place], [place] [id number] Microscopic examination of blood, culture CULTURE BLOOD [LAYLA] _BLOOD CULTURE_ GO TO CPSI REPORTS AND ATTACHMENTS FOR SCANNED REPORT 10/09/[email or web address] ETE Normal [facility] Comment on above: Performed By: #### 2 [id number] ####[facility],[address] [facility] [address] ED MED ADMINISTRATION DETAIL on 10-01-2024 ED MED ADMINISTRATION DETAIL [employer] - LORA JONES : 1990, , Medication Administration Record [address] [address] [id number] 10/01/2024 Patient: LORA JONES Sex: Female : 1990 Age: 34y MEASUREMENTS: Wt: 89.8 kg, Ht/Ken: 62.0 in, BMI: 36.21 ALLERGIES: No known drug allergies Medication Ordered Medication Administration Date/Time IV NS 0.9 % 1000 14:10/01 IV NS 0.9 % 1000 mL started in bag#1 1000 mL at Started mL at 999 mL/hr 999 mL/hr via Site# 1. Allergies verified and confirmed 5 rights. IV 14:10/01/2024 (NOW x1) patency established. IV site checked: no pain, redness, or swelling. Alex Gilbert R.N. IV flushed thoroughly pre-medication administration. Information Stopped reviewed with patient. Verbalizes understanding. - 14:03 Alex 17:22 10/01/2024 Maylin Gilbert R.N. Scanned 17:10/01 Medication Discontinued: bag #1. Total amount infused: 1000 mL. IV patency established. IV site checked: no pain, redness, or swelling. IV flushed thoroughly post-medication administration. - 17:22 Alex Gilbert R.N. Acetaminophen 14:10/01 Acetaminophen (Tylenol) PO 650 mg given. Allergies Given (Tylenol) PO 650 verified and confirmed 5 rights. Information reviewed with patient. 14:10/01/2024 mg (NOW x1) Verbalizes understanding. - 14:03 Maylin Beckford R.N. 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 Allergies verified and confirmed 5 Alex Gilbert R.N. 3.375 g diluted in rights. IV patency established. IV site checked: no pain, redness, or Stopped sodium chloride swelling. IV flushed thoroughly pre-medication administration. 15:27 10/01/2024 IVPB 0.9 % Information reviewed with patient. Verbalizes understanding. - Alex Gilbert R.N. Minibag+ 50 mL at 14:04 Alex Gilbert R.N. Scanned 100 mL/hr (NOW x1) 15:27 10/01 Medication Discontinued: IV completed. Total amount infused: 1000 mL. IV patency established. IV site checked: no pain, redness, or swelling. IV flushed thoroughly post-medication administration. - 15:27 Alex Gilbert R.N. 2 of 2 Normal [facility] ED NURSES CLINICAL NOTEon ED NURSES CLINICAL NOTE Nurse Narrative - LORA JONES, : 1990, , [place] [address] [id number] 10/01/2024 13:37:00 Patient: LORA JONES Sex: Female : 1990 Age: 34y Disposition: Transfer to [facility] Disposition Decision Time: 17:06 10/01/2024 Departure Time: 17:31 10/01/2024 TRIAGE Arrived by private vehicle. Historian: (patient). Accompanied by family. Primary physician (Vidal Bran). Triage time: 13:33 10/01/2024. Acuity: LEVEL 2. Chief Complaint: FEVER. Onset. (Wednesday). ( abd/ back pain, headache, weakness). SEPSIS SCREEN: POSITIVE. SIRS criteria positive: temperature greater than 38 degrees C (100.4 degrees F) and heart rate greater than 90. Possible sources of infection. -- 13:41 10/01/24 ARELIS Oreilly R.N. 13:39 10/01/24. BP: 128/82 MAP: 97. HR: 130. RR: 19. O2 saturation: 98% Temperature: 103 F. Pain level now 09/24. -- 13:40 10/01/24 ARELIS Oreilly R.N. Measurements: 13:40 10/01/24 Wt: 89.8 kg, Ht/Ken: 62.0 in, BMI: 36.21 -- 13:40 10/01/24 ARELIS Oreilly R.N. Medications: no known home medications -- 13:39 10/01/24 ARELIS Oreilly R.N. 13:33 10/01/24. Preferred Pharmacy: ([facility]). -- 13:41 10/01/24 ARELIS Oreilly R.N. 1 of 5 Nurse Narrative - LORA JONES, : 1990, , Allergies: no known drug allergies -- 13:39 10/01/24 ARELIS Oreilly R.N. Home Medications/Allergy Information Source: patient -- 13:39 10/01/24 ARELIS Oreilly R.N. Problems: Pt self-caths -- 13:39 10/01/24 ARELIS Oreilly R.N. Surgeries: bladder-ureter reconstruction. (used the appendix in the navel to create a ureter to the bladder and pt self-caths) -- 13:39 10/01/24 ARELIS Oreilly R.N. Appendectomy -- 13:39 10/01/24 ARELIS Oreilly R.N. History 13:33 10/01/24. PAST MEDICAL HX: Immunizations: up-to-date. LNMP: (1 weeks ago). SOCIAL HX: Never smoker. No alcohol use [...] assessment completed. No risk factors identified. -- 13:41 10/01/24 EDT Kimmy Oreilly R.N. 2 of 5 Nurse Narrative - KARENCINTHYALORA, : 1990, , Interventions 13:33 10/01/24. Advanced care plan discussed with patient (Full code). -- 13:41 10/01/24 CHERIT Kimmy Oreilly R.N. PHYSICAL ASSESSMENT 13:49 10/01/24. Ambulatory to room. ( pt ambulated to ER room 5 with complaints of a headache. pt states that she self caths through her belly button and on wednesday she started with abd pain and pain when cathing. that subsided but now she has a bad headache pt is hot, flushed, tachycardic.). GENERAL / NEURO / PSYCH: Alert. Oriented X 4. Appears in no acute distress. HEENT: Pupils equal, round and reactive to light. Mucous membranes are pink. RESPIRATORY: Respirations not labored. Breath sounds within normal limits. CVS: Capillary refill less than 2 seconds. Pulses within normal limits. GI / : Abdomen soft and normal bowel sounds. Abdominal tenderness. SKIN: Skin is dry. Hot skin. -- 13:49 10/01/24 EDT Alex Gilbert R.N. NURSING PROGRESS NOTES 13:40 10/01/24. Site #1 started in the right antecubital space with an 18g needle with aseptic technique and good blood return; 1 attempt. Blood drawn: rainbow set and nina tube(s) and cultures x 1. Saline lock flushed with 5 mL saline. -- 13:42 10/01/24 ARELIS Oreilly R.N. 13:51 10/01/24. BP: 109/65 MAP: 79 mmHg. HR: 116 bpm. -- 14:08 10/01/24 EDT Alex Gilbert R.N. 13:51 10/01/24. HR: 117 bpm. O2 saturation: 97%. -- 14:10/01/24 EDT Alex Gilbert R.N. 14:03 10/01/24. Acetaminophen (Tylenol) PO 650 mg given. Allergies verified and confirmed 5 rights. Information reviewed with patient. Verbalizes understanding. -- 14:10/01/24 EDT Alex Gilbert R.N. 14:03 10/01/24. IV NS 0.9 % 1000 mL started in bag#1 1000 mL at 999 mL/hr via Site# 1. Allergies verified and confirmed 5 rights. IV patency established. IV site checked: no pain, redness, or swelling. IV flushed thoroughly pre-medication administration. Information reviewed with patient. Verbalizes understanding. -- 14:10/01/24 EDT Alex iGlbert R.N. 14:10/01/24. Piperacillin-Tazobac (Zosyn) IVPB 3.375gm/50ml NS 3.37 (more content not included)... Normal [facility] ED ORDER SHEET (CPOE ONLY)on 10-01-2024 ED ORDER SHEET (CPOE ONLY) Order Sheet - LORA JONES, : 1990, , Order Sheet [address] [address] [id number] 10/01/2024 Patient: LORA JONES Sex: Female : 1990 Age: 34y MEASUREMENTS: Wt: 89.8 kg, Ht/Ken: 62.0 in, BMI: 36.21 ALLERGIES: No known drug allergies MEDICATION/IV/DRIP/FLUI D ORDERS Order Description Priority Entered Acknowledged Completed IV NS 0.9 %1000 mL at 999 13:54 10/01/2024 13:55 14:03 mL/hr (NOW x1) Lester Gallardo M.D. 10/01/2024 10/01/2024 Alex Beckford R.N. R.N. Acetaminophen (Tylenol) 13:54 10/01/2024 13:55 14:03 PO650 mg (NOW x1) Lester Gallardo M.D. 10/01/2024 10/01/2024 Alex Beckford R.N. R.N. Piperacillin-Tazobac (Zosyn) 13:55 10/01/2024 13:56 14:04 IVPB 3.375gm/50ml NS3.375 g Lester Gallardo M.D. 10/01/2024 10/01/2024 diluted in sodium chloride IVPB Alex Beckford, 0.9 % Minibag+ 50 mL at 100 R.N. R.N. mL/hr (NOW x1) LAB ORDERS Order Description Priority Entered Acknowledged Collected Completed CBC w Diff Stat Stat 13:54 10/01/2024 13:55 10/01/2024 13:55 10/01/2024 Christie Horne Jamie Burgett, 1 of 2 Order Sheet - KARENLORA GRIFFIN, : 1990, , R.N. R.N. CMP Stat Stat 13:54 10/01/2024 13:55 10/01/2024 13:55 10/01/2024 Christie Horne Jamie Burgett R.N. R.N. Blood Culture Stat 13:54 10/01/2024 13:55 10/01/2024 13:55 10/01/2024 [Layla] # 1 Stat Christie Horne Jamie Burgett, R.N. R.N. Blood Culture Stat 13:54 10/01/2024 13:55 10/01/2024 13:55 10/01/2024 [Layla] # 2 Stat Christie Horne Jamie Burgett, R.N. R.N. Lactate, Serum Stat Stat 13:54 10/01/2024 13:55 10/01/2024 13:55 10/01/2024 Christie Horne Jamie Burgett, R.N. RBreann Urinalysis Stat Stat 13:54 10/01/2024 13:55 10/01/2024 14:21 10/01/2024 Christie Horne Jamie Burgett, R.N. R.N. CRP Stat Stat 13:54 10/01/2024 13:55 10/01/2024 13:55 10/01/2024 Christie Horne Jamie Burgett, R.N. RBreann Urine Culture [CCL] Stat Stat 13:54 10/01/2024 13:55 10/01/2024 14:21 10/01/2024 Christie Horne Jamie Burgett, R.NNiya RNiyaNNiya DIAGNOSTIC STUDY ORDERS Order Description Priority Entered Acknowledged Completed STAFF ORDERS Order Description Priority Entered Acknowledged Collected Completed [Electronically signed by Lester Gallardo M.D. (10/01/2024 20:03 EDT)] 2 of 2 Normal [facility] ED PHYSICIAN CLINICAL REPORT on 10-01-2024 ED PHYSICIAN CLINICAL REPORT Narrative - LORA JONES, : 1990, , Physician Clinical Narrative [address] [address] [id number] 10/01/2024 13:37:00 Patient: LORA JONES Sex: Female : 1990 Age: 34y Disposition: Transfer to [facility] Disposition Decision Time: 17:06 10/01/2024 Departure Time: 17:31 10/01/2024 Measurements Wt: 89.8 kg, Ht/Ken: 62.0 in, BMI: 36.21 Initial Vital Sign Measured Time BP MAP HR RR O2Sat ETCO2 Temp Pain GCS RTS 13:39 10/01/2024 128/82 97 130 19 98% 103.0 F 8 Time Seen: 13:44 10/01/2024. Arrived- By private vehicle. Historian- patient. HISTORY OF PRESENT ILLNESS Chief Complaint: FEVER, CHILLS and NOT FEELING WELL. This started about 4 ago and is still present and worsening. The patient has had measured fever. The patient has had loss of appetite, muscle aches, fatigue and decreased oral intake and urine output. No chest pain, dyspnea, cough, diarrhea or altered mental status. No skin breakdown noted or rash. Additional history - The patient has a recent hospitalization. (about 2 weeks ago). Similar symptoms previously. Patient has had similar symptoms once. Recent medical care: The patient was seen recently and hospitalized. 1 of 10 Narrative - LORA JONES DOB: 1990, , REVIEW OF SYSTEMS RESPIRATORY: No sputum production. GI: The patient has had nausea. No constipation, black stools, flank pain or vomiting. NEUROLOGICAL: The patient has had a headache. CONSTITUTIONAL: The patient has had anorexia. No weight loss. NOSE: No sinus pain. THROAT: No sore throat. SKIN: No tick bite. ENDO/HEME/LYMPH: No easy bruising or enlarged lymph nodes. MUSCULOSKELETAL: No neck pain. : No difficulty with urination. CVS: No palpitations or calf pain. 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 She had multiple UTIs as a child. Had surgery when she was 11 years old having a suprapubic catheter placed. She had no further infections and has done very well since then until couple of weeks ago when she was admitted for UTI. Pt self-caths Surgeries: Appendectomy bladder-ureter reconstruction: (used the appendix in the navel to create a ureter to the bladder and pt self-caths) Medications: no known home medications Allergies: no known drug allergies Home Medications/Allergy Information Source: patient - Kimmy Maylin Oreilly, 10/01/2024 13:39 EDT SOCIAL HISTORY Does not use tobacco. No alcohol use. Resides in a house. ADDITIONAL NOTES The nursing notes have been reviewed. 2 of 10 Narrative - LORA JONES, : 1990, , PHYSICAL EXAM Vital Signs: Have been reviewed. Appearance: Alert. Patient in mild distress. ENT: Nose normal. Pharynx normal. Uvula midline. Neck: Normal inspection. Neck supple. CVS: Normal heart rate and rhythm. Heart sounds normal. Respiratory: No respiratory distress. Breath sounds normal. Abdomen: Soft and nontender. No mass. Skin: Skin warm and dry. Normal skin color. No rash. Normal skin turgor. (Skin very warm and dry no rashes). Neuro: Oriented X 3. No motor deficit. No sensory deficit. LABS, X-RAYS, AND EKG Laboratory Tests: CBC + DIFF Final KENNY: 10/01/2024 13:43:00 EDT MsgRcvd: 10/01/2024 14:07 EDT Lab Test Result Reference Status Received 10/01/2024 14:07 CBC + DIFF Final EDT CBC-COMPLETE BLOOD COUNT 11.4 x 10/UL 10/01/2024 14:07 WBC 4.5 - 10.8 Final Above high normal EDT 10/01/2024 14:07 RBC 4.47 x 10/UL 4.10 - 5.30 Final EDT 10/01/2024 14:07 HEMOGLOBIN 14.7 g/dl 12.0 - 16.0 Final EDT 10/01/2024 14:07 HEMATOCRIT 41.1 % 34.0 - 46.0 Final EDT 3 of 10 [facility] - LORA JONES, : 1990, , 10/01/2024 14:07 MCV 92 fl 80 - 99 Final EDT 10/01/2024 14:07 MCH 33 pg 27 - 33 Final EDT 10/01/2024 14:07 MCHC 36 X10 3 32 - 36 Final EDT 10/01/2024 14:07 RDW/CV 12.3 % 12.0 - 15.6 Final EDT 10/01/2024 14:07 PLATELET 177 x10/UL 150 - 450 Final EDT 10/01/2024 14:07 MPV 8.5 fl 6.6 - 10.5 Final EDT AUTOMATED DIFFERENTIAL 82.4 % 10/01/2024 14:07 NEUT % 46.0 - 76.0 Final Above high normal EDT 5.6 % 10/01/2024 14:07 LYMPH % 20.0 - 45.0 Final Below low normal EDT 11.3 % 10/01/2024 14:07 MONOS % 0.0 - 10.0 Final Above high normal EDT 10/01/2024 14:07 EO % 0.7 % 0.0 - 7.0 Final EDT 10/01/2024 14:07 BASO % 0.1 % 0.0 - 2.0 Final EDT 0.64 x10/UL 10/01/2024 14:07 Lymph # 0.80 - 2.80 Final Below low normal EDT 9.37 x10/UL 10/01/2024 14:07 Neut # 1.50 - 7.10 Final Above high normal EDT 4 of 10 [facility] - LORA JONES, : 1990, Acc (more content not included)... Normal [facility] ED SUPER BILLon 10-01-2024 ED SUPER BILL [facility] - KAREN LORA, : 1990, , [address] [address] [id number] 10/01/2024 Patient: LORA JONES Sex: Female : 1990 Age: 34y Facility Professional Category Item Description Code Code Quantity Fee Total Drugs Normal Saline 365219 2 $0.00 $0.00 1000cc (601001) Nurse/E/M EMERGENCY 337788 1 $0.00 $0.00 DEPT VISIT HIGH SEVERITYFUNCJ (53414-95) Nurse/IV/IM/Infusions Drip/IVPB initial 564820 1 $0.00 $0.00 (60675) Nurse/IV/IM/Infusions Hydration 663228 2 $0.00 $0.00 additional hour (01493) Grand $0.00 Total Providers Lester Gallardo M.D. Chief Complaint FEVER, CHILLS and NOT FEELING WELL. 1 of 2 [facility] LORA JONES, : 1990, , Principal Diagnosis Acute fever. Acute urinary tract infection with cystitis and pyelonephritis. No hematuria. ICD-10 Codes R50.9: Fever, unspecified N10: Acute pyelonephritis N12: Tubulo-interstitial nephritis, not specified as acute or chronic N30.90: Cystitis, unspecified without hematuria 2 of 2 Normal [facility] ED VISIT SUMMARYon ED VISIT SUMMARY Visit Overview - LORA JONES, : 1990, , [place] [address] [id number] 10/01/2024 Patient: LORA JONES Sex: Female : 1990 Age: 34y 10/01/2024 08:03 PM EDT ED Arrival:13:37 10/01/2024 EDT Status: Recent Travel:no Language:deu Adv Directive: Isolation Status: Ethnicity:N Fall Risk:no risk Infectious Disease Exposure:no Measurements:5'2 / 157.5 Self-Harm Status:risk Sepsis Screen:positive cm 198.0 lb / 89.8 kg Chief Complaint:FEVER, (abd/ back pain, headache, weakness), (Drake Yina), and (Wednesday ) ALLERGIES No Known Drug Allergies HOME MEDICATIONS None PAST MEDICAL HISTORY / PROBLEMS Immunizations: up-to-date 1 of 3 Visit Overview - LORA JONES, : 1990, , LNMP: (1 weeks ago) Pt self-caths PAST SURGICAL HISTORY Appendectomy bladder-ureter reconstruction. (used the appendix in the navel to create a ureter to the bladder and pt self-caths) SOCIAL HISTORY Smoking status: No Alcohol use: No Drug use: No ED COURSE MEDICATIONS GIVEN IN EMERGENCY DEPARTMENT 14:03 10/01/24 Acetaminophen (Tylenol) PO 650 mg 14:03 10/01/24 IV NS 0.9 % 1000 mL 999 mL/hr Piperacillin-Tazobac (Zosyn) IVPB 3.375gm/50ml NS 3.375 g diluted in sodium 14:03 10/01/24 chloride IVPB 0.9 % Minibag+ 50 mL 100 mL/hr IV SITE INFORMATION 13:40 10/01/24 Site #1 right AC, 18g. Saline lock. INTAKE OUTPUT REASSESMENT (most recent) 13:49 10/01/24. Ambulatory to room. ( pt ambulated to ER room 5 with complaints of a headache. pt states that she self caths through her belly button and on wednesday she started with abd pain and pain when cathing. that subsided but now she has a bad headache pt is hot, flushed, tachycardic.). GENERAL / NEURO / PSYCH: Alert. Oriented X 4. Appears in no acute distress. HEENT: Pupils equal, round and reactive to light. Mucous membranes are pink. RESPIRATORY: Respirations not labored. Breath sounds within normal limits. CVS: Capillary refill less than 2 seconds. Pulses within normal limits. GI / : Abdomen soft and normal bowel sounds. Abdominal tenderness. SKIN: Skin is dry. Hot skin. 2 of 3 Visit Overview - LORA JONES, : 1990, , VITAL SIGNS First Vitals Last Vitals Temp 13:39 10/01/24 103.0 F Temp 17:16 10/01/24 BP 13:39 10/01/24 128/82 BP 17:16 10/01/24 HR 13:39 10/01/24 130 HR 17:16 10/01/24 98 RR 13:39 10/01/24 19 RR 17:16 10/01/24 O2 Sat 13:39 10/01/24 98% O2 Sat 17:16 10/01/24 100% Pain 13:39 10/01/24 8 Pain 17:16 10/01/24 ETCO2 13:39 10/01/24 ETCO2 17:16 10/01/24 GCS 13:39 10/01/24 GCS 17:16 10/01/24 RTS 13:39 10/01/24 RTS 17:16 10/01/24 PROCEDURES NURSING INTERVENTIONS LABS / STUDIES LABS / STUDIES ORDERED Blood Culture [Layla] # 1 Blood Culture [Layla] # 2 CBC w Diff CMP CRP Lactate, Serum Urinalysis Urine Culture [CCL] CLINICAL IMPRESSION ACUTE FEVER ACUTE URINARY TRACT INFECTION WITH CYSTITIS AND PYELONEPHRITIS. NO HEMATURIA 3 of 3 Normal [facility] ED VITALS FLOW SHEETon 10-01 ED VITALS FLOW SHEET Vitals - LORA RODRIGUEZ, : 1990, , Vital Sign Flow Sheet [id number] [place] [address] [id number] 10/01/2024 Patient: LORA JONES Sex: Female : 1990 Age: 34y Measurements Wt: 89.8 kg, Ht/Ken: 62.0 in, BMI: 36.21 Measured Time BP MAP HR RR O2Sat ETCO2 Temp Pain GCS RTS 17:16 10/01/2024 98 100% 17:11 10/01/2024 102 100% 17:06 10/01/2024 103 100% 17:06 10/01/2024 111/71 81 101 17:01 10/01/2024 101 100% 16:56 10/01/2024 99 100% 16:51 10/01/2024 103 100% 16:51 10/01/2024 111/75 81 102 16:46 10/01/2024 103 99% 16:41 10/01/2024 108 93% 16:36 10/01/2024 101 96% 16:36 10/01/2024 116/70 81 102 16:31 10/01/2024 108 96% 16:26 10/01/2024 98 95% 16:21 10/01/2024 99 96% 1 of 3 Vitals - LORA JONES, : 1990, , Measured Time BP MAP HR RR O2Sat ETCO2 Temp Pain GCS RTS 16:21 10/01/2024 113/67 77 100 16:16 10/01/2024 100 96% 16:11 10/01/2024 102 96% 16:06 10/01/2024 103 97% 16:06 10/01/2024 112/65 76 102 16:01 10/01/2024 100 96% 15:56 10/01/2024 103 96% 15:51 10/01/2024 108 97% 15:51 10/01/2024 113/65 76 111 15:46 10/01/2024 102 95% 15:41 10/01/2024 103 94% 15:36 10/01/2024 106 94% 15:36 10/01/2024 109/63 74 104 15:31 10/01/2024 105 95% 15:26 10/01/2024 109 97% 15:21 10/01/2024 104 95% 15:21 10/01/2024 109/63 75 109 15:16 10/01/2024 104 94% 15:11 10/01/2024 104 94% 15:06 10/01/2024 104 95% 15:06 10/01/2024 109/61 73 104 15:01 10/01/2024 106 96% 14:56 10/01/2024 104 95% 14:51 10/01/2024 106 95% 14:51 10/01/2024 112/65 76 107 2 of 3 Vitals - KARENLORA, : 1990, , Measured Time BP MAP HR RR O2Sat ETCO2 Temp Pain GCS RTS 14:46 10/01/2024 108 96% 14:41 10/01/2024 109 96% 14:36 10/01/2024 113 96% 14:36 10/01/2024 109/67 75 111 14:31 10/01/2024 116 96% 14:26 10/01/2024 118 96% 14:21 10/01/2024 118 96% 14:21 10/01/2024 117/69 80 116 14:16 10/01/2024 116 98% 14:11 10/01/2024 119 98% 14:06 10/01/2024 121 98% 14:06 10/01/2024 123/77 88 119 14:01 10/01/2024 118 98% 13:56 10/01/2024 117 97% 13:51 10/01/2024 117 97% 13:51 10/01/2024 109/65 79 116 13:46 10/01/2024 124 97% 13:39 10/01/2024 128/82 97 130 19 98% 103.0 F 8 3 of 3 Normal [facility] H AND P Exam - [facility] 10-01-2024 H&P Exam - Hospitalist [facility] Medical Records Department [address] [place] [address] H P Exam - Hospitalist 10/01/24 1919 MR#: [id number] Acct: [id number] Name: LORA JONES Rep #: [id number] : 1990 34 From: Maggie Crook MD PCP: EDWIN Campoverde Status:ADM IN Location: [facility] [place] [facility] [id number] HPI - General General Date of Admission: 10/01/24 Date of Service: 10/01/24 Chief Complaint: Weakness, fever, concern for UTI HPI Narrative LORA JONES, is a 34-year-old female with history of bladder and ureter reconstruction in childhood with suprapubic catheter 11 years old now self caths through the stoma [facility] 10/01/2024 with weakness, lower abdominal and back pain. She had a white count of 11.4 and a temp of 103, heart rate initially 120s but improved to 90s after fluids. Was found to have UA consistent with UTI so she was given Zosyn. Lactic acid was within normal limits at outlying facility ([place] Of note she had recently been admitted to [place] 3 weeks ago for a E. coli UTI and was treated with Rocephin and subsequently cefdinir, she has been off of antibiotics for 2 weeks however this she developed the abdominal pain and back pain with intermittent fevers. Family preferred transfer to [place], patient accepted in transfer. Patient evaluated bedside when she arrived to the floor. She endorses she has little bit of a headache and has had this in the fevers off and on for the past couple of days, also reports she has had diarrhea since she was on antibiotics but said that this is improving and not worsening and was only offered information when specifically asked, does cath self through stoma routinely and has not changed anything or had any difficulty with this. Reports some suprapubic pain that she feels like goes to her back but not necessarily flank or side pain, otherwise just feels somewhat weak and fatigued [facility] Medical History UTI (urinary tract infection) Home Medications ???Medication ???Instructions ???Recorded ???Last Taken ???Type NK 10/01/24 Unknown History Allergy/AdvReac Type Severity Reaction Status Date / Time No Known Allergies Allergy Verified 10/01/24 20:11 Social History Smoking Status: Never smoker ROS ROS Narrative General: Has had some fevers and chills HENT: Intermittent headaches, denies stuffy nose, denies sore throat EYES: Denies changes in vision Resp: Denies cough, denies shortness of breath Cardiac: Denies chest pain GI: Poor p.o. intake, some lower abdominal pain symptoms to the back, sometimes diarrhea : Continues to self cath Extremity: Denies swelling MSK: Generalized weakness Neuro: Denies any numbness/tingling Heme: Denies any bleeding or bruising Skin: Denies rashes Psychiatric: No complaints voiced Vital Signs Vital Signs Vital Signs: 10/01/24 18:49 Temperature 98.5 F Temperature Source Oral Pulse Rate 99 Respiratory Rate 20 H Blood Pressure 122/76 H Blood Pressure Mean 91 Pulse Ox 107 Oxygen Delivery Method Room Air Physical Exam Narrative General: Alert, oriented, appears uncomfortable HEENT: Atraumatic, normocephalic Eyes: Anicteric, normal conjunctiva, extraocular movements grossly intact Neck: Supple Respiratory: Clear to auscultation bilaterally, normal respiratory effort Cardiovascular: Regular rate and rhythm GI: Soft, tender in lower to mid abdomen without any rebound, guarding, rigidity Extremities: No edema Musculoskeletal: Moving all extremities Neuro: No overt focal neurological deficits Skin: No rashes appreciated Psych: Cooperative Assessment Plan Assessment/Plan (1) Complicated UTI (urinary tract infection): PLAN: Plan # Recurrent complicated UTI - Patient self caths through stoma, had not had problems until recently - Urine culture obtained at outlying facility and is pending - Will continue Zosyn given patient recent hospitalized with IV antibiotics and unclear sensitivities - IV fluids - Supportive care - Patient is to establish with urology on an outpatient basis in the next couple of weeks - Can consider an inpatient urology consult this week if necessary however if patient improves significantly with antibiotics may just be able to follow on outpatient basis - Given this is patient's second UTI in 3 weeks is reasonable to get imaging, patient's creatinine 1.32 on outlying facility labs, we have no baseline it is unclear if this is an ALIDA or just slightly elevated at baseline especially given patient's reports of poor p.o. intake, will hydrate patient with IVF overnight and plan on CT scan in the a.m. #DVT ppx: SCDs Maggie Crook MD Time spent in the patient's overall evaluation, decision-making process, review of diagnostic data, ad (more content not included)... Normal [facility] LACTATEon 10-01-2024 Lactate [Moles/Vol] 1.3 mmol/L Normal 0.4 - 2.0 [facility] Comment on above: Performed By: #### 2 60236 #### [facility],[address] [place] [address] URINALYSISon 10-01-2024 Amorphous NONE Normal [facility] Comment on above: Performed By: #### 2 00529 #### [facility],[address] [place] [address] Bacteria 2+ Normal [facility] Comment on above: Performed By: #### 2 56237 #### [facility],[address] [place] [address] 39025 Bilirubin Ql (U) Negative Normal NORMAL: NEGATIVE [facility] Comment on above: Performed By: #### 2 65567 #### [facility],[address] [place], [place] [id number] Casts NONE Normal [facility] Comment on above: Performed By: #### 2 24636 #### [facility],[address] [place] [address] Clarity (U) sl.cloudy Normal NORMAL: CLEAR [facility] Comment on above: Performed By: #### 2 97917 #### [facility],[address] [place] [address] Color (U) yellow Normal NORMAL: YELLOW [facility] Comment on above: Performed By: #### 2 56924 #### [facility],[address] [place] [address] 99010 Crystals LM Nom (Urine sed) NONE Normal [facility] Comment on above: Performed By: #### 2 07313 #### [facility],[address] [place] [address] 34618 Epi Cells FEW Normal [facility] Comment on above: Performed By: #### 2 73891 #### [facility],[address] [place] [address] 08904 Glucose Ql (U) NORM Normal NORMAL: NORMAL [facility] Comment on above: Performed By: #### 2 88731 #### [facility],[address] [place] [address] 79223 Hemoglobin Ql (U) 250 Abnormal NORMAL: NEGATIVE [facility] Comment on above: Performed By: #### 2 69737 #### [facility],[address] [place] [address] 97958 Ketone Negative Normal NORMAL: NEGATIVE [facility] Comment on above: Performed By: #### 2 58878 #### [facility],[address] [place] [address] 09820 Leukocytes 500 Abnormal NORMAL: NEGATIVE [facility] Comment on above: Performed By: #### 2 75383 #### [facility],[address] [place] [address] 58321 Mucous NONE Normal [facility] Comment on above: Performed By: #### 2 77228 #### [facility],[address] [place] [address] 14404 Nitrite Ql (U) Negative Normal NORMAL: NEGATIVE [facility] Comment on above: Performed By: #### 2 94546 #### [facility],[address] [place] [address] 99587 pH (U) 8 [pH] Normal NORMAL: 5.0-8.0 [facility] Comment on above: Performed By: #### 2 18064 #### [facility],[address] [place] [address] 50159 Protein Ql (U) 100 Abnormal NORMAL: NEGATIVE [facility] Comment on above: Performed By: #### 2 97992 #### [facility],[address] [place] [address] Rbc 5-10 Normal 0-3/hpf [facility] Comment on above: Performed By: #### 2 83123 #### [facility],[address] [place] [address] Sp [place] 1.015 Normal NORMAL: 1.010-1.030 [facility] Comment on above: Performed By: #### 2 49708 #### [facility],[address] [place] [address] Specimen Type R Normal [facility] Comment on above: Performed By: #### 2 73536 #### [facility],[address] [place], [place] [id number] Urinalysis dipstick W Reflex Microscopic panel (U) SEE BELOW Normal [facility] Comment on above: Result Comment: MICR OSCOPIC Performed By: #### 2 78925 #### [facility],[address] [place] [address] 08018 Urobilinog NORM Normal NORMAL: NORMAL [facility] Comment on above: Performed By: #### 2 28386 #### [facility],[address] [place] [address] 20758 WBC (U) [#/Vol] /uL Normal 0-5/hpf [facility] Comment on above: Performed By: #### 2 42634 #### [facility],[address] [place] [address] 72199 Yeast NONE Normal [facility] Comment on above: Performed By: #### 2 02271 #### [facility],[address] [place] [address] 28483 CBC + DIFFon 09-11-2024 Baso # 0.01 x10EE3/UL Normal 0.00 - 0.10 [facility] Comment on above: Performed By: #### 2 12439 #### [facility],[address] [place] [address] 66340 Basophils/100 WBC (Bld) 0.1 % Normal 0.0 - 2.0 [facility] Comment on above: Performed By: #### 2 49221 #### [facility],[address] [place] [address] CBC + DIFF Normal [facility] Comment on above: Result Comment: CBC- COMPLETE BLOOD COUNT Performed By: #### 2 21351 #### [facility],[address] [place] [address] EO # 0.08 x10EE3/UL Normal 0.00 - 0.50 [facility] Comment on above: Performed By: #### 2 74210 #### [facility],[address] [place] [address] 14004 Eosinophils/100 WBC (Bld) 1.1 % Normal 0.0 - 7.0 [facility] Comment on above: Performed By: #### 2 59596 #### [facility],[address] [place], [place] [id number] Erythrocyte distribution width (RBC) [Ratio] 12.5 % Normal 12.0 - 15.6 [facility] Comment on above: Performed By: #### 2 90638 #### [facility],[address] [place], [place] [id number] Hematocrit (Bld) [Volume fraction] 41.3 % Normal 34.0 - 46.0 [facility] Comment on above: Performed By: #### 2 59015 #### [facility],[address] [place] [address] 58170 Hemoglobin (Bld) [Mass/Vol] 14.3 g/dL Normal 12.0 - 16.0 [facility] Comment on above: Performed By: #### 2 27764 #### [facility],[address] [place] [address] Lymph # 0.52 x10EE3/UL Low 0.80 - 2.80 [facility] Comment on above: Performed By: #### 2 52831 #### [facility],[address] [place] [address] Lymphocytes/100 WBC (Bld) 7.7 % Low 20.0 - 45.0 [facility] Comment on above: Performed By: #### 2 00365 #### [facility],[address] [place] [address] MANUAL DIFF N/A Normal [facility] Comment on above: Performed By: #### 2 95307 #### [facility],[address] [place] [address] MCH (RBC) [Entitic mass] 32 pg Normal 27 - 33 [facility] Comment on above: Performed By: #### 2 18895 #### [place] [address] MCHC 35 X10 3 Normal 32 - 36 [facility] Comment on above: Performed By: #### 2 20426 #### [facility],[address] [place] [address] MCV (RBC) [Entitic vol] 93 fL Normal 80 - 99 [facility] Comment on above: Performed By: #### 2 16252 #### [place] [address] [place] # 0.54 x10EE3/UL Normal 0.20 - 1.00 [facility] Comment on above: Performed By: #### 2 38951 #### [place] [address] MONOS % 8.0 % Normal 0.0 - 10.0 [facility] Comment on above: Performed By: #### 2 54387 #### [facility],[address] [place] [address] Morphology Aram (Bld) [Interp] N/A Normal [facility] Comment on above: Performed By: #### 2 24613 #### [facility],[address] [place] [address] Neut # 5.56 x10EE3/UL Normal 1.50 - 7.10 [facility] Comment on above: Performed By: #### 2 36208 #### [place] [address] Neutrophils/100 WBC (Bld) 83.1 % High 46.0 - 76.0 [facility] Comment on above: Performed By: #### 2 82495 #### [place] [address] PLATELET 152 x10EE3/UL Normal 150 - 450 [facility] Comment on above: Performed By: #### 2 81622 #### [place] [address] Platelet mean volume (Bld) [Entitic vol] 8.0 fL Normal 6.6 - 10.5 [facility] Comment on above: Result Comment: AUTO MATED DIFFERENTIAL Performed By: #### 2 37470 #### [place] [id number] RBC 4.45 x 10EE6/UL Normal 4.10 - 5.30 [facility] Comment on above: Performed By: #### 2 83572 #### [place] [address] WBC 6.7 x 10EE3/UL Normal 4.5 - 10.8 [facility] Comment on above: Performed By: #### 2 85425 #### [address],[place] [address] BMP with eGFRon 09-10-2024 AGE 34 years Normal [facility] Comment on above: Performed By: #### 2 90010 #### [facility],[address] [place] [address] 50687 Anion gap [Moles/Vol] 14 mmol/L Normal 10 - 20 [facility] Comment on above: Performed By: #### 2 25031 #### [facility],[address] [place] [address] 89332 BMP with eGFR Normal [facility] Comment on above: Result Comment: BASI C METABOLIC PANEL Performed By: #### 2 01086 #### [facility],[address] [place] [address] 55615 Calcium [Mass/Vol] 7.7 mg/dL Low 8.5 - 10.1 [facility] Comment on above: Result Comment: TEST REPEATED Performed By: #### 2 30594 #### [facility],[address] [place] [address] 91774 Chloride [Moles/Vol] 109 mmol/L High 98 - 107 [facility] Comment on above: Performed By: #### 2 04310 #### [facility],[address] [place] [address] 87035 CO2 [Moles/Vol] 23.4 mmol/L Normal 21.0 - 32.0 [facility] Comment on above: Performed By: #### 2 57187 #### [facility],[address] [place] [address] 20850 Creatinine [Mass/Vol] 0.92 mg/dL Normal 0.55 - 1.02 [facility] Comment on above: Performed By: #### 2 27709 #### [facility],[address] [place] [address] 92674 GFR/1.73 sq M.predicted among non-blacks MDRD (S/P/Bld) [Vol rate/Area] mL/min/{1.73_m2} Normal 60 - 999 [facility] Comment on above: Performed By: #### 2 51852 #### [facility],[address] [place] [address] 94656 Result Comment: ACCO RDING TO THE NATIONAL KIDNEY DISEASE EDUCATION PROGRAM(NKDE), A NORMAL eGFR IS A VALUE GREATER THAN OR EQUAL TO 60 ML/MIN/1.73 SQ METERS. CHRONIC KIDNEY DISEASE: <60mL/MIN/1.73 SQ METERS KIDNEY FAILURE: <15mL/MIN/1.73 SQ METERS THIS TEST SHOULD ONLY BE USED FOR PATIENTS 18 YEARS OF AGE AND OLDER. Glucose [Mass/Vol] 115 mg/dL High 74 - 106 [facility] Comment on above: Performed By: #### 2 82140 #### [facility],[address] [place] [address] 16857 Potassium [Moles/Vol] 3.7 mmol/L Normal 3.5 - 5.1 [facility] Comment on above: Performed By: #### 2 40950 #### [facility],[address] [place] [address] 05446 Sodium [Moles/Vol] 143 mmol/L Normal 136 - 145 [facility] Comment on above: Performed By: #### 2 47964 #### [facility],[address] [place] [address] 06609 Urea nitrogen [Mass/Vol] 10 mg/dL Normal 7 - 18 [facility] Comment on above: Performed By: #### 2 31488 #### [facility],[address] [place] [address] 65628 CBC + DIFFon 09-10-2024 Baso # 0.01 x10EE3/UL Normal 0.00 - 0.10 [facility] Comment on above: Performed By: #### 2 48542 #### [facility],[address] [place] [address] 96620 Basophils/100 WBC (Bld) 0.1 % Normal 0.0 - 2.0 [facility] Comment on above: Performed By: #### 2 45906 #### [facility],[address] [place] [address] CBC + DIFF Normal [facility] Comment on above: Result Comment: CBC- COMPLETE BLOOD COUNT Performed By: #### 2 20206 #### [facility],[address] [place] [address] EO # 0.09 x10EE3/UL Normal 0.00 - 0.50 [facility] Comment on above: Performed By: #### 2 06168 #### [facility],[address] [place] [address] Eosinophils/100 WBC (Bld) 0.6 % Normal 0.0 - 7.0 [facility] Comment on above: Performed By: #### 2 76919 #### [place] [address] Erythrocyte distribution width (RBC) [Ratio] 11.9 % Low 12.0 - 15.6 [facility] Comment on above: Performed By: #### 2 47054 #### [facility],[address] [place] [address] Hematocrit (Bld) [Volume fraction] 35.9 % Normal 34.0 - 46.0 [facility] Comment on above: Performed By: #### 2 06753 #### [facility],[address] [place] [address] Hemoglobin (Bld) [Mass/Vol] 12.8 g/dL Normal 12.0 - 16.0 [facility] Comment on above: Result Comment: RPT FOR DELTA CHECK Performed By: #### 2 86696 #### [place] [address] Lymph # 0.72 x10EE3/UL Low 0.80 - 2.80 [facility] Comment on above: Performed By: #### 2 73458 #### [facility],[address] [place] [address] Lymphocytes/100 WBC (Bld) 4.9 % Low 20.0 - 45.0 [facility] Comment on above: Performed By: #### 2 42775 #### [facility],[address] [place] [address] MANUAL DIFF N/A Normal [facility] Comment on above: Performed By: #### 2 83318 #### [facility],[address] [place] [address] MCH (RBC) [Entitic mass] 33 pg Normal 27 - 33 [facility] Comment on above: Performed By: #### 2 63027 #### [place] [address] MCHC 36 X10 3 Normal 32 - 36 [facility] Comment on above: Performed By: #### 2 99972 #### [facility],[address] [place] [address] MCV (RBC) [Entitic vol] 92 fL Normal 80 - 99 [facility] Comment on above: Performed By: #### 2 43034 #### [facility],[address] [place] [address] [place] # 1.05 x10EE3/UL High 0.20 - 1.00 [facility] Comment on above: Performed By: #### 2 88966 #### [facility],[address] [place] [address] MONOS % 7.3 % Normal 0.0 - 10.0 [facility] Comment on above: Performed By: #### 2 62792 #### [facility],[address] [place] [address] Morphology Aram (Bld) [Interp] N/A Normal [facility] Comment on above: Performed By: #### 2 74344 #### [facility],[address] [place] [address] Neut # 12.63 x10EE3/UL High 1.50 - 7.10 [facility] Comment on above: Performed By: #### 2 40487 #### [facility],[address] [place] [address] 84301 Neutrophils/100 WBC (Bld) 87.1 % High 46.0 - 76.0 [facility] Comment on above: Performed By: #### 2 84017 #### [facility],[address] [place] [address] 74619 PLATELET 135 x10EE3/UL Low 150 - 450 [facility] Comment on above: Performed By: #### 2 81192 #### [facility],[address] [place] [address] 90168 Platelet mean volume (Bld) [Entitic vol] 7.9 fL Normal 6.6 - 10.5 [facility] Comment on above: Result Comment: AUTO MATED DIFFERENTIAL Performed By: #### 2 22811 #### [facility],[address] [place] [address] 51018 RBC 3.91 x 10EE6/UL Low 4.10 - 5.30 [facility] Comment on above: Performed By: #### 2 30776 #### [facility],[address] [place] [address] 11034 WBC 14.5 x 10EE3/UL High 4.5 - 10.8 [facility] Comment on above: Performed By: #### 2 34231 #### [facility],[address] [place] [address] 53756 ED MED ADMINISTRATION DETAIL on 09-10-2024 ED MED ADMINISTRATION DETAIL [employer] [place] [address] [phone] 09/09/2024 Patient: LORA JONES Sex: Female : 1990 Age: 34y MEASUREMENTS: Wt: 95.3 kg, Ht/Ken: 62.0 in, BMI: 38.41 ALLERGIES: No known drug allergies Medication Ordered Medication Administration Date/Time IV NS 0.9 % 1000 18:09/09 IV NS 0.9 % 1000 mL started in bag#1 1000 mL at Started mL at 500 mL/hr 500 mL/hr via Site# 1. Allergies verified and confirmed 5 rights. Via 18:09/09/2024 (NOW x1) IV pump. IV patency established. IV site checked: no pain, redness, No Moreau R.N. or swelling. IV flushed thoroughly pre-medication administration. Stopped Information reviewed with patient and parent including reason for 20:45 09/09/2024 taking this medication. - 19:00 Maylin Bautista R.N. Scanned 20:09/09 Medication Discontinued: bag #1 infused. Total amount [...] understanding. Medication Wastage: 15 mg wasted. - 19:54 Cathy Rubio R.N. 1 of 3 [employer] Medication Ordered Medication Administration Date/Time CefTRIAXone 19:09/09 [...] redness, or swelling. IV flushed thoroughly pre-medication 20:30 09/09/2024 Minibag+ 50 mL at administration. Information reviewed with patient including reason Cathy Rubio R.N. 100 mL/hr (NOW x1) for taking this medication, signs of allergic reaction and precautions. Scanned Verbalizes understanding. - 19:59 Cathy Rubio R.N. 20:30 09/09 Medication Discontinued: IV infused. Total amount infused: 50 mL. IV patency established. IV site checked: no pain, redness, or swelling. IV flushed thoroughly post-medication administration. - 20:55 Cathy Rubio R.N. IV NS 0.9 % 1000 20:56 09/09 IV NS 0.9 % 1000 mL started in bag#2 1000 mL at Started mL at 500 mL/hr 500 mL/hr via Site# 1. Allergies verified and confirmed 5 rights. Via 20:56 09/09/2024 (NOW x1) dial-a-flow. IV patency established. IV site checked: no pain, Cathy Rubio R.N. redness, or swelling. IV flushed thoroughly pre-medication Stopped administration. Information reviewed with patient including reason 21:03 09/09/2024 for taking this medication, signs of allergic reaction and precautions. Cathy Rubio R.N. Verbalizes understanding. - 20:57 Cathy Rubio R.N. Scanned 21:09/09 Medication Discontinued: bag #2 infused. Total amount infused: 1000 mL. IV patency established. IV site checked: no pain, redness, or swelling. IV flushed thoroughly post-medication administration. - 22:03 Cathy Rubio R.N. 2 of 3 [employer] Medication Ordered Medication Administration Date/Time IV NS [...] Rubio R.N. Verbalizes understanding. - 22:03 Cathy Rubio R.N. Scanned 23:47 09/09 Medication Discontinued: bag #3 infused. Total amount infused: 1000 mL. IV patency established. IV site checked: no pain, redness, or swelling. IV flushed thoroughly post-medication administration. - 00:02 Cathy Rubio R.N. Acetaminophen 22:09/09 Acetaminophen (Tylenol) PO 650 mg given. Allergies Given (Tylenol) PO 650 verified and confirmed 5 rights. Information reviewed with patient 22:09/09/2024 mg (NOW x1) including reason for taking this medication, signs of allergic reaction Cathy Rubio R.N. and precautions. Verbalizes understanding. - 22:29 Tawny Beebe R.N. 3 of 3 Normal [facility] ED NURSES CLINICAL NOTEon ED NURSES CLINICAL NOTE Nurse Narrative Nurse Clinical Narrative [address] [place] [address] [phone] 09/09/2024 16:25:00 Patient: LORA JONES Sex: Female : 1990 Age: 34y Disposition: Admit to [facility] Disposition Decision Time: 22:43 09/09/2024 Departure Time: 23:49 09/09/2024 TRIAGE Arrived by private vehicle. Historian: (patient). Accompanied by family. Primary physician (Nick). Triage time: 16:22 09/09/2024. Acuity: LEVEL 3. Chief Complaint: ABDOMINAL PAIN and DIARRHEA. This started last night. SEPSIS SCREEN: NEGATIVE. SIRS criteria negative: heart rate greater than 90. Possible sources of infection: UTI and acute abdomen. -- 16:31 09/09/24 EDT Kimmy Oreilly R.N. 16:09/09/24. BP: 144/84 MAP: 104. HR: 125. RR: 17. O2 saturation: 96% Temperature: 100.2 F. Pain level now 7/10. -- 16:09/09/24 EDT Kimmy Oreilly R.N. Measurements: 16:30 09/09/24 Wt: 95.3 kg, Ht/Ken: 62.0 in, BMI: 38.41 -- 16:30 09/09/24 ARELIS Oreilly R.N. Medications: no known home medications -- 16:27 09/09/24 ARELIS Oreilly R.N. 16:09/09/24. Preferred Pharmacy: ([facility]). -- 16:09/09/24 ARELIS Oreilly R.N. 1 of 5 Nurse Narrative Allergies: no known drug allergies -- 16:09/09/24 ARELIS Oreilly R.N. Home Medications/Allergy Information Source: patient -- 16:09/09/24 ARELIS Oreilly R.N. Problems: Pt self-caths -- 16:09/09/24 ARELIS Oreilly R.N. Surgeries: Appendectomy -- 16:09/09/24 ARELIS Oreilly R.N. bladder-ureter reconstruction. (used the appendix in the navel to create a ureter to the bladder and pt self-caths) -- 16:09/09/24 ARELIS Oreilly R.N. History 16:09/09/24. PAST MEDICAL HX: Immunizations: up-to-date. LNMP: (2-3 [...] assessment completed. No risk factors identified. -- 16:09/09/24 ARELIS Oreilly R.N. 2 of 5 Nurse Narrative Interventions 16:09/09/24. Advanced care plan discussed with patient (Full [...] and precautions. (more content not included)... Normal [facility] ED ORDER SHEET (CPOE ONLY)on 09-10-2024 ED ORDER SHEET (CPOE ONLY) Order Sheet Order Sheet [place] [id number] [facility] [place] [address] [id number] 09/09/2024 Patient: LORA JONES Sex: Female : 1990 Age: 34y MEASUREMENTS: Wt: 95.3 kg, Ht/Ken: 62.0 in, BMI: 38.41 ALLERGIES: No known drug allergies MEDICATION/IV/DRIP/FLUI D ORDERS Order Description Priority Entered Acknowledged Completed IV NS 0.9 %1000 mL at 500 17:46 09/09/2024 18:21 19:00 mL/hr (NOW x1) Yassine Salas, 09/09/2024 09/09/2024 D.ONo Loaiza R.N. R.N. KetorOLAC (Toradol) IVP15 mg 19:40 09/09/2024 19:48 19:54 (NOW x1) Yassine Salas, 09/09/2024 09/09/2024 JenniferOMaylin Natarajan R.N. CefTRIAXone (Rocephin) IVPB 19:43 09/09/2024 19:48 19:59 2gm/50ml NS2 g diluted in Yassine Salas, 09/09/2024 09/09/2024 sodium chloride IVPB 0.9 % Bisi.ONiya Rubio R.N. Cathy Rubio R.N. Minibag+ 50 mL at [...] Roxanna Mahmood D.O. 09/09/2024 09/09/2024 Maylin Beebe R.NNiya LAB ORDERS Order Description Priority Entered Acknowledged Collected Completed EKG - ED Stat Stat 16:51 09/09/2024 16:51 09/09/2024 16:51 09/09/2024 Kimmy Nick Shauna Ewing, R.N. RNiyaNNiya R.N. Verbal Order, Auth by: Yassine Salas D.O. Read back and verified CBC w Diff Stat Stat 17:46 09/09/2024 18:20 09/09/2024 18:23 09/09/2024 No Craig Natalie Yoder, D.O. R.NNiya R.N. CMP Stat Stat 17:46 09/09/2024 18:20 09/09/2024 18:23 09/09/2024 No Craig Natalie Yoder, D.O. R.N. R.N. Lipase Stat Stat 17:46 09/09/2024 18:20 09/09/2024 18:23 09/09/2024 No Craig No Moreau, 2 of 4 Order Sheet D.ONiya R.N. R.N. Urinalysis Stat Stat 17:46 09/09/2024 18:20 09/09/2024 18:23 09/09/2024 No Craig Natalie Yoder, D.O. R.N. R.N. Urine - HCG Stat 17:46 09/09/2024 18:21 09/09/2024 18:23 09/09/2024 Stat No Craig Natalie Yoder, D.O. R.N. R.N. Blood Culture Stat 19:43 09/09/2024 19:48 09/09/2024 19:49 09/09/2024 [Layla] # 1 Stat Cathy Craig R.N. Alivia King, R.N. D.O. Blood Culture Stat 19:43 09/09/2024 19:48 09/09/2024 20:01 09/09/2024 [Layla] # 2 Stat Cathy Craig R.N. Alivia King, R.N. D.O. Lactate, Serum Stat Stat 19:43 09/09/2024 19:48 09/09/2024 20:01 09/09/2024 Cathy Craig R.Maylin Osborn.O. Urine Culture [CCL] Stat Stat 19:43 09/09/2024 19:48 09/09/2024 19:49 09/09/2024 Cathy Craig R.NNiya Rubio RNiyaNNiya D.O. DIAGNOSTIC STUDY ORDERS Order Description Priority Entered Acknowledged Completed CT ABD/PEL w Cont Stat Stat 20:24 09/09/2024 20:31 20:54 Yassine Salas 09/09/2024 09/09/2024 D.O. Maylin Beebe R.N. 3 of 4 Order Sheet Reason for Study: Abdominal Pain STAFF ORDERS Order Description Priority Entered Acknowledged Collected Completed IV Saline Lock 17:46 09/09/2024 18:21 09/09/2024 18:23 09/09/2024 Yassine Salas, No Moreau, No Moreau D.O. RNiyaNNiya RNiyaN. [Electronically signed by Roxanna Mahmood D.O. (09/09/2024 22:24 EDT)] [Electronically signed by Roxanna Mahmood D.O. (09/09/2024 22:24 EDT)] [Electronically signed by Roxanna Mahmood D.O. (09/09/2024 22:24 EDT)] [Electronically signed by Roxanna Mahmood D.O. (09/10/2024 00:35 EDT)] [Electronically signed by Yassine Salas D.O. (09/10/2024 08:14 EDT)] 4 of 4 Normal [facility] ED PHYSICIAN CLINICAL REPORT on 09-10-2024 ED PHYSICIAN CLINICAL REPORT Narrative Physician Clinical Narrative [address] [address] [id number] 09/09/2024 16:25:00 Patient: LORA JONES Sex: Female : 1990 Age: 34y Disposition: Admit to [facility] Disposition Decision Time: 22:43 09/09/2024 Departure Time: [...] Home Medications/Allergy Information Source: patient - Kimmy OreillyMaylin, 09/09/2024 16:26 EDT SOCIAL HISTORY Never smoker. [...] left lower quadrant. Back: Normal inspection. 2 of 22 Narrative Skin: Skin warm and dry. Normal [...] Final Above high normal EDT 09/09/2024 18:07 Chester # 0.82 x10/UL 0.20 - 1.00 Final EDT 09/09/2024 18:07 EO # 0.09 x10/UL 0.00 - 0.50 Final EDT 09/09/2024 18:07 Baso # 0.02 x10/UL 0.00 - 0.10 Final EDT 09/09/2024 18:07 MANUAL DIFF N/A New Order EDT 4 of 22 Narrative Lab Test Result Reference [...] Final 18: (more content not included)... Normal [facility] ED SUPER BILLon 09-10-2024 ED SUPER BILL [facility] [address] [place] [address] [id number] 09/09/2024 Patient: LORA JONES Sex: Female : 1990 Age: 34y Facility Professional Category Item Description Code Code Quantity Fee Total Drugs Normal Saline 506046 3 $0.00 $0.00 1000cc (981660) Nurse/E/M EMERGENCY 074781 1 $0.00 $0.00 DEPT VISIT HIGH SEVERITYFUNCJ (21776-47) Nurse/IV/IM/Infusions Drip/IVPB initial 679713 1 $0.00 $0.00 (43546) Nurse/IV/IM/Infusions Hydration 863823 3 $0.00 $0.00 additional hour (64679) Nurse/IV/IM/Infusions IVP additional 424231 1 $0.00 $0.00 push (78508) Grand $0.00 Total Providers Shaniqua Craig D.O. 1 of 2 [facility] Chief Complaint ABDOMINAL PAIN. Principal Diagnosis Sepsis. No shock, altered mental status, disseminated intravascular coagulation or acute organ dysfunction. Acute pyelonephritis. ICD-10 Codes N10: Acute pyelonephritis A41.9: Sepsis, unspecified organism 2 of 2 [facility] ED VISIT SUMMARYon ED VISIT SUMMARY Visit Overview Visit Overview [address] [address] [id number] 09/09/2024 Patient: LORA JONES Sex: Female : 1990 Age: 34y [...] STUDIES LABS / STUDIES ORDERED Blood Culture [Layla] # 1 Blood Culture [Layla] # 2 CBC w Diff CMP CT ABD/PEL w Cont EKG - ED Lactate, Serum Lipase Urinalysis Urine Culture [CCL] Urine - HCG CLINICAL IMPRESSION ACUTE PYELONEPHRITIS SEPSIS. NO SHOCK, ALTERED MENTAL STATUS, DISSEMINATED INTRAVASCULAR COAGULATION OR ACUTE ORGAN DYSFUNCTION 3 of 3 Normal [facility] ED VITALS FLOW SHEETon 09-10 ED VITALS FLOW SHEET Vitals Vital Sign Flow Sheet [address] [address] [id number] 09/09/2024 Patient: LORA JONES Sex: Female : 1990 Age: 34y [...] 100.2 F 7 4 of 4 Normal [facility] Bacteria Ur Culton Bacteria identified Cx Nom (U) ORGANISM ID: 1 >=100,000 CFU/ml Escherichia coli ORGANISM ID: 1 (ESCHERICHIA COLI) ANTIBIOTIC INTERPRETATION VENUS STATUS REFERENCE RANGE Ampicillin R >=32 F Susceptible <=8 , Intermediate >8 , Resistant >16 Cefazolin S <=4 F Susceptible 0-16 , Intermediate <0 or >16 , Resistant >16 For uncomplicated urinary tract infections, cefazolin results can be used to predict susceptibility or resistance to cephalexin. Ceftriaxone S <=1 F Susceptible <=1 , Intermediate >1 , Resistant >=4 Cefepime S <=1 F Susceptible <=2 , Susceptible-Dose Dependent >2 , Resistant >=16 Ertapenem S <=0.5 F Susceptible <=0.5 , Intermediate >.5 , Resistant >1 Meropenem S <=0.25 F Susceptible <=1 , Intermediate >1 , Resistant >2 Ampicillin/Sulbact I 16 F Susceptible <=8 , Intermediate >8 , Resistant >16 Piperacillin/Tazobac S <=4 F Susceptible <16 , Susceptible-Dose Dependent >=16 , Resistant >=32 Gentamicin S <=1 F Susceptible <=2 , Intermediate >2 , Resistant >=8 Tobramycin S <=1 F Susceptible <4 , Intermediate >=4 , Resistant >=8 Trimeth sulfameth S <=20 F Susceptible <=40 , Resistant >40 Ciprofloxacin S <=0.25 F Susceptible <0.5 , Intermediate >=.5 , Resistant >=1 Nitrofurantoin S 32 F Susceptible <=32 , Intermediate >32 , Resistant >64 Abnormal [facility] Comment on above: Performed By: #### 6 30-4 #### [facility] CLIA [id number] [address] [place] [address] [place] CBC + DIFFon 09-09-2024 Baso # 0.02 x10EE3/UL Normal 0.00 - 0.10 [facility] Comment on above: Performed By: #### 2 58066 ####[address] [address] Basophils/100 WBC (Bld) 0.2 % Normal 0.0 - 2.0 [facility] Comment on above: Performed By: #### 2 66614 ####[address] [place] [address] CBC + DIFF Normal [facility] Comment on above: Result Comment: CBC- COMPLETE BLOOD COUNT Performed By: #### 2 31467 ####[facility],[address] [place] [address] EO # 0.09 x10EE3/UL Normal 0.00 - 0.50 [facility] Comment on above: Performed By: #### 2 41401 ####[facility],[address] [place] [address] Eosinophils/100 WBC (Bld) 0.6 % Normal 0.0 - 7.0 [facility] Comment on above: Performed By: #### 2 98732 ####[facility],[address] [place] [address] Erythrocyte distribution width (RBC) [Ratio] 12.2 % Normal 12.0 - 15.6 [facility] Comment on above: Performed By: #### 2 47003 ####[facility],[address] [place] [address] Hematocrit (Bld) [Volume fraction] 41.7 % Normal 34.0 - 46.0 [facility] Comment on above: Performed By: #### 2 34586 ####[facility],[address] [place] [address] Hemoglobin (Bld) [Mass/Vol] 14.9 g/dL Normal 12.0 - 16.0 [facility] Comment on above: Performed By: #### 2 13627 ####[facility],[address] [place], [place] [id number] Lymph # 0.46 x10EE3/UL Low 0.80 - 2.80 [facility] Comment on above: Performed By: #### 2 40335 ####[facility],[address] [place], [place] [address] Lymphocytes/100 WBC (Bld) 3.0 % Low 20.0 - 45.0 [facility] Comment on above: Performed By: #### 2 64055 ####[facility],[address] [place] [address] MANUAL DIFF N/A Normal [facility] Comment on above: Performed By: #### 2 10011 ####[facility],[address] [place] [address] MCH (RBC) [Entitic mass] 33 pg Normal 27 - 33 [facility] Comment on above: Performed By: #### 2 82037 ####[facility],[address] [place] [address] MCHC 36 X10 3 Normal 32 - 36 [facility] Comment on above: Performed By: #### 2 34366 ####[facility],[address] [place] [address] MCV (RBC) [Entitic vol] 91 fL Normal 80 - 99 [facility] Comment on above: Performed By: #### 2 06477 ####[facility],[address] [place] [address] [place] # 0.82 x10EE3/UL Normal 0.20 - 1.00 [facility] Comment on above: Performed By: #### 2 72691 ####[facility],[address] [place] [address] MONOS % 5.4 % Normal 0.0 - 10.0 [facility] Comment on above: Performed By: #### 2 56575 ####[facility],[address] [place] [address] Morphology Aram (Bld) [Interp] N/A Normal [facility] Comment on above: Performed By: #### 2 61531 ####[facility],[address] [place] [address] Neut # 13.89 x10EE3/UL High 1.50 - 7.10 [facility] Comment on above: Performed By: #### 2 75506 ####[facility],[address] [place] [address] Neutrophils/100 WBC (Bld) 90.8 % High 46.0 - 76.0 [facility] Comment on above: Performed By: #### 2 68037 ####[facility],[address] [place] [address] PLATELET 161 x10EE3/UL Normal 150 - 450 [facility] Comment on above: Performed By: #### 2 88150 ####[facility],[address] [place] [address] Platelet mean volume (Bld) [Entitic vol] 7.5 fL Normal 6.6 - 10.5 [facility] Comment on above: Result Comment: AUTO MATED DIFFERENTIAL Performed By: #### 2 72338 ####[facility],[address] [place] [address] RBC 4.58 x 10EE6/UL Normal 4.10 - 5.30 [facility] Comment on above: Performed By: #### 2 60011 ####[facility],[address] [place] [address] WBC 15.3 x 10EE3/UL High 4.5 - 10.8 [facility] Comment on above: Performed By: #### 2 86514 ####[facility],[address] [place] [address] CMP with eGFRon 09-09-2024 AGE 34 years Normal [facility] Comment on above: Performed By: #### 2 84367 #### [facility],[address] [place] [address] Albumin [Mass/Vol] 3.9 g/dL Normal 3.4 - 5.0 [facility] Comment on above: Performed By: #### 2 19794 #### [facility],[address] [place] [address] Albumin/Globulin [Mass ratio] 1.0 {ratio} Normal 0.9 - 1.6 [facility] Comment on above: Performed By: #### 2 06924 #### [facility],[address] [place] [address] ALK PHOS 56 U/L Normal 46 - 116 [facility] Comment on above: Performed By: #### 2 95937 #### [facility],[address] [place] [address] ALT [Catalytic activity/Vol] 63 U/L Normal 16 - 63 [facility] Comment on above: Performed By: #### 2 33782 #### [facility],[address] [place] [address] Anion gap [Moles/Vol] 17 mmol/L Normal 10 - 20 [facility] Comment on above: Performed By: #### 2 16702 #### [facility],[address] [place] [address] AST [Catalytic activity/Vol] 33 U/L Normal 13 - 39 [facility] Comment on above: Performed By: #### 2 93047 #### [facility],[address] [place] [address] B/C RATIO 13 ratio Normal 0 - 30 [facility] Comment on above: Performed By: #### 2 89826 #### [facility],[address] [place] [address] Bilirubin [Mass/Vol] 1.1 mg/dL High 0.2 - 1.0 [facility] Comment on above: Performed By: #### 2 46448 #### [facility],[address] [place] [address] Calcium [Mass/Vol] 9.1 mg/dL Normal 8.5 - 10.1 [facility] Comment on above: Performed By: #### 2 51724 #### [facility],[address] [place] [address] Chloride [Moles/Vol] 102 mmol/L Normal 98 - 107 [facility] Comment on above: Performed By: #### 2 70243 #### [facility],[address] [place] [address] CMP with eGFR Normal [facility] Comment on above: Result Comment: COMP REHENSIVE METABOLIC PANEL Performed By: #### 2 15008 #### [facility],[address] [place] [address] CO2 [Moles/Vol] 24.9 mmol/L Normal 21.0 - 32.0 [facility] Comment on above: Performed By: #### 2 61953 #### [facility],[address] [place] [address] Creatinine [Mass/Vol] 1.02 mg/dL Normal 0.55 - 1.02 [facility] Comment on above: Performed By: #### 2 89855 #### [facility],[address] [place] [address] GFR/1.73 sq M.predicted among non-blacks MDRD (S/P/Bld) [Vol rate/Area] mL/min/{1.73_m2} Normal 60 - 999 [facility] Comment on above: Performed By: #### 2 18131 #### [facility],[address] [place] [address] Result Comment: ACCO RDING TO THE NATIONAL KIDNEY DISEASE EDUCATION PROGRAM(NKDE), A NORMAL eGFR IS A VALUE GREATER THAN OR EQUAL TO 60 ML/MIN/1.73 SQ METERS. CHRONIC KIDNEY DISEASE: <60mL/MIN/1.73 SQ METERS KIDNEY FAILURE: <15mL/MIN/1.73 SQ METERS THIS TEST SHOULD ONLY BE USED FOR PATIENTS 18 YEARS OF AGE AND OLDER. Globulin (S) [Mass/Vol] 3.9 g/dL High 1.5 - 3.8 [facility] Comment on above: Performed By: #### 2 44039 #### [facility],[address] [place] [address] Glucose [Mass/Vol] 102 mg/dL Normal 74 - 106 [facility] Comment on above: Performed By: #### 2 50244 #### [facility],[address] [place] [address] Potassium [Moles/Vol] 3.6 mmol/L Normal 3.5 - 5.1 [facility] Comment on above: Performed By: #### 2 45978 #### [facility],[address] [place] [address] Protein [Mass/Vol] 7.8 g/dL Normal 6.4 - 8.2 [facility] Comment on above: Performed By: #### 2 03757 #### [facility],[address] [place] [address] Sodium [Moles/Vol] 140 mmol/L Normal 136 - 145 [facility] Comment on above: Performed By: #### 2 15496 #### [facility],[address] [place] [address] Urea nitrogen [Mass/Vol] 13 mg/dL Normal 7 - 18 [facility] Comment on above: Performed By: #### 2 87124 #### [facility],[address] [place], [place] [address] CULTURE BLOOD [LAYLA]on Microscopic examination of blood, culture CULTURE BLOOD [LAYLA] _BLOOD CULTURE_ GO TO CPSI REPORTS AND ATTACHMENTS FOR SCANNED REPORT 09/13/24.0858.DNP.COMPL ETE Normal [facility] Comment on above: Performed By: #### 2 90985 #### [facility],[address] [place], [place] [address] Microscopic examination of blood, culture CULTURE BLOOD [LAYLA] _BLOOD CULTURE_ GO TO CPSI REPORTS AND ATTACHMENTS FOR SCANNED REPORT 09/18/24.1042.DNP.COMPL ETE Normal [facility] Comment on above: Performed By: #### 2 76289 #### [facility],[address] [place] [address] LACTATEon 09-09-2024 Lactate [Moles/Vol] 0.9 mmol/L Normal 0.4 - 2.0 [facility] Comment on above: Result Comment: KENNY ECTED AT 1756, NO ORDER TILL 194 Performed By: #### 2 99155 #### [facility],[address] [place] [address] LIPASEon 09-09-2024 Lipase [Catalytic activity/Vol] 37.0 U/L Normal 15.0 - 78.0 [facility] Comment on above: Result Comment: *PLE ASE NOTE THAT RANGES FOR LIPASE HAVE CHANGED OF 02/12/23 DUE TO AN ASSAY UPDATE BY THE SUPERVISOR ASSEMBLY AND PACKING.THE NEW ASSAY RANGE IS 6-250 U/L, WITH A REFERENCE RANGE OF 16-77 U/L. Performed By: #### 2 48379 #### [place] [address] URINEon 09-09-2024 Beta HCG ( test) Ql (U) Negative Normal NEGATIVE [facility] Comment on above: Performed By: #### 2 81717 #### [place] [address] EXTERNAL QC DONE? YES Normal [facility] Comment on above: Result Comment: Very dilute urine specimens, as indicated by a low specific gravity, may not contain customer loyalty representative levels of hCG. If is still suspected, a first morning urine specimen should be collected 48 hours later and tested. Performed By: #### 2 83149 #### [place] [address] INTERNAL QC PASS Normal [facility] Comment on above: Performed By: #### 2 61164 #### [place] [address] URINALYSISon 09-09-2024 Amorphous NONE Normal [facility] Comment on above: Performed By: #### 2 15827 #### [place] [address] Bacteria 1+ Normal [facility] Comment on above: Performed By: #### 2 05705 #### [facility],[address] [place] [address] Bilirubin Ql (U) Negative Normal NORMAL: NEGATIVE [facility] Comment on above: Performed By: #### 2 70363 #### [facility],[address] [place] [address] Casts NONE Normal [facility] Comment on above: Performed By: #### 2 07195 #### [facility],[address] [place] [address]79 Clarity (U) sl.cloudy Normal NORMAL: CLEAR [facility] Comment on above: Performed By: #### 2 52733 #### [facility],[address] [place] [address] 19503 Color (U) yellow Normal NORMAL: YELLOW [facility] Comment on above: Performed By: #### 2 15227 #### [facility],[address] [place] [address] Crystals LM Nom (Urine sed) NONE Normal [facility] Comment on above: Performed By: #### 2 99212 #### [facility],[address] [place] [address] Epi Cells NONE Normal [facility] Comment on above: Performed By: #### 2 56870 #### [facility],[address] [place] [address] Glucose Ql (U) NORM Normal NORMAL: NORMAL [facility] Comment on above: Performed By: #### 2 61461 #### [facility],[address] [place] [address] Hemoglobin Ql (U) 50 Abnormal NORMAL: NEGATIVE [facility] Comment on above: Performed By: #### 2 94152 #### [facility],[address] [place] [address] Ketone 50 Abnormal NORMAL: NEGATIVE [facility] Comment on above: Performed By: #### 2 26073 #### [facility],[address] [place] [address] Leukocytes 500 Abnormal NORMAL: NEGATIVE [facility] Comment on above: Performed By: #### 2 29163 #### [facility],[address] [place] [address] Mucous NONE Normal [facility] Comment on above: Performed By: #### 2 61533 #### [facility],[address] [place] [address] Nitrite Ql (U) Negative Normal NORMAL: NEGATIVE [facility] Comment on above: Performed By: #### 2 58112 #### [facility],[address] [place] [address] pH (U) 6 [pH] Normal NORMAL: 5.0-8.0 [facility] Comment on above: Performed By: #### 2 92716 #### [facility],[address] [place] [address] Protein Ql (U) 30 Abnormal NORMAL: NEGATIVE [facility] Comment on above: Performed By: #### 2 87719 #### [facility],[address] [place] [address] Rbc 0-5 Normal 0-3/hpf [facility] Comment on above: Performed By: #### 2 81438 #### [facility],[address] [place] [address] Sp [place] 1.010 Normal NORMAL: 1.010-1.030 [facility] Comment on above: Performed By: #### 2 26076 #### [facility],[address] [place] [address] Specimen Type R Normal [facility] Comment on above: Performed By: #### 2 46926 #### [facility],[address] [place] [address] Urinalysis dipstick W Reflex Microscopic panel (U) SEE BELOW Normal [facility] Comment on above: Result Comment: MICR OSCOPIC Performed By: #### 2 99001 #### [facility],[address] [place] [address] Urobilinog NORM Normal NORMAL: NORMAL [facility] Comment on above: Performed By: #### 2 47974 #### [facility],[address] [place], [place] [address] WBC (U) [#/Vol] /uL Normal 0-5/hpf [facility] Comment on above: Performed By: #### 2 06731 #### [facility],[address] [place] [address]54 Yeast NONE Normal [facility] Comment on above: Performed By: #### 2 61923 #### [facility],[address] [place] [address] URINE CULTURE [CCL]on 2024 Bacteria identified Cx [...] and its performance characteristics determined by the [facility]'s [facility] [place] ([facility]). It has not been cleared or approved by the FDA. -[facility] is regulated under CLIA as qualified to perform high-complexity testing. This test is used for clinical purposes. It should not be regarded as investigational or for research. SOURCE: Urine, Kurtz Catheter [facility] [address] [place] [address] Greg Mcarthur III, M.D. [id number] Normal [facility] Comment on above: Performed By: #### 2 48423 #### [facility],[address] [place] [address] No Panel Informationon 02-17 VARICELLA ZOSTER VIRUS ANTIBODY (IGG) <135.00 Abnormal [facility], [facility].; [employer], [employer]. Vital Signs Date Time Vital Sign Value Performing Clinician Facility 10-11-2024 13:32-0400 Body height 157.5 cm Rachel Rosalinda DO Work Phone: [facility] [employer] 10-11-2024 13:32-0400 Body mass index (BMI) [Ratio] 35.48 kg/m2 Rachel Tellez DO Work Phone: [facility] [employer] 10-11-2024 13:32-0400 Body weight 88 kg Rachel [facility] [employer] Work Phone: [facility] [employer] 10-11-2024 13:32-0400 Diastolic blood pressure 83 mm[Hg] Rachel Tellez DO Work Phone: [employer] 10-11-2024 13:32-0400 Heart rate 86 /min Rachel Tellez [employer] Work Phone: [employer] 10-11-2024 13:32-0400 Systolic blood pressure 128 mm[Hg] Rachel Tellez DO Work Phone: [facility] [employer] 10-09-2024 08:06-0400 Body height 158.75 cm Sharri iDll RN [employer], [employer].; [employer]. 10-09-2024 08:06-0400 Body mass index (BMI) [Ratio] 34.92 kg/m2 Sharri Dill RN [place] [employer], [facility].; [employer] [facility]. 10-09-2024 08:06-0400 Body surface area Derived from formula 1.9 m2 Sharri Dill RN [facility] [employer], [facility].; [facility] [employer] [facility]. 10-09-2024 08:06-0400 Body temperature 97.9 [degF] Sharri [facility]ill RN [facility].; [facility]. Comment on above: Method: Tympanic 10-09-2024 08:06-0400 Body weight 88 kg Sharri Dill RN [facility].; [facility]. 10-09-2024 08:06-0400 Diastolic blood pressure 74 mm[Hg] Sharri Dill RN [facility].; [facility]. Comment on above: Patient Position: Sitting; Cuff Location : Left Arm; Cuff Size: Standard 10-09-2024 08:06-0400 Heart rate 85 /min Sharri Dill RN [facility].; [facility]. Comment on above: Pattern: Regular 10-09-2024 08:06-0400 Systolic blood pressure 108 mm[Hg] Sharri Dill RN [facility].; [facility] [employer] [facility]. Comment on above: Patient Position: Sitting; Cuff Location : Left Arm; Cuff Size: Standard 10-04-2024 14:59-0400 Body temperature 98.5 [degF] Dr. Maggie Crook MD Work Phone: [facility] 10-04-2024 14:59-0400 Diastolic blood pressure 76 mm[Hg] Dr. Maggie Crook MD Work Phone: [facility] 10-04-2024 14:59-0400 Heart rate 89 /min Dr. Maggie Crook MD Work Phone: [facility] 10-04-2024 14:59-0400 Respiratory rate 18 /min Dr. Maggie Crook MD Work Phone: [facility] 10-04-2024 14:59-0400 SaO2% (BldA) [Mass fraction] 99 % Dr. Maggie Crook MD Work Phone: [facility] 10-04-2024 14:59-0400 Systolic blood pressure 115 mm[Hg] Dr. Maggie Crook MD Work Phone: [facility] 10-01-2024 18:49-0400 Body mass index (BMI) [Ratio] 37 kg/m2 Dr. Maggie Crook MD Work Phone: [facility] 10-01-2024 18:49-0400 Body weight 91.[address] Maggie Crook MD Work Phone: [facility] 10-01-2024 18:35-0400 Body height 157.[address] Maggie Crook MD Work Phone: [facility] 09-14-2024 09:22-0400 Body height 158.75 cm Gillian Ho LPN [facility].; [facility]. 09-14-2024 09:22-0400 Body mass index (BMI) [Ratio] 36.72 kg/m2 Gillian Ho LPN [facility].; [facility] 09-14-2024 09:22-0400 Body surface area Derived from formula 1.94 m2 Gillian Ho LPN [facility].; [facility] 09-14-2024 09:22-0400 Body temperature 97.7 [degF] Gillian Ho LPN [facility].; [facility] Comment on above: Method: Tympanic 09-14-2024 09:22-0400 Body weight 92.53 kg Gillian Ho LPN [facility] 09-14-2024 09:22-0400 Diastolic blood pressure 86 mm[Hg] Gillian Ho LPN [facility].; [facility] Comment on above: Patient Position: Sitting; Cuff Location : Left Arm; Cuff Size: Standard 09-14-2024 09:22-0400 Heart rate 91 /min Gillian Ho LPN [facility].; [employer] Comment on above: Pattern: Regular 09-14-2024 09:22-0400 Systolic blood pressure 126 mm[Hg] Gillian Ho LPN [facility] [employer] Comment on above: Patient Position: Sitting; Cuff Location : Left Arm; Cuff Size: Standard 02-17-2019 10:20-0500 Body height 158.75 cm Malaika Romero PA-C Work Phone: [employer] [employer] 02-17-2019 10:20-0500 Body mass index (BMI) [Ratio] 32.94 kg/m2 Malaika Romero PA-C Work Phone: [employer] [employer]. 02-17-2019 10:20-0500 Body surface area Derived from formula 1.85 m2 Malaika Romero PA-C Work Phone: [employer] [employer]. 02-17-2019 10:20-0500 Body temperature 97.4 [degF] Malaika Romero PA-C Work Phone: [employer] [employer]. Comment on above: Method: Tympanic 02-17-2019 10:20-0500 Body weight 83.01 kg Malaika Romero PA-C Work Phone: [employer] [employer]. 02-17-2019 10:20-0500 Diastolic blood pressure 81 mm[Hg] Malaika Romero PA-C Work Phone: [employer] [employer]. Comment on above: Patient Position: Sitting; Cuff Location : Left Arm; Cuff Size: Standard 02-17-2019 10:20-0500 Heart rate 73 /min Malaika Romero PA-C Work Phone: [employer] [employer]. Comment on above: Pattern: Regular 02-17-2019 10:20-0500 Systolic blood pressure 119 mm[Hg] Malaika Romero PA-C Work Phone: [employer] [employer]. Comment on above: Patient Position: Sitting; Cuff Location : Left Arm; Cuff Size: Standard Encounters Encounter Date Encounter Type Care Provider Facility Start: 11-07-2024 [facility] Facility:[facility] Start: 10-18-2024 End: 11-06-2024 Telephone encounter Rachel Tellez DO Work Phone: [facility] [employer] Comment on above: Appointment Request Start: 10-18-2024 End: 10-18-2024 Subsequent hospital visit by physician Rachel Tellez DO Work Phone: [facility] Comment on above: Recurrent UTI; Solitary kidney, acquired; Neurogenic bladder; Bilateral hydronephrosis; Renal atrophy, left Start: 10-18-2024 End: [facility]-18[facility] Start: 10-17-2024 End: 10-17-2024 Orders Only Rachel Tellez DO Work Phone: [facility] [employer] Comment on above: Renal atrophy, left (Primary Dx); Bilateral hydronephrosis Start: 10-14-2024 End: 10-17-2024 Follow-up encounter Rachel Tellez DO Work Phone: [facility] [employer] Comment on above: AMB POC URINALYSIS D IP STICK AUTO W/O MICRO, Urine culture AMB POC URINALYSIS D IP STICK AUTO W/O MICRO, Urine culture, CT UROGRAM w wo iv contrast Start: 10-12-2024 End: 10-17-2024 Telephone encounter Rachel Tellez DO Work Phone: [facility] [employer] Comment on above: Surgery Scheduling Start: 10-11-2024 End: 10-11-2024 Office outpatient new 60 minutes Rachel Tellez DO Work Phone: [facility] [employer] Comment on above: Neurogenic bladder ( Primary Dx); Mitrofanoff appendicovesicostomy present (CMS/HCC) (HCC); Recurrent UTI; Solitary kidney, acquired; Bilateral hydronephrosis; Renal atrophy, left; Stress incontinence in female; Incompetence of bladder neck; Dysuria Start: 10-11-2024 End: 10-11-2024 [facility] Start: 10-09-2024 End: 10-09-2024 Office outpatient visit 15 minutes Yina Drake PA-C Work Phone: [employer]. Start: 10-05-2024 End: 10-05-2024 Telephone encounter Rachel Tellez DO Work Phone: [facility] Start: 10-04-2024 Non-patient / Non-visit Dr. Mauricio palacios MD [facility] Work Phone: Start: 10-03-2024 Non-patient / Non-visit Dr. Lisa beth MD [facility] Start: 10-03-2024 Non-patient / Non-visit Dr. Mauricio palacios MD [facility] Work Phone: Start: 10-02-2024 Non-patient / Non-visit Dr. Lisa beth MD [facility] Start: 10-02-2024 Non-patient / Non-visit Dr. Tom Cortez MD [facility] Work Phone: Start: 10-01-[address] [facility] Facility:[facility] [place] Start: 10-01-2024 End: 10-04-2024 Evaluation and management of inpatient Dr. Mauricio Levine MD -[facility] 3 Work Phone: Start: 10-01-2024 End: 10-01-2024 Emergency department patient visit LESTER Bar GALLARDO [facility] Start: 09-14-2024 End: 09-14-2024 Historical Summary Yina Drake PA-C Work Phone: [employer] Start: 09-14-2024 End: 09-14-2024 Office outpatient new 30 minutes Yina Drake PA-C Work Phone: [employer]. Start: 09-09-2024 End: 09-11-2024 Evaluation and management of inpatient MALAIKA ROMERO [facility] Start: 02-17-2019 End: 02-17-2019 Patient encounter procedure Malaika Romero PA-C Work Phone: [facility]. Procedures Date Procedure Procedure Detail Performing Clinician Start: 10-18-2024 Ct abdomen & pelvis w/o contrst 1/> body re Rachel Tellez DO Work Phone: Start: 10-18-2024 Creatinine blood Wilton Tellez DO Work Phone: Start: 10-11-2024 Urnls dip stick/tabl et rgnt auto w/o microscopy Rachel Tellez DO Work Phone: Start: 10-04-[address] Maggie Crook MD Work Phone: Start: 10-02-[address] Maggie Crook MD Work Phone: Start: 10-02-2024 Computed tomography of abdomen and pelvis with contrast Dr. Maggie Crook MD Work Phone: Start: 10-01-2024 Urinalysis LESTER GALLARDO Comment on above: Result Comment: URIN ALYSIS Performed By: #### [id number] #### [facility],[address] [place] [address] Start: 09-09-2024 Urinalysis LESTER GALLARDO Comment on above: Result Comment: URIN ALYSIS Performed By: #### [id number] #### [facility],[address] [place] [address] Start: 02-15-2001 End: 02-15-2001 Appendectomy Gillian Ho LPN Comment on above: Removed so they coul d use the tissue to reconstruct her bladder bladderneck reconstruction Mitzi Romero PA-C Work Phone: Comment on above: 1997, 1999, 2001-akr on childrens bladderneck reconstruction Mitzi Ho LPN Comment on above: 1997, 1999, 2001-akr on childrens bladderneck reconstruction Kristy Dill RN Comment on above: 1997, 1999, 2001-akr on childrens H/O: surgery History of bladd er repair surgery Yina Drake PA-C Work Phone: H/O: surgery History of bladd er repair surgery Yina Drake PA-C Work Phone: H/O: surgery History of bladd er repair surgery Sharri Dill RN Plan of Treatment Date Care Activity Detail Author Start: 05-31-2067 RSV Immunization for Adults (1 - 1-dose 75+ series) RSV Immunization for Adults (1 - 1-dose 75+ series) [facility] Start: 2042 Zoster Vaccines (1 of 2) Zoster Vacc rosario (1 of 2) [facility] Start: 11-28-2024 End: 11-28-2024 Patient encounter procedure 11/28/2024 9:00 AM EDT Office [facility] [address] [place] [phone] Rachel Tellez DO [address] [place] [phone] [facility] Start: 11-17-2024 End: 11-17-2024 Admission to same day surgery center 11/17/2024 8:30 AM EDT - 11/17/2024 10:00 AM EDT Surgery [facility] [address] [place] [phone] Rachel Tellez DO [address] [place] [phone] CYSTOSCOPY, WITH RETROGRADE PYELOGRAM AND URETEROSCOPY [93896 (CPT )] [facility] Comment on above: CYSTOSCOPY, WITH RET ROGRADE PYELOGRAM AND URETEROSCOPY [92484 (CPT )] Start: 11-17-2024 End: 11-17-2024 Cysto bladder w/ureteral catheterization CYSTOSCOPY, WITH RETROGRADE PYELOGRAM AND URETEROSCOPY Stress incontinence (female) (male) Neuromuscular dysfunction of bladder, unspecified Other specified disorders of bladder Appendico-vesicostomy status (HCC) Unspecified hydronephrosis 11/17/2024 8:30 AM EDT [facility] Operating Room Start: 11-17-2024 End: 11-17-2024 Cystography minimum 3 views rs&i CYSTOGRAM Stress incontinence (female) (male) Neuromuscular dysfunction of bladder, unspecified Other specified disorders of bladder Appendico-vesicostomy status (HCC) Unspecified hydronephrosis 11/17/2024 8:30 AM EDT [facility] Operating Room Start: 11-17-2024 End: 11-17-2024 Pelvic examination w/anesthesia other than local EXAMINATION UNDER ANESTHESIA, PELVIS Stress incontinence (female) (male) Neuromuscular dysfunction of bladder, unspecified Other specified disorders of bladder Appendico-vesicostomy status (HCC) Unspecified hydronephrosis 11/17/2024 8:30 AM EDT [facility] Operating Room Start: 11-17-2024 Subsequent hospital visit by physician 11/17/2024 8:30 AM EDT Hospital Encounter [facility] [address] [place] [phone] Rachel Tellez, DO [address] [place] [phone] [facility] Start: 11-15-2024 End: 11-15-2024 Patient encounter procedure 11/15/2024 11:00 AM EDT Office Visit [facility] [address] [place] [phone] Rachel Tellez, [address] [place] [phone] [facility] Start: 11-08-2024 End: 11-08-2024 Admission to [facility] Pre-Admit Testing Start: 10-18-2024 End: 10-11-2025 CT Kidney and Ureter and Urinary bladder WO and W contrast IV CT UROGRAM w wo iv contrast Imaging Routine Recurrent UTI Solitary kidney, acquired Neurogenic bladder Bilateral hydronephrosis Renal atrophy, left Expected: 10/18/2024, Expires: 10/11/2025 [facility] Work Phone: Comment on above: Expected: 10/18/2024 , Expires: 10/11/2025 Start: 10-18-2024 Subsequent hospital visit by physician 10/18/2024 10:15 AM EDT Hospital Encounter [facility] [address] [place] [phone] Rachel Tellez DO [address] [place] [address] [facility] [address] Start: 10-17-2024 End: 10-17-2025 Creatinine [Mass/volume] in Serum or Plasma Creatinine, Serum Lab Routine Renal atrophy, left Bilateral hydronephrosis Expected: 10/17/2024 (Approximate), Expires: 10/17/[address] [facility] [employer] Work Phone: Comment on above: Expected: 10/17/2024 (Approximate), Expires: 10/17/2025 Start: 10-16-2024 COVID-19 Vaccine ( season) COVID-19 Vaccine ( season) [facility] Start: 10-16-2024 Influenza vaccination Influenza Vacc ine (#1) [facility] Start: 10-11-2024 End: 10-11-2024 Patient encounter procedure 10/11/2024 1:40 PM EDT Office Visit [facility] [place] [address] [place] [phone] Rachel Tellez DO [address] [place] [address] [facility] [place] Start: 10-04-2024 Patient discharge [facility] Start: 10-02-2024 [facility] Start: 10-02-2024 End: 10-02-2024 Chart related administrative procedure [facility] Start: 10-02-2024 End: 10-02-2024 Consultation [facility] Start: 10-01-2024 Application of intermittent pneumatic compression device [facility] Start: 10-01-2024 Following clinical pathway protocol [facility] Start: 10-01-2024 Admission procedure [facility] Start: 10-01-2024 Provision of activit y privileges [facility] Start: 10-01-2024 Assessment of risk o f venous thromboembolism [facility] Start: 10-01-2024 Insertion of cathete r into peripheral vein [facility] Start: 10-01-2024 Measuring intake and output [facility] Start: 10-01-2024 Providing care accor ding to standard [facility] Start: 10-01-2024 [facility] Start: 09-14-2024 Patient encounter procedure [facility]. Start: 10-17-2023 COVID-19 Vaccine () COVID-19 Vaccine () [facility] Start: 2022 Screening for malign ant neoplasm of cervix [facility] Start: 2013 Screening for malign ant neoplasm of cervix Pap Smear [facility] Start: 05-31-2011 DTaP/Tdap/Td Vaccine s (1 - Tdap) DTaP/Tdap/Td Vaccines (1 - Tdap) [facility] Start: 05-31-2011 Hepatitis B Vaccines (1 of 3 - 19+ 3-dose series) Hepatitis B Vaccines (1 of 3 - 19+ 3-dose series) [facility] Start: 2010 Hepatitis C screening Hepatitis C Sc reening [facility] Start: 2005 Varicella vaccination Varicell a Vaccines (1 of 2 - 13+ 2-dose series) [facility] Start: 2004 Depression Screening Depression Scre ening [facility] Start: 1993 MMR Vaccines (1 of 1 - Standard series) MMR Vaccines (1 of 1 - Standard series) [facility] Start: 1992 HIV screening HIV Screening [facility] Bacteria identified in Urine by Culture Urine culture Microbiology Routine Recurrent UTI Dysuria Ordered: 10/11/2024 [facility] Comment on above: Ordered: 10/11/2024 Payers Date Payer Category Payer Self-pay 2024 Unknown [id number] 2011 [employer] - HMO [id number] 2011 Unknown [id number] 1992 Unknown [id number] 2.16.8 [id number] 1990 Unknown [id number] 2.16.8 [id number] Unknown 75-1 Unknown [id number] 2.16.8 [id number] Unknown [id number] 2.16.8 [id number] Unknown [id number] 2.16.8 [id number] Unknown [id number] 2.16.8 [id number] Unknown [id number] 2.16.8 [id number] Unknown [id number] 2.16.8 [id number] Unknown [id number] 2.16.8 [id number] Unknown [id number] 2.16.8 [id number] Social History Date Type Detail Facility Start: 10-11-2024 Caffeine Use Caffeine Use [facility] Tobacco Use: Tobacco Use: ; N ever smoker. [facility]. Start: 1990 Female [facility] Start: 10-01-2024 End: 10-11-2024 Never smoked tobacco [facility] Start: 10-11-2024 Not [facility] Tobacco smoking status ARIS Tobacco smoking consumption unknown [facility] Start: 1990 Sex assigned at Not on file [facility] Start: 10-04-2024 Sex Female (finding) [facility] Start: 10-11-2024 Tobacco use and exposure Smokeless tobacco non-user [facility] Goals Date Patient Goal Desired Activity /State Functional Status Date Assessment Result Facility 10-04-2024 Functional status Chair [facility] Work Phone: Mental Status Date Assessment Result Facility 10-04-2024 Cognitive function Voice/Name [facility] Work Phone: Clinical Notes 10-01-2024 to 10-19-2024 Telephone Encounter - Khushbu Chaudhary - 10/19/2024 9:20 AM EDTTelephone Encounter - Khushbu Chaudhary - 10/19/2024 9:20 AM EDTTelephone Encounter - Rachel Tellez DO - 10/18/2024 5:43 PM EDT Note Date & Type Note Facility 10-19-2024 Telephone encounter Note Spoke to pt and moved her appt to after her sx so they can go over the results. Scheduled for 11/28/[address] Tellez at [address] [facility] 10-19-2024 Miscellaneous Notes Spoke to pt and moved her appt to after her sx so they can go over the results. Scheduled for 11/28/[address] Tellez at [address] Need to move Lora's appointment on 11/15/24 as it was supposed to be after her surgery which is scheduled for 11/17/24 Any date after 11/17/24 is fine to discuss OR findings documented in this encounter [facility] 10-18-2024 Telephone encounter Note Need to move Lora's appointment on 11/15/24 as it was supposed to be after her surgery which is scheduled for 11/17/24 Any date after 11/17/24 is fine to discuss OR findings [facility] 10-17-2024 Telephone encounter Note Spoke to pt about upcoming PAT (phone call) and surgery at [facility] Doctor: Rosalinda Location:[facility] PAT (phone call): 11/08/2024 9:30 AM PAT instructions: Please bring photo ID, insurance card, list of all current medications Surgery: 11/17/2024 8:30 AM Surgery arrival time: 6:30 AM [facility] 10-17-2024 Miscellaneous Notes Spoke to pt about upcoming PAT (phone call) and surgery at [facility] Doctor: Rosalinda Location:[facility] PAT (phone call): 11/08/2024 9:30 AM PAT instructions: Please bring photo ID, insurance card, list of all current medications Surgery: 11/17/2024 8:30 AM Surgery arrival time: 6:30 AM OR Request for Rosalinda PROCEDURE: Cystoscopy Pelvic examination under anesthesia Cystogram Possible retrograde pyelograms DIAGNOSIS: Stress incontinence N39.3 Neurogenic bladder N31.9 Incompetence of bladder neck N32.89 Mitrofanoff present Z93.52 Bilateral hydronephrosis N13.30 FACILITY: [facility] DETAILS: OUTPT ANESTHESIA: GENERAL TIME REQUESTED: 90 minutes DATE REQUESTED: 11/17/24 SURGERY ORDERS: will be Placed by Yasmany Tellez POST OP FOLLOW UP: already scheduled REP REQUESTED: No SPECIAL NEEDS: Flexible cystoscope, 17 fr sheath for rigid cystoscope, flexible ureteroscope PAT: Yes - virtual MEDICAL CLEARANCE: No documented in this encounter [facility] 10-17-2024 Miscellaneous Notes Addended by: SAVANNA SMITH on: 10/18/2024 09:00 AM Modules accepted: Orders documented in this encounter [facility] 10-17-2024 Note Addended by: SAVANNA KAISRE on: 10/18/2024 09:00 AM Modules accepted: Orders [facility] 10-17-2024 Telephone encounter Note Patient returned call. Message released to patient as written. Rachel Tellez DO to [facility] [employer] 10/14/24 9:33 AM Please let pt know her urine culture from office did not show any bacteria Patient's further questions if applicable: none Were all questions from office addressed or relayed to the patient from encounter: Yes [facility] 10-17-2024 Miscellaneous Notes Patient returned call. Message released to patient as written. Rachel Tellez DO to [facility] [employer] 10/14/24 9:33 AM Please let pt know her urine culture from office did not show any bacteria Patient's further questions if applicable: none Were all questions from office addressed or relayed to the patient from encounter: Yes Called and LM to return call. Please inform of provider msg below when Pt returns call. Please let pt know her urine culture from office did not show any bacteria documented in this encounter [facility] 10-17-2024 Telephone encounter Note Called and LM to return call. Please inform of provider msg below when Pt returns call. [facility] 10-14-2024 Progress note Formatting of t his note might be different from the original. 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 Mitrofanoff present Z93.52 Bilateral hydronephrosis N13.30 FACILITY: [facility] DETAILS: OUTPT ANESTHESIA: GENERAL TIME REQUESTED: 90 minutes DATE REQUESTED: 11/17/24 SURGERY ORDERS: will be Placed by Yasmany Tellez POST OP FOLLOW UP: already scheduled REP REQUESTED: No SPECIAL NEEDS: Flexible cystoscope, 17 fr sheath for rigid cystoscope, flexible ureteroscope PAT: Yes - virtual MEDICAL CLEARANCE: No [facility] 10-12-2024 Telephone encounter Note OR Request for Rosalinda PROCEDURE: Cystoscopy Pelvic examination under anesthesia Cystogram Possible retrograde pyelograms DIAGNOSIS: Stress incontinence N39.3 Neurogenic bladder N31.9 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 Rachel Tellez DO Urology Office Visit New patient [facility] - [address] [facility] [address] Dept: [phone] Dept Loc: [phone] PATIENT NAME: Lora Jones DATE OF : 1990 REFERRING PROVIDER: Lisa Clark MD PCP: No primary care provider on file. DATE OF VISIT: 10/11/24 CHIEF COMPLAINT: Chief Complaint Patient presents with New Patient Recurrent UTIs. Pt is on 1 week Cefdinir, finishing this evening. Presently denies any urinary issues. Impression: Diagnoses and all orders for this visit: Neurogenic bladder - CT UROGRAM w wo iv contrast; Future Mitrofanoff appendicovesicostomy present ([facility]/HCC) (HCC) Recurrent UTI - AMB POC URINALYSIS DIP STICK AUTO W/O MICRO - CT UROGRAM w wo iv contrast; Future - Urine culture - sulfamethoxazole-trimethoprim (Bactrim) 400-80 MG tablet; Take 1 tablet by mouth 2 times daily for 7 days. 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 Requested records from [facility] so we can determine what surgeries she has had Bilateral hydronephrosis noted on outside CT Has had recurrent infections Check CT urogram to further evaluate anatomy, evaluate for obstruction Stress incontinence/incompetent bladder neck S/p possible bladder neck reconstruction as a child with Dr Pires May be interested in surgical options for treatment of SAHIL in the future Will plan for OR for cystoscopy, pelvic examination under anesthesia, cystogram, possible pyelograms (wants to wait until after her sister's wedding which is 11/10/24) Follow Up: Follow up for CT urogram , then OR . Rachel Tellez, DO Reconstructive Urology [facility] Subjective: Ms. Jones is a 34 y.o. female who presents to the office for recurrent UTIs. Records have been reviewed HPI HPI Ms. Jones presents with concern for recurrent urinary tract infections. She is being referred by Lisa Clark in [place], [place] to establish care She has a past urological history of severe UTIs as a child. She was hospitalized as a child with UTI/pyelonephritis. Her mom said that as a child, she had a vaginal bulge which was snipped. Possibly a ureterocele? Also had a cyst of some sort in the pelvis; when she was 7 years old she had this cut but there was a problem with the bladder. 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 She is self catheterizing Q 2 hours during the day At night she will sometimes leak urine both from the mitrofanoff and from below Uses a 12 fr straight catheter to perform CIC She has not followed with urology for many years since age 14 (Dr Pires / Dr Barron) She wears depends daily Can use 3-7 per day Sometimes soaked More so at night than day Does not do any irrigation of the bladder - we do not know if she has had a bladder augment Sister is getting nov 10 would like to wait until after this date for surgery 10/02/24 CTAP ([facility]) Moderate right hydroureteronephrosis, mild left hydroureteronephrosis. Severe left renal atrophy. Thickened/lobulated bladder. Mitrofanoff seen going to umbilicus When did infections start? This past year How many UTIs in the past 12 months? Hospitalized twice this summer with E coli pyelonephritis What symptoms are typically present? Severe back/flank/abdominal pain History of urolithiasis? No History of prior bladder / urinary surgery? Yes - neurogenic bladder with Mitrofanoff (2001 or 2002); performs CIC via mitrofanoff Average daily fluid intake? About 64 oz water Problems with constipation? Diarrhea (due to the antibiotics) For women, joe or post menopausal? Pre She has normal menstrual cycles Catheterizes q 2 hrs. Usually about 300-350cc Q 2 hrs Nocturia x yes. Urgency: rare UUI: some leakage at times SAHIL: yes Dysuria: denies Gross Hematuria: denies Documented history of urine cultures: 10/05/24 >100K E coli (R ampicillin), >100K Group C/D Step 08/2024 >100K E coli Antibiotic allergies: None Prior treatment(s) tried: Cefdinir 300mg BID x 7 days (2 courses this summer) Discussed options for UTI prevention including: Optimizing both voiding and bowel habits Oral cranberry supplement +/- D-mannose. Topical vaginal estrogen (not hormone replacement therapy) We discussed in detail that extensive studies have shown topical estrogen to be safe and effective in UTI prevention. Vaginal estrogen is prescribed in an extremely low dose and there is no appreciable systemic absorption, and use has not been shown to cause [recurrence of] breast, ovarian, endometrial cancer, nor has it been show to induce venous thromboembolism (DVT) Methenamine hippurate (Hipprex) 1g PO, BID + vitamin C 250mg PO, BID. Most common side effect mild dyspepsia/GI upset Suppressive oral antibiotic therapy Risks of use include antibiotic resistance, antibiotic sensitivity or allergic reaction, genital yeast infection, GI upset/diarrhea, and even C.diff infection Antibiotic bladder instillations Risks include discomfort from catheter insertion, bleeding, pain, UTI Tobacco History reports that she has never smoked. She has never used smokeless tobacco. Review of Systems Review of Systems Constitutional: Negative. HENT: Negative. Gastrointestinal: Negative. Genitourinary: Positive for enuresis, flank pain, frequency and urgency. Negative for difficulty urinating and hematuria. Past Medical History: Medical History[1] Past Surgical History: Surgical History[2] Medications Current Medications[3] Vitals: BP 128/83 Pulse 86 Ht 5' 2 (1.575 m) Wt 194 lb (88 kg) BMI 35.48 kg/m Physical Exam Physical Exam Constitutional: Appearance: Normal appearance. She is normal weight. Pulmonary: Effort: Pulmonary effort is normal. Skin: General: Skin is warm and dry. Neurological: Mental Status: She is alert and oriented to person, place, and time. Labs: Lab Results Component Value Date GLUCOSEUR Negative 10/11/2024 BILIRUBINUR Negative 10/11/2024 KETONESU Negative 10/11/2024 SPECGRAV 1.010 10/11/2024 PHUR 6.0 10/11/2024 PROTUR Negative 10/11/2024 UROBILINOGEN 0.2 10/11/2024 LEUKOCYTESUR Small 10/11/2024 NITRITE Negative 10/11/2024 On date of service, I spent 60 minutes reviewing the chart, performing a history and physical, and formulating a plan of care [1] No past medical history on file. [2] No past surgical history on file. [3] Current Outpatient Medications: cefdinir (Omnicef) 300 MG capsule, 300 mg., Disp: , Rfl: sulfamethoxazole-trimethoprim (Bactrim) 400-80 MG tablet, Take 1 tablet by mouth 2 times daily for 7 days. Start taking if symptoms of UTI, Disp: 14 tablet, Rfl: 0 documented in this encounter [facility] 10-05-2024 Note Referral received fo r recurrent UTIs, scanned into media. Spoke to patient, appt scheduled 10/11/[address] Tellez in [place]. [facility] 10-05-2024 Telephone encounter Note Referral received for recurrent UTIs, scanned into media. Spoke to patient, appt scheduled 10/11/[address] Tellez in [place]. [facility] 10-05-2024 Miscellaneous Notes Referral received for recurrent UTIs, scanned into media. Spoke to patient, appt scheduled 10/11/[address] Tellez in [place]. documented in this encounter [facility] 10-04-2024 Consult note [facility] 10-04-2024 Progress note [facility] 10-04-2024 Progress note [facility] 10-04-2024 Discharge summary [facility] 10-04-2024 Note [facility] Medical Records Department [address] [place] [id number] Discharge Summary 10/04/24 1407 MR#: [id number] Acct: [id number] Name: LORA JONES Rep #: [id number] : 1990 34 From: Mauricio Levine MD PCP: EDWIN Campoverde Status:ADM IN Location: [facility] [id number] Providers Date of Admission: 10/01/24 Date of Discharge: 10/04/24 Primary Care Physician: EDWIN Campoverde Consultations 10/02/24 10:58 Consult: Urology Routine Consulting Provider: Lisa Clark Reason for Consult: complicated UTI, B/L hydroureteronephrosis EMERGENT Consult: No MD Notified: Yes Date Notified: 10/02/24 Time Notified: 10:59 Method of Notification: Verbal 10/02/24 11:30 Consult: Infectious Disease Routine Consulting Provider: Philipp Qureshi Reason for Consult: fever despite 2 doses Zosyn, complicated UTI, B/L hydro, Rt pyelo EMERGENT Consult: No Notified: Yes Date Notified: 10/02/24 Time Notified: 11:31 Method of Notification: Text Reason For Visit: COMPLICATED UTI Diagnosis Discharge Diagnosis (1) Complicated UTI (urinary tract infection): Status: Acute Code(s): N39.0 - Urinary tract infection, site not specified Plan 34-year-old female with 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 Recurrent complicated UTI secondary to self-catheterization with acute pyelonephritis ??? Imaging studies on admission demonstrated Diffuse thickening of the bladder suggestive of cystitis. Moderate right hydroureteronephrosis, probably reflux. Mild left hydroureteronephrosis, probably reflux. Bilateral heterogeneous nephrogram of the kidneys, probably acute pyelonephritis. No obstructing stone or drainable abscess formation. Severe chronic atrophy of the left kidney. Patient was admitted to regular nursing floor started on Zosyn cultures sent result pending. Case was discussed with Dr. Clark with urology on admission ??? 10/04/2024;Patient urine cultures exhibited no growth. This is not unexpected given her recent treatment at an outside hospital 2 weeks prior. Will defer discharge antibiotic therapy to ID. Patient antibiotic therapy has been de-escalated from Zosyn to ceftriaxone the day prior by ID ??? Patient was discharged home on cefdinir per recommendations from Dr. Qureshi with ID 2. Class II obesity with BMI of 37 ??? Weight loss advised 3. Anemia ??? Secondary to chronic disorder monitoring H H and transfuse if patient becomes symptomatic or hemoglobin falls below 7 4. Mild thrombocytopenia ??? Will monitor with daily CBC with differential 5. DVT prophylaxis ??? Bilateral SCDs Time spent in the patient's overall evaluation,decision-making process, review of diagnostic data, adjustment of management, discussion with other providers, nursing nursing and ancillary staff involved in patient's care documentation, 38 Minutes Medications at Discharge Home Medications NK 10/01/24 cefdinir 300 mg capsule 300 mg PO BID #14 caps 10/04/24 Physical Exam Narrative GENERAL: cooperative HEENT: Atraumatic; normocephalic EYES; Anicteric, Normal Conjunctiva NECK; supple, normal thyroid, RESPIRATORY: Diminished to auscultation CARDIOVASCULAR: Regular S1 S2, GI: soft, normoactive bowel sounds, : Neobladder reconstruction with membrane,metanephroma through with she empties bladder. EXTREMITIES: No edema, no clubbing, MUSCULOSKELETAL: no muscle wasting NEURO: Awake; no lateralizing signs. SKIN: No Rash PSYCH; Flat affect Weight / BMI Weight Weight: 91.4 kg Body Mass Index (BMI) 37.0 ABG / Lab / Microbiology Data 10/04/24 06:08 10/04/24 06:08 Laboratory: Laboratory Results - last 24 hr 10/04/24 06:08: WBC 6.8, RBC 3.83 L, Hgb 12.1, Hct 34.6 L, MCV 90.3, MCH 31.6, MCHC 35.0, RDW Std Deviation 40.3, RDW Coeff of Janelle 12.1, Plt Count 157, MPV 10.8, Immature Gran % (Auto) 0.400, Neut % (Auto) 73.6 H, Lymph % (Auto) 16.2 L, [place] % (Auto) 8.2, Eos % (Auto) 1.3, Baso % (Auto) 0.3, Absolute Neuts (auto) 5.0, Absolute Lymphs (auto) 1.11, Nucleated RBC % 0, Sodium 140, Potassium 3.7, Chloride 107, Carbon Dioxide 20.6 L, Anion Gap 12, BUN 8, Creatinine 0.78, Estim Creat Clear Calc 108.90, Est GFR (MDRD) Non-Af 104, BUN/Creatinine Ratio 10.0, Glucose 94, Calcium 8.7 Microbiology: Microbiology 10/02/24 12:31 Urine Catheter - Catheter Urine Culture - Final Culture exhibits no growth. D/C Instructions Discharge Activity: Return to Normal Activity Call your doctor if you observe: Fever of 101 or Higher, Shortness of breath, Fainting spells and Chest pain DC O2, CPAP, BIPAP Needs Home O2 Discharge instructions: No Meaningful Use Info Meaningful Use Meaningful (more content not included)... [facility] 10-04-2024 Hospital Discharge instructions Additional Instructions Date of Discharge: 10/04/24 [facility] Work Phone: 10-04-2024 Progress note Note Date/Time October 04, 2024 9:33am [facility] Medical Records Department [address] [place] [address] Progress Note - Hospitalist 10/04/24 0742 MR#: [id number] Acct: [id number] Name: LORA JONES Rep #:[id number] : 1990 34 From: Mauricio Levine MD PCP: EDWIN Campoverde Status:ADM IN [facility] Reason for Visit Chief Complaint: Weakness, fever, concern for UTI Subjective Subjective Patient urine cultures exhibited no growth. This is not unexpected given her recent treatment at an outside hospital 2 weeks prior. Will defer discharge antibiotic therapy to ID. Patient did experience a low-grade fever of 99.9 in the early hours of the morning otherwise hide at on event for Objective Data Objective Data Vital Signs: Vital Signs Temp Pulse Resp BP Pulse Ox O2 Del Method 98.9 F 78 16 123/87 H 98 Room Air 10/04/24 05:17 10/04/24 03:40 10/04/24 03:40 10/04/24 03:40 10/04/24 03:40 10/04/24 03:40 Oxygen Delivery Method Room Air Weight: 91.4 kg Body Mass Index (BMI) 37.0 Intake & Output: Intake and Output for Last 24 Hours 10/02/24 10/03/24 10/04/24 23:59 23:59 23:59 Intake Total 1700 / 1700 3007.5 / 3007.5 350 / 350 Output Total 1550 / 1550 3100 / 3100 900 / 900 Balance 150 / 150 -92.5 / -92.5 -550 / -550 Lab / Micro Data 10/04/24 06:08 10/04/24 06:08 Labs: Laboratory Results - last 24 hr 10/04/24 06:08: WBC 6.8, RBC 3.83 L, Hgb 12.1, Hct 34.6 L, MCV 90.3, MCH 31.6, MCHC 35.0, RDW Std Deviation 40.3, RDW Coeff of Janelle 12.1, Plt Count 157, MPV 10.8, Immature Gran % (Auto) 0.400, Neut % (Auto) 73.6 H, Lymph % (Auto) 16.2 L,[place] % (Auto) 8.2, Eos % (Auto) 1.3, Baso % (Auto) 0.3, Absolute Neuts (auto) 5.0, Absolute Lymphs (auto) 1.11, Nucleated RBC % 0, Sodium 140, Potassium 3.7, Chloride 107, Carbon Dioxide 20.6 L, Anion Gap 12, BUN 8, Creatinine 0.78, EstimCreat Clear Calc 108.90, Est GFR (MDRD) Non-Af 104, BUN/Creatinine Ratio 10.0, Glucose 94, Calcium 8.7 Micro: Microbiology 10/02/24 12:31 Urine Catheter - Catheter Urine Culture - Preliminary Culture exhibits no growth. Physical Exam Narrative GENERAL: cooperative HEENT: Atraumatic; normocephalic EYES; Anicteric, Normal Conjunctiva NECK; supple, normal thyroid, RESPIRATORY: Diminished to auscultation CARDIOVASCULAR: Regular S1 S2, GI: soft, normoactive bowel sounds, : Neobladder reconstruction with membrane,metanephroma through with she empties bladder. EXTREMITIES: No edema, no clubbing, MUSCULOSKELETAL: no muscle wasting NEURO: Awake; no lateralizing signs. 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 Recurrent complicated UTI secondary to self-catheterization with acute pyelonephritis ? Imaging studies on admission demonstrated Diffuse thickening of the bladder suggestive of cystitis. Moderate right hydroureteronephrosis, probably reflux. Mild left hydroureteronephrosis, probably reflux. Bilateral heterogeneous nephrogram of the kidneys, probably acute pyelonephritis. No obstructing stone or drainable abscess formation. Severe chronic atrophy of the left kidney. Patient was admitted to regular nursing floor started on Zosyn cultures sent result pending. Case was discussed with Dr. Clark with urology on admission ? 10/04/2024;Patient urine cultures exhibited no growth. This is not unexpected given her recent treatment at an outside hospital 2 weeks prior. Will defer discharge antibiotic therapy to ID. Patient antibiotic therapy has been de-escalated from Zosyn to ceftriaxone the day prior by ID 2. Class II obesity with BMI of 37 ? Weight loss advised 3. Anemia ? Secondary to chronic disorder monitoring H&H and transfuse if patient becomes symptomatic or hemoglobin falls below 7 4. Mild thrombocytopenia ? Will monitor with daily CBC with differential 5. DVT prophylaxis ? Bilateral SCDs Time spent in the patient's overall evaluation,decision-making process, review of diagnostic data, adjustment of management, discussion with other providers, nursing nursing and ancillary staff involved in patient's care documentation, 38 Minutes Charges/Coding Visit Charges Inpatient E&M: 82271 Subs Hosp L2 10/04/24 0933 <Electronically signed by Mauricio Levine MD> Cosigner Signature (if applicable): CC: ~ Signed [facility] Work Phone: 1(378) 681-965508-20-2025 Progress note [facility] Medical Records Department [address] [place] [id number] Progress Note - Hospitalist 10/04/24 0742 MR#: [id number] Acct: [id number] Name: LORA JONES Rep #:[id number] : 1990 34 From: Mauricio Levine MD PCP: EDWIN Campoverde Status:ADM IN [facility] Reason for Visit Chief Complaint: Weakness, fever, concern for UTI Subjective Subjective Patient urine cultures exhibited no growth. This is not unexpected given her recent treatment at [facility] 2 weeks prior. Will defer discharge antibiotic therapy to ID. Patient did experience a low-grade fever of 99.9 in the early hours of the morning otherwise hide at on event for Objective Data Objective Data Vital Signs: Vital Signs Temp Pulse Resp BP Pulse Ox O2 Del Method 98.9 F 78 16 123/87 H 98 Room Air 10/04/24 05:17 10/04/24 03:40 10/04/24 03:40 10/04/24 03:40 10/04/24 03:40 10/04/24 03:40 Oxygen Delivery Method Room Air Weight: 91.4 kg Body Mass Index (BMI) 37.0 Intake & Output: Intake and Output for Last 24 Hours 10/02/24 10/03/24 10/04/24 23:59 23:59 23:59 Intake Total 1700 / 1700 3007.5 / 3007.5 350 / 350 Output Total 1550 / 1550 3100 / 3100 900 / 900 Balance 150 / 150 -92.5 / -92.5 -550 / -550 Lab / Micro Data 10/04/24 06:08 10/04/24 06:08 Labs: Laboratory Results - last 24 hr 10/04/24 06:08: WBC 6.8, RBC 3.83 L, Hgb 12.1, Hct 34.6 L, MCV 90.3, MCH 31.6, MCHC 35.0, RDW Std Deviation 40.3, RDW Coeff of Janelle 12.1, Plt Count 157, MPV 10.8, Immature Gran % (Auto) 0.400, Neut % (Auto) 73.6 H, Lymph % (Auto) 16.2 L,[place] % (Auto) 8.2, Eos % (Auto) 1.3, Baso % (Auto) 0.3, Absolute Neuts (auto) 5.0, Absolute Lymphs (auto) 1.11, Nucleated RBC % 0, Sodium 140, Potassium 3.7, Chloride 107, Carbon Dioxide 20.6 L, Anion Gap 12, BUN 8, Creatinine 0.78, EstimCreat Clear Calc 108.90, Est GFR (MDRD) Non-Af 104, BUN/Creatinine Ratio 10.0, Glucose 94, Calcium 8.7 Micro: Microbiology 10/02/24 12:31 Urine Catheter - Catheter Urine Culture - Preliminary Culture exhibits no growth. Physical Exam Narrative GENERAL: cooperative HEENT: Atraumatic; normocephalic EYES; Anicteric, Normal Conjunctiva NECK; supple, normal thyroid, RESPIRATORY: Diminished to auscultation CARDIOVASCULAR: Regular S1 S2, GI: soft, normoactive bowel sounds, : Neobladder reconstruction with membrane,metanephroma through with she empties bladder. EXTREMITIES: No edema, no clubbing, MUSCULOSKELETAL: no muscle wasting NEURO: Awake; no lateralizing signs. 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 Recurrent complicated UTI secondary to self-catheterization with acute pyelonephritis ? Imaging studies on admission demonstrated Diffuse thickening of the bladder suggestive of cystitis. Moderate right hydroureteronephrosis, probably reflux. Mild left hydroureteronephrosis, probably reflux. Bilateral heterogeneous nephrogram of the kidneys, probably acute pyelonephritis. No obstructing stone or drainable abscess formation. Severe chronic atrophy of the left kidney. Patient was admitted to regular nursing floor started on Zosyn cultures sent result pending. Case was discussed with Dr. Clark with urology on admission ? 10/04/2024;Patient urine cultures exhibited no growth. This is not unexpected given her recent treatment at an outside hospital 2 weeks prior. Will defer discharge antibiotic therapy to ID. Patient antibiotic therapy has been de- escalated from Zosyn to ceftriaxone the day prior by ID 2. Class II obesity with BMI of 37 ? Weight loss advised 3. Anemia ? Secondary to chronic disorder monitoring H&H and transfuse if patient becomes symptomatic or hemoglobin falls below 7 4. Mild thrombocytopenia ? Will monitor with daily CBC with differential 5. DVT prophylaxis ? Bilateral SCDs Time spent in the patient's overall evaluation,decision-making process, review of diagnostic data, adjustment of management, discussion with other providers, nursing nursing and ancillary staff involved in patient's care documentation, 38 Minutes Charges/Coding Visit Charges Inpatient E&M: 07473 Subs Hosp L2 10/04/24 0933 Cosigner Signature (if applicable): CC: ~ Signed [facility]08-19-2025 Progress note Author Lisa Clark [facility] Note Date/Time October 03, 2024 4: 20pm [facility] Medical Records Department [address] [place] [address] Progress Note - Urology 10/03/24 1615 MR#: [id number] Acct: [id number] Name: LORA JONES Rep #:[id number] : 1990 34 From: Lisa Mathews PCP: EDWIN Campoverde Status:ADM IN [id number] Subjective Subjective The patient is feeling better today. She is having less abdominal pain but reports feeling bloated. She has had 2 bowel movements since yesterday. She is walking around the room, but not in hallways. Less fever. Overall better. No issues cathing. She is aware the plan is to follow up with [facility] for further evaluation and management. Objective Data Objective Data Vital Signs: Vital Signs Temp Pulse Resp BP Pulse Ox O2 Del Method 98.1 F 88 16 122/76 H 96 Room Air 10/03/24 14:43 10/03/24 14:43 10/03/24 14:43 10/03/24 14:43 10/03/24 14:43 10/03/24 14:43 Oxygen Delivery Method Room Air Weight: 201 lb 8.04 oz Body Mass Index (BMI) 37.0 Intake & Output: Intake and Output for Last 24 Hours 10/01/24 10/02/24 10/03/24 23:59 23:59 23:59 Intake Total 1700 / 1700 1407.5 / 1407.5 Output Total 350 / 350 1550 / 1550 1800 / 1800 Balance -350 / -350 150 / 150 -392.5 / -392.5 Lab / Micro Data 10/03/24 06:38 10/03/24 06:38 Labs: Laboratory Results - last 24 hr 10/03/24 06:38: WBC 9.6, RBC 3.70 L, Hgb 11.6 L, Hct 33.3 L, MCV 90.0, MCH 31.4,MCHC 34.8, RDW Std Deviation 38.6, RDW Coeff of Janelle 11.9, Plt Count 133 L, MPV 10.8, Immature Gran % (Auto) 0.400, Neut % (Auto) 72.4 H, Lymph % (Auto) 13.4 L,Chester % (Auto) 13.3 H, Eos % (Auto) 0.3, Baso % (Auto) 0.2, Absolute Neuts (auto)7.0, Absolute Lymphs (auto) 1.29, Nucleated RBC % 0, Sodium 138, Potassium 4.0, Chloride 108, Carbon Dioxide 20.3 L, Anion Gap 10, BUN 8, Creatinine 0.95, EstimCreat Clear Calc 89.41, Est GFR (MDRD) Non-Af 82, BUN/Creatinine Ratio 8.0 L, Glucose 96, Calcium 8.6 Micro: Microbiology 10/02/24 12:31 Urine Catheter - Catheter Urine Culture - Preliminary Culture exhibits no growth. Physical Exam Const alert, oriented x3 and no apparent distress General Appearance: cooperative and comfortable HEENT normocephalic and head/scalp atraumatic Neck supple General: normal visual inspection Chest inspection of chest normal Resp normal respiratory effort and normal air movement Cardio regular rate GI soft to palpation Skin no rashes or lesions noted, no jaundice, no petechiae and no mottling Neuro oriented x3 and CN's II-XII intact bilaterally Psych mental status grossly normal Assessment & Plan Assessment/Plan (1) Pyelonephritis: (2) Urinary retention: (3) Neurogenic bladder: (4) Overflow incontinence: (5) Left renal atrophy: (6) Complicated UTI (urinary tract infection): PLAN: Plan cultures negative complete antibiotics per infectious disease, note, there is no staghorn calculus she will follow up with [facility]. I have spoken with nursing to help make arrangements for an appointment there. in the meantime, continue cathing frequently via Mitrofanoff. thank you! 10/03/24 1620 <Electronically signed by Lisa Clark MD> Cosigner Signature (if applicable): CC: ~ Signed [facility] Work Phone: 1(859) 238-253708-19-2025 Progress note [facility] Medical Records Department [address] [place] [id number] Progress Note - Urology 10/03/24 1615 MR#: [id number] Acct: [id number] Name: LORA JONES Rep #:[id number] : 1990 34 From: Lisa Mathews PCP: EDWIN Campoverde Status:ADM IN Location: [facility] IE956-0 Subjective Subjective The patient is feeling better today. She is having less abdominal pain but reports feeling bloated.She has had 2 bowel movements since yesterday. She is walking around the room, but not in hallways.Less fever. Overall better. No issues cathing. She is aware the plan is to follow up with [facility] for further evaluation and management. Objective Data Objective Data Vital Signs: Vital Signs Temp Pulse Resp BP Pulse Ox O2 Del Method 98.1 F 88 16 122/76 H 96 Room Air 10/03/24 14:43 10/03/24 14:43 10/03/24 14:43 10/03/24 14:43 10/03/24 14:43 10/03/24 14:43 Oxygen Delivery Method Room Air Weight: 201 lb 8.04 oz Body Mass Index (BMI) 37.0 Intake & Output: Intake and Output for Last 24 Hours 10/01/24 10/02/24 10/03/24 23:59 23:59 23:59 Intake Total 1700 / 1700 1407.5 / 1407.5 Output Total 350 / 350 1550 / 1550 1800 / 1800 Balance -350 / -350 150 / 150 -392.5 / -392.5 Lab / Micro Data 10/03/24 06:38 10/03/24 06:38 Labs: Laboratory Results - last 24 hr 10/03/24 06:38: WBC 9.6, RBC 3.70 L, Hgb 11.6 L, Hct 33.3 L, MCV 90.0, MCH 31.4,MCHC 34.8, RDW Std Deviation 38.6, RDW Coeff of Janelle 11.9, Plt Count 133 L, MPV 10.8, Immature Gran % (Auto) 0.400, Neut% (Auto) 72.4 H, Lymph % (Auto) 13.4 L,Chester % (Auto) 13.3 H, Eos % (Auto) 0.3, Baso % (Auto) 0.2, Absolute Neuts (auto)7.0, Absolute Lymphs (auto) 1.29, Nucleated RBC % 0, Sodium 138, Potassium 4.0, Chloride 108, Carbon Dioxide 20.3 L, Anion Gap 10, BUN 8, Creatinine 0.95, EstimCreat Clear Calc 89.41, Est GFR (MDRD) Non-Af 82, BUN/Creatinine Ratio 8.0 L, Glucose 96, Calcium 8.6 Micro: Microbiology 10/02/24 12:31 Urine Catheter - Catheter Urine Culture - Preliminary Culture exhibits no growth. Physical Exam Const alert, oriented x3 and no apparent distress General Appearance: cooperative and comfortable HEENT normocephalic and head/scalp atraumatic Neck supple General: normal visual inspection Chest inspection of chest normal Resp normal respiratory effort and normal air movement Cardio regular rate GI soft to palpation Skin no rashes or lesions noted, no jaundice, no petechiae and no mottling Neuro oriented x3 and CN's II-XII intact bilaterally Psych mental status grossly normal Assessment & Plan Assessment/Plan (1) Pyelonephritis: (2) Urinary retention: (3) Neurogenic bladder: (4) Overflow incontinence: (5) Left renal atrophy: (6) Complicated UTI (urinary tract infection): PLAN: Plan cultures negative complete antibiotics per infectious disease, note, there is no staghorn calculus she will follow up with [facility]. I have spoken with nursing to help make arrangements for an appointment there. in the meantime, continue cathing frequently via [employer] Labs[employer]fan[employer]. thank you! 10/03/24 1620 Cosigner Signature (if applicable): CC: ~ Signed [facility]08-19-2025 Progress note Author Mauricio Levine [facility] Note Date/Time October 03, 2024 10 :22am [facility] Medical Records Department [address] [place] [address] Progress Note - Hospitalist 10/03/24 0838 MR#: [id number] Acct: [id number] Name: LORA JONES Rep #:[id number] : 1990 34 From: Mauricio Levine MD PCP: EDWIN Campoverde Status:ADM IN [facility] Reason for Visit Chief Complaint: Weakness, fever, concern for UTI Subjective Subjective 34-year-old female with 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11 presented with weakness lower abdominal and back pain and intermittent fever Objective Data Objective Data Vital Signs: Vital Signs Temp Pulse Resp BP Pulse Ox O2 Del Method 98.3 F 89 18 118/76 97 Room Air 10/03/24 08:15 10/03/24 08:15 10/03/24 08:15 10/03/24 08:15 10/03/24 08:15 10/03/24 08:18 Oxygen Delivery Method Room Air Weight: 91.4 kg Body Mass Index (BMI) 37.0 Intake & Output: Intake and Output for Last 24 Hours 10/01/24 10/02/24 10/03/24 23:59 23:59 23:59 Intake Total 1700 / 1700 1307.5 / 1307.5 Output Total 350 / 350 1550 / 1550 600 / 600 Balance -350 / -350 150 / 150 707.5 / 707.5 Lab / Micro Data 10/03/24 06:38 10/03/24 06:38 Labs: Laboratory Results - last 24 hr 10/03/24 06:38: WBC 9.6, RBC 3.70 L, Hgb 11.6 L, Hct 33.3 L, MCV 90.0, MCH 31.4,MCHC 34.8, RDW Std Deviation 38.6, RDW Coeff of Janelle 11.9, Plt Count 133 L, MPV 10.8, Immature Gran % (Auto) 0.400, Neut % (Auto) 72.4 H, Lymph % (Auto) 13.4 L,Chester % (Auto) 13.3 H, Eos % (Auto) 0.3, Baso % (Auto) 0.2, Absolute Neuts (auto)7.0, Absolute Lymphs (auto) 1.29, Nucleated RBC % 0, Sodium 138, Potassium 4.0, Chloride 108, Carbon Dioxide 20.3 L, Anion Gap 10, BUN 8, Creatinine 0.95, EstimCreat Clear Calc 89.41, Est GFR (MDRD) Non-Af 82, BUN/Creatinine Ratio 8.0 L, Glucose 96, Calcium 8.6 Physical Exam Narrative GENERAL: cooperative HEENT: Atraumatic; normocephalic EYES; Anicteric, Normal Conjunctiva NECK; supple, normal thyroid, RESPIRATORY: Diminished to auscultation CARDIOVASCULAR: Regular S1 S2, GI: soft, normoactive bowel sounds, : Neobladder reconstruction with membrane,metanephroma through with she empties bladder. EXTREMITIES: No edema, no clubbing, MUSCULOSKELETAL: no muscle wasting NEURO: Awake; no lateralizing signs. 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 Recurrent complicated UTI secondary to self-catheterization with acute pyelonephritis ? Imaging studies on admission demonstrated Diffuse thickening of the bladder suggestive of cystitis. Moderate right hydroureteronephrosis, probably reflux. Mild left hydroureteronephrosis, probably reflux. Bilateral heterogeneous nephrogram of the kidneys, probably acute pyelonephritis. No obstructing stone or drainable abscess formation. Severe chronic atrophy of the left kidney. Patient was admitted to regular nursing floor started on Zosyn cultures sent result pending. Case was discussed with Dr. Clark with urology on admission 2. Class II obesity with BMI of 37 ? Weight loss advised 3. Anemia ? Secondary to chronic disorder monitoring H&H and transfuse if patient becomes symptomatic or hemoglobin falls below 7 4. Mild thrombocytopenia ? Will monitor with daily CBC with differential 5. DVT prophylaxis ? Bilateral SCDs Time spent in the patient's overall evaluation,decision-making process, review of diagnostic data, adjustment of management, discussion with other providers, nursing nursing and ancillary staff involved in patient's care documentation, 38 Minutes Charges/Coding Visit Charges Inpatient E&M: 58460 Subs Hosp L2 10/03/24 1022 <Electronically signed by Mauricio Levine MD> Cosigner Signature (if applicable): CC: ~ Signed [facility] Work Phone: 1(445) 558-145608-19-2025 Progress note Author Philipp Qureshi [facility] Note Date/Time October 04, 2024 3: 00pm [facility] Medical Records Department [address] [place] [address] Progress Note - Infect Disease 10/03/24 1020 MR#: [id number] Acct: [id number] Name: LORA JONES Rep #:[id number] : 1990 34 From: Philipp laguerre MD PCP: EDWIN Campovedre Status:ADM IN [id number] Physical Exam Narrative Feeling better, abd pain/flank pain improved, no fever. Const alert and no apparent distress General Appearance: cooperative Resp normal air movement and clear to auscultation bilaterally Cardio regular rate and regular rhythm GI soft to palpation, non-tender and non-distended Skin no rashes or lesions noted ID ID: Route of nutrition/ use of supplements: [] Nutritional Intake: [] IV Site: [] Kurtz Catheter: [] Assessment & Plan Assessment/Plan (1) Complicated UTI (urinary tract infection): PLAN: Complicated urologic history. CT shows staghorn calculi. Seen by urology. Ecoli uti at [facility] August (R to amp, I to unasyn). Ucx here neg, but had been on abx prior to it being collected. Will narrow to ceftriaxone. Will follow 10/03/24 1021 <Electronically signed by Philipp Qureshi MD> Cosigner Signature (if applicable): CC: ~ Signed ADDENDUM by Dr. Philipp Qureshi MD on 10/04/24 at 1500 Addendum correction, no obstructing stone seen 10/04/24 1500<Electronically signed by Philipp Qureshi MD> Cosigner Signature (if applicable): cc: ~* Signed [facility] Work Phone: 1(141) 643-587908-19-2025 Consult note Author Lisa Clark [facility] Note Date/Time October 03, 2024 8: 37am [facility] Medical Records Department [address] [place] [address] Consultation 10/02/24 1625 MR#: [id number] Acct: [id number] Name: LORA JONES Rep #:[id number] : 1990 34 From: Lisa Mathews PCP: EDWIN Campoverde Status:ADM IN [facility] Assessment & Plan Assessment/Plan (1) Complicated UTI (urinary tract infection): (2) Neurogenic bladder: (3) Urinary retention: (4) Overflow incontinence: (5) Hydroureter, right: (6) Pyelonephritis: (7) Left renal atrophy: PLAN: Plan Await urine culture, Continue antibiotics Recommend frequent cathing via Mitrofanoff every 2 hours. Obtain records from [facility] Given this new finding of urethral congenital malformation, would recommend further evaluation with possible surgical interventions in [place]. Plan to referfor follow-up as outpatient as long as her pyelonephritis improves with antibiotic administration. HPI Consult Data Date of Consult: 10/03/24 HPI Narrative Reason for Consultation: Urinary tract infection HPI Narrative: LORA JONES, is a 34 F who was admitted from an outside institution with a diagnosis of urinary tract infection. She is with her mom at bedside. The patient apparently underwent several urologic procedures as a young child. 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 She does not recall a history of neurogenic bladder. There is no history of her having spina bifida or sacral agenesis. They are not certain what diagnosis or what etiology led them to starting intermittent catheterization. They recall that they were offered a procedure through the urology office at [facility] and were told to call when they were ready toschedule. At that time they decided to continue without further management witha physician. She has been cathing herself approximately 4 times a day through her Mitrofanoff. She leaks from her urethra and wears at least 5 pull- ups daily. She has not had any imaging in over 10 years. She has not had a urinarytract infection that she can recall in over 10 years. The pharmacy has been supplying her catheters. She is not sexually active. She has never had a . Patient nor mom recall any overactive bladder medications to help manage bladder pressure previously. They seemed surprised to hear that her left kidney has essentially atrophied to likely nonfunctioning. We discussed that pressure in the bladder is a very important measurement that we used to determine if her kidneys are at risk for decrease in function. She has not not had regular cystoscopic evaluation to ensure no development of bladder cancer. We had a discussion thatshe needs to make sure she maintains accurate follow-up annually at minimum withan annual renal ultrasound and cystoscopy. Today she reports she is not having any pain aside from some abdominal discomfort and distention. She reports that she does need to cath as she has not done that in a few hours, cathed for 600cc. We discussed placement of urethral kurtz. At the mention of this, mom recalls that there is an issue with her urethra, and that there is more than one, and that there is always trouble with placing a catheter. The pediatric urologist was always able to do it, but he was the only one. [facility] Medical History (Updated 10/02/24 @ 17:[address] Lisa Clark MD) Pyelonephritis Hydroureter, right Overflow incontinence Urinary retention Neurogenic bladder UTI (urinary tract infection) Medical History unable to obtain unable to obtain (Patient and mom are unaware of her history) Home Medications ?Medication ?Instructions ?Recorded ?Last Taken ?Type NK 10/01/24 Unknown History Allergy/AdvReac Type Severity Reaction Status Date / Time No Known Allergies Allergy Verified 10/01/24 20:11 Social History Smoking Status: Never smoker ROS Constitutional Constitutional: Reports fatigue and fever(s) Eyes Eyes: Reports systems reviewed and no addt'l complaints, except as documented ENT HEENT: Reports systems reviewed and no addt'l complaints, except as documented Cardiovascular Cardiovascular: Reports systems reviewed and no addt'l complaints, except as documented; Denies chest pain, nausea or vomiting Respiratory/Chest Respiratory/Chest: Denies dyspnea or inability to speak Gastrointestinal Gastrointestinal: Reports abdominal pain; Denies constipation or diarrhea Genitourinary Genitourinary: Reports difficulty urinating, dribbling and urinary incontinence;Denies dysuria, flank pain, hematuria or low back pain Musculoskeletal Musculoskeletal: Reports systems reviewed and no addt'l complaints, except as documented Integumentary Integumentary: Reports systems reviewed and no addt'l complaints, except as documented Neurologic Neurologic: Reports systems reviewed and no addt'l complaints, except as documented Psychiatric Psychiatric: Reports systems reviewed and no addt'l complaints, except as documented Endocrine Endocrinology: Reports systems reviewed and no addt'l complaints, except as documented Hematologic/Lymphatic Hematologic/Lymphatic: Reports systems reviewed and no addt'l complaints, exceptas documented Allergic/Immunologic Allergic/Immunologic: Reports systems reviewed and no addt'l complaints, except as documented Physical Exam Narrative An attempt was made at placement of a 16 Belgian urethral Kurtz catheter. On visualization of the urethra, there are 2 openings stacked vertically. Neither opening allowed access to the urinary bladder. After several gentle attempts, the process was aborted. Const alert, oriented x3 and no apparent distress General Appearance: cooperative and comfortable HEENT normocephalic, head/scalp atraumatic, hearing grossly normal bilaterally and moist oral mucous membranes Eyes General Eye: normal appearance of both eyes Neck supple General: normal visual inspection and trachea midline Chest inspection of chest normal Chest: symmetrical chest wall rise Resp normal respiratory effort, normal air movement, no retractions and no use of accessory muscles Cardio regular rate GI soft to palpation Inspection: abdominal distention Narrative: Mitrofanoff stoma appears healthy Back/Spine no CVA tenderness Skin no rashes or lesions noted, no wounds, no jaundice, no petechiae and no mottling Neuro oriented x3, CN's II-XII intact bilaterally and moves all extremities Psych mental status grossly normal and thought process normal Lab / Micro Data Attestation: I reviewed the patient's lab results. 10/03/24 06:38 10/03/24 06:38 Labs: Laboratory Results - last 24 hr 10/02/24 05:08: WBC 10.8, RBC 3.69 L, Hgb 11.7 L, Hct 33.2 L, MCV 90.0, MCH 31.7, MCHC 35.2, RDW Std Deviation 38.1, RDW Coeff of Janelle 11.6, Plt Count 128 L,MPV 11.1, Immature Gran % (Auto) 0.600, Neut % (Auto) 76.6 H, Lymph % (Auto) 5.9L, Chester % (Auto) 16.6 H, Eos % (Auto) 0.0, Baso % (Auto) 0.3, Absolute Neuts (auto) 8.3 H, Absolute Lymphs (auto) 0.64 L, Nucleated RBC % 0, Differential Comment SCANNED, Platelet Estimate SLT DEC, RBC Morphology NORM C+C, Sodium 134,Potassium 3.4, Chloride 104, Carbon Dioxide 18.7 L, Anion Gap 11, BUN 8, Creatinine 1.05, Estim Creat Clear Calc 80.90, Est GFR (MDRD) Non-Af 72, BUN/Creatinine Ratio 7.5 L, Glucose 140 H, Calcium 7.9 Imaging Radiology Impression Imaging reviewed. Abdomen/Pelvis CT 10/02/24 05:55 IMPRESSION: Diffuse thickening of the bladder suggestive of cystitis. Moderate right hydroureteronephrosis, probably reflux. Mild left hydroureteronephrosis, probably reflux. Bilateral heterogeneous nephrogram of the kidneys, probably acute pyelonephritis. No obstructing stone or drainable abscess formation. Severe chronic atrophy of the left kidney. Mild bilateral basilar atelectatic pulmonary changes. Well-defined 5 mm simple cyst is noted in the segment 4B of the liver. No follow-up is needed. Mild amount of reactive free pelvic fluid. [facility] 10/03/24 0837 <Electronically signed by Lisa Clark MD> Cosigner Signature (if applicable): CC: EDWIN Campoverde~ Signed [facility] Work Phone: 1(818) 821-190208-19-2025 Progress note [facility] Medical Records Department [address] [place] [address] Progress Note - Hospitalist 10/03/2438 MR#: [id number] Acct: [id number] Name: LORA JONES Rep #:[id number] : 1990 34 From: Mauricio Levine MD PCP: EDWIN Campoverde Status:ADM IN Location: [place] [address] Reason for Visit Chief Complaint: Weakness, fever, concern for UTI Subjective Subjective 34-year-old female with 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11 presented with weakness lower abdominal and back pain and intermittent fever Objective Data Objective Data Vital Signs: Vital Signs Temp Pulse Resp BP Pulse Ox O2 Del Method 98.3 F 89 18 118/76 97 Room Air 10/03/24 08:15 10/03/24 08:15 10/03/24 08:15 10/03/24 08:15 10/03/24 08:15 10/03/24 08:18 Oxygen Delivery Method Room Air Weight: 91.4 kg Body Mass Index (BMI) 37.0 Intake & Output: Intake and Output for Last 24 Hours 10/01/24 10/02/24 10/03/24 23:59 23:59 23:59 Intake Total 1700 / 1700 1307.5 / 1307.5 Output Total 350 / 350 1550 / 1550 600 / 600 Balance -350 / -350 150 / 150 707.5 / 707.5 Lab / Micro Data 10/03/24 06:38 10/03/24 06:38 Labs: Laboratory Results - last 24 hr 10/03/24 06:38: WBC 9.6, RBC 3.70 L, Hgb 11.6 L, Hct 33.3 L, MCV 90.0, MCH 31.4,MCHC 34.8, RDW Std Deviation 38.6, RDW Coeff of Janelle 11.9, Plt Count 133 L, MPV 10.8, Immature Gran % (Auto) 0.400, Neut% (Auto) 72.4 H, Lymph % (Auto) 13.4 L,Chester % (Auto) 13.3 H, Eos % (Auto) 0.3, Baso % (Auto) 0.2, Absolute Neuts (auto)7.0, Absolute Lymphs (auto) 1.29, Nucleated RBC % 0, Sodium 138, Potassium 4.0, Chloride 108, Carbon Dioxide 20.3 L, Anion Gap 10, BUN 8, Creatinine 0.95, EstimCreat Clear Calc 89.41, Est GFR (MDRD) Non-Af 82, BUN/Creatinine Ratio 8.0 L, Glucose 96, Calcium 8.6 Physical Exam Narrative GENERAL: cooperative HEENT: Atraumatic; normocephalic EYES; Anicteric, Normal Conjunctiva NECK; supple, normal thyroid, RESPIRATORY: Diminished to auscultation CARDIOVASCULAR: Regular S1 S2, GI: soft, normoactive bowel sounds, : Neobladder reconstruction with membrane,metanephroma through with she empties bladder. EXTREMITIES: No edema, no clubbing, MUSCULOSKELETAL: no muscle wasting NEURO: Awake; no lateralizing signs. 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 Recurrent complicated UTI secondary to self-catheterization with acute pyelonephritis ? Imaging studies on admission demonstrated Diffuse thickening of the bladder suggestive of cystitis. Moderate right hydroureteronephrosis, probably reflux. Mild left hydroureteronephrosis, probably reflux. Bilateral heterogeneous nephrogram of the kidneys, probably acute pyelonephritis. No obstructing stone or drainable abscess formation. Severe chronic atrophy of the left kidney. Patient was admitted to regular nursing floor started on Zosyn cultures sent result pending. Case was discussed with Dr. Clark with urology on admission 2. Class II obesity with BMI of 37 ? Weight loss advised 3. Anemia ? Secondary to chronic disorder monitoring H&H and transfuse if patient becomes symptomatic or hemoglobin falls below 7 4. Mild thrombocytopenia ? Will monitor with daily CBC with differential 5. DVT prophylaxis ? Bilateral SCDs Time spent in the patient's overall evaluation,decision-making process, review of diagnostic data, adjustment of management, discussion with other providers, nursing nursing and ancillary staff involved in patient's care documentation, 38 Minutes Charges/Coding Visit Charges Inpatient E&M: 07243 Subs Hosp L2 10/03/24 1022 Cosigner Signature (if applicable): CC: ~ Signed [facility]08-19-2025 Consult note [facility] Medical Records Department [address] [place] [address] Consultation 10/02/24 1625 MR#: [id number] Acct: [id number] Name: LORA JONES Rep #:[id number] : 1990 34 From: Lisa Mathews PCP: EDWIN Campoverde Status:ADM IN Location: [place] IQ900-2 Assessment & Plan Assessment/Plan (1) Complicated UTI (urinary tract infection): (2) Neurogenic bladder: (3) Urinary retention: (4) Overflow incontinence: (5) Hydroureter, right: (6) Pyelonephritis: (7) Left renal atrophy: PLAN: Plan Await urine culture, Continue antibiotics Recommend frequent cathing via Mitrofanoff every 2 hours. Obtain records from [facility] Given this new finding of urethral congenital malformation, would recommend further evaluation withpossible surgical interventions in [place]. Plan to referfor follow-up as outpatient as long as her pyelonephritis improves with antibiotic administration. HPI Consult Data Date of Consult: 10/03/24 HPI Narrative Reason for Consultation: Urinary tract infection HPI Narrative: LORA JONES, is a 34 F who was admitted from an outside institution with a diagnosis of urinary tract infection. She is with her mom at bedside. The patient apparently underwent several urologic procedures as a young child. 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 She does not recall a history of neurogenic bladder. There is no history of her having spina bifida or sacral agenesis. They are not certain what diagnosis or what etiology led them to starting intermittent catheterization. They recall that they were offered a procedure through the urology office at [facility] and were told to call when they were ready toschedule. At that time they decided to continue without further managementwitha physician. She has been cathing herself approximately 4 times a day through her Mitrofanoff. She leaks from her urethra and wears at least 5 pull-ups daily. She has not had any imaging in over 10 years. She has not had a urinarytract infection that she can recall in over 10 years. The pharmacy has been supplying her catheters. She is not sexually active. She has never had a . Patient nor mom recall any overactive bladder medications to help manage bladder pressure previously. They seemed surprised to hear that herleft kidney has essentially atrophied to likely nonfunctioning. We discussed that pressure in the bladder is a very important measurement that we used to determine if her kidneys are at risk for decrease in function. She has not not had regular cystoscopic evaluation to ensure no development of bladder cancer. We had a discussion thatshe needs to make sure she maintains accurate follow-up annually at minimum withan annual renal ultrasound and cystoscopy. Today she reports she is not having any pain aside from some abdominal discomfort and distention. She reports that she does need to cath as she has not done that in a few hours, cathed for 600cc. We discussed placement of urethral kurtz. At the mention of this, mom recalls that there is an issue with her urethra, and that there is more than one, and that there is always trouble with placing a catheter. The pediatric urologist was always able to do it, but he was the only one. [facility] Medical History (Updated 10/02/24 @ 17:[address] Lisa Clark MD) Pyelonephritis Hydroureter, right Overflow incontinence Urinary retention Neurogenic bladder UTI (urinary tract infection) Medical History unable to obtain unable to obtain (Patient and mom are unaware of her history) Home Medications ?Medication ?Instructions ?Recorded ?Last Taken ?Type NK 10/01/24 Unknown History Allergy/AdvReac Type Severity Reaction Status Date / Time No Known Allergies Allergy Verified 10/01/24 20:11 Social History Smoking Status: Never smoker ROS Constitutional Constitutional: Reports fatigue and fever(s) Eyes Eyes: Reports systems reviewed and no addt'l complaints, except as documented ENT HEENT: Reports systems reviewed and no addt'l complaints, except as documented Cardiovascular Cardiovascular: Reports systems reviewed and no addt'l complaints, except as documented; Denies chest pain, nausea or vomiting Respiratory/Chest Respiratory/Chest: Denies dyspnea or inability to speak Gastrointestinal Gastrointestinal: Reports abdominal pain; Denies constipation or diarrhea Genitourinary Genitourinary: Reports difficulty urinating, dribbling and urinary incontinence;Denies dysuria, flank pain, hematuria or low back pain Musculoskeletal Musculoskeletal: Reports systems reviewed and no addt'l complaints, except as documented Integumentary Integumentary: Reports systems reviewed and no addt'l complaints, except as documented Neurologic Neurologic: Reports systems reviewed and no addt'l complaints, except as documented Psychiatric Psychiatric: Reports systems reviewed and no addt'l complaints, except as documented Endocrine Endocrinology: Reports systems reviewed and no addt'l complaints, except as documented Hematologic/Lymphatic Hematologic/Lymphatic: Reports systems reviewed and no addt'l complaints, exceptas documented Allergic/Immunologic Allergic/Immunologic: Reports systems reviewed and no addt'l complaints, except as documented Physical Exam Narrative An attempt was made at placement of a 16 Belgian urethral Kurtz catheter. On visualization of the urethra, there are 2 openings stacked vertically. Neither opening allowed access to the urinary bladder. After several gentle attempts, the process was aborted. Const alert, oriented x3 and no apparent distress General Appearance: cooperative and comfortable HEENT normocephalic, head/scalp atraumatic, hearing grossly normal bilaterally and moist oral mucous membranes Eyes General Eye: normal appearance of both eyes Neck supple General: normal visual inspection and trachea midline Chest inspection of chest normal Chest: symmetrical chest wall rise Resp normal respiratory effort, normal air movement, no retractions and no use of accessory muscles Cardio regular rate GI soft to palpation Inspection: abdominal distention Narrative: Mitrofanoff stoma appears healthy Back/Spine no CVA tenderness Skin no rashes or lesions noted, no wounds, no jaundice, no petechiae and no mottling Neuro oriented x3, CN's II-XII intact bilaterally and moves all extremities Psych mental status grossly normal and thought process normal Lab / Micro Data Attestation: I reviewed the patient's lab results. 10/03/24 06:38 10/03/24 06:38 Labs: Laboratory Results - last 24 hr 10/02/24 05:08: WBC 10.8, RBC 3.69 L, Hgb 11.7 L, Hct 33.2 L, MCV 90.0, MCH 31.7, MCHC 35.2, RDW Std Deviation 38.1, RDW Coeff of Janelle 11.6, Plt Count 128 L,MPV 11.1, Immature Gran % (Auto) 0.600, Neut % (Auto) 76.6 H, Lymph % (Auto) 5.9L, Chester % (Auto) 16.6 H, Eos % (Auto) 0.0, Baso % (Auto) 0.3, Absolute Neuts (auto) 8.3 H, Absolute Lymphs (auto) 0.64 L, Nucleated RBC % 0, Differential Comment SCANNED, Platelet Estimate SLT DEC, RBC Morphology NORM C+C, Sodium 134,Potassium 3.4, Chloride 104, Carbon Dioxide 18.7 L, Anion Gap 11, BUN 8, Creatinine 1.05, Estim Creat Clear Calc 80.90, Est GFR (MDRD) Non-Af 72, BUN/Creatinine Ratio 7.5 L, Glucose 140 H, Calcium 7.9 Imaging Radiology Impression Imaging reviewed. Abdomen/Pelvis CT 10/02/24 05:55 IMPRESSION: Diffuse thickening of the bladder suggestive of cystitis. Moderate right hydroureteronephrosis, probably reflux. Mild left hydroureteronephrosis, probably reflux. Bilateral heterogeneous nephrogram of the kidneys, probably acute pyelonephritis. No obstructing stone or drainable abscess formation. Severe chronic atrophy of the left kidney. Mild bilateral basilar atelectatic pulmonary changes. Well-defined 5 mm simple cyst is noted in the segment 4B of the liver. No follow-up is needed. Mild amount of reactive free pelvic fluid. Reading Location: [facility] 10/03/24 0837 Cosigner Signature (if applicable): CC: EDWIN Campoverde~ Signed [facility]08-18-2025 [facility] Medical Records Department [address] [place] [address] Consultation 10/02/24 1625 MR#: [id number] Acct: [id number] Name: LORA JONES Rep #: [id number] : 1990 34 From: Lisa Clark MD PCP: EDWIN Campoverde Status:ADM IN Location: [facility] [id number] Assessment Plan Assessment/Plan (1) Complicated UTI (urinary tract infection): (2) Neurogenic bladder: (3) Urinary retention: (4) Overflow incontinence: (5) Hydroureter, right: (6) Pyelonephritis: (7) Left renal atrophy: PLAN: Plan Await urine culture, Continue antibiotics Recommend frequent cathing via Mitrofanoff every 2 hours. Obtain records from [facility] Given this new finding of urethral congenital malformation, would recommend further evaluation with possible surgical interventions in [place]. Plan to refer for follow-up as outpatient as long as her pyelonephritis improves with antibiotic administration. HPI Consult Data Date of Consult: 10/03/24 HPI Narrative Reason for Consultation: Urinary tract infection HPI Narrative: LORA JONES, is a 34 F who was admitted from an outside institution with a diagnosis of urinary tract infection. She is with her mom at bedside. The patient apparently underwent several urologic procedures as a young child. 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 She does not recall a history of neurogenic bladder. There is no history of her having spina bifida or sacral agenesis. They are not certain what diagnosis or what etiology led them to starting intermittent catheterization. They recall that they were offered a procedure through the urology office at [facility] and were told to call when they were ready to schedule. At that time they decided to continue without further management with a physician. She has been cathing herself approximately 4 times a day through her Mitrofanoff. She leaks from her urethra and wears at least 5 pull- ups daily. She has not had any imaging in over 10 years. She has not had a urinary tract infection that she can recall in over 10 years. The pharmacy has been supplying her catheters. She is not sexually active. She has never had a . Patient nor mom recall any overactive bladder medications to help manage bladder pressure previously. They seemed surprised to hear that her left kidney has essentially atrophied to likely nonfunctioning. We discussed that pressure in the bladder is a very important measurement that we used to determine if her kidneys are at risk for decrease in function. She has not not had regular cystoscopic evaluation to ensure no development of bladder cancer. We had a discussion that she needs to make sure she maintains accurate follow-up annually at minimum with an annual renal ultrasound and cystoscopy. Today she reports she is not having any pain aside from some abdominal discomfort and distention. She reports that she does need to cath as she has not done that in a few hours, cathed for 600cc. We discussed placement of urethral kurtz. At the mention of this, mom recalls that there is an issue with her urethra, and that there is more than one, and that there is always trouble with placing a catheter. The pediatric urologist was always able to do it, but he was the only one. [facility] Medical History (Updated 10/02/24 @ 17:[address] Lisa Clark MD) Pyelonephritis Hydroureter, right Overflow incontinence Urinary retention Neurogenic bladder UTI (urinary tract infection) Medical History unable to obtain unable to obtain (Patient and mom are unaware of her history) Home Medications ???Medication ???Instructions ???Recorded ???Last Taken ???Type NK 10/01/24 Unknown History Allergy/AdvReac Type Severity Reaction Status Date / Time No Known Allergies Allergy Verified 10/01/24 20:11 Social History Smoking Status: Never smoker ROS Constitutional Constitutional: Reports fatigue and fever(s) Eyes Eyes: Reports systems reviewed and no addt'l complaints, except as documented ENT HEENT: Reports systems reviewed and no addt'l complaints, except as documented Cardiovascular Cardiovascular: Reports systems reviewed and no addt'l complaints, except as documented; Denies chest pain, nausea or vomiting Respiratory/Chest Respiratory/Chest: Denies dyspnea or inability to speak Gastrointestinal Gastrointestinal: Reports abdominal pain; Denies constipation or diarrhea Genitourinary Genitourinary: Reports difficulty urinating, dribbling and urinary incontinence; Denies dysuria, flank pain, hematuria or low back pain Musculoskeletal Musculoskeletal: Reports systems reviewed and no addt'l complaints, except as documented Integumentary Integumentary: Reports systems revie (more content not included)...[facility]08-18-2025 Consult note Author Philipp Qureshi [facility] Note Date/Time October 04, 2024 3: 00pm [facility] Medical Records Department [address] [place] [address] Consultation - Infectious Dx 10/02/24 1259 MR#: [id number] Acct: [id number] Name: LORA JONES Rep #:[id number] : 1990 34 From: Philipp laguerre MD PCP: EDWIN Campoverde Status:ADM IN Location: MS3 [id number] Assessment & Plan Assessment/Plan (1) Complicated UTI (urinary tract infection): PLAN: Complicated urologic history. CT shows staghorn calculi. Will consult urology. Reviewed [place] records, I do not see a ucx pending in their system yet. Will order one from here and request [facility] records. Will follow, thank you HPI Consult Data Date of Consult: 10/02/24 HPI Narrative Reason for Consultation: uti HPI Narrative: LORA JONES, is a 34 F who presented with 2-3 days lower back pain, lowerabd pain, weakness, fever, headache, not feeling well. Sees urologist at [facility], has suprapubic stoma. Recent admit to [facility] a month ago, sent home with po abx for uti. Now presented to [place], transferred here, on zosyn. Feelinga little better. Full ROS performed and neg except as noted above. [facility] Medical History UTI (urinary tract infection) Home Medications ?Medication ?Instructions ?Recorded ?Last Taken ?Type NK 10/01/24 Unknown History Allergy/AdvReac Type Severity Reaction Status Date / Time No Known Allergies Allergy Verified 10/01/24 20:11 Social History Smoking Status: Never smoker Physical Exam Const alert, oriented x3 and no apparent distress General Appearance: cooperative HEENT normocephalic and head/scalp atraumatic Eyes PERRL and EOMs intact bilaterally Neck supple and No nodes Resp normal air movement and clear to auscultation bilaterally Cardio regular rate and regular rhythm GI soft to palpation, non-tender and non-distended GI Narrative: mild bilat flank soreness Extremity General Extremity: Negative for edema Skin no rashes or lesions noted Neuro CN's II-XII intact bilaterally Lab / Micro Data Attestation: I reviewed the patient's lab results. 10/02/24 05:08 10/02/24 05:08 Labs: Laboratory Results - last 24 hr 10/02/24 05:08: WBC 10.8, RBC 3.69 L, Hgb 11.7 L, Hct 33.2 L, MCV 90.0, MCH 31.7, MCHC 35.2, RDW Std Deviation 38.1, RDW Coeff of Janelle 11.6, Plt Count 128 L,MPV 11.1, Immature Gran % (Auto) 0.600, Neut % (Auto) 76.6 H, Lymph % (Auto) 5.9L, Chester % (Auto) 16.6 H, Eos % (Auto) 0.0, Baso % (Auto) 0.3, Absolute Neuts (auto) 8.3 H, Absolute Lymphs (auto) 0.64 L, Nucleated RBC % 0, Differential Comment SCANNED, Platelet Estimate SLT DEC, RBC Morphology NORM C+C, Sodium 134,Potassium 3.4, Chloride 104, Carbon Dioxide 18.7 L, Anion Gap 11, BUN 8, Creatinine 1.05, Estim Creat Clear Calc 80.90, Est GFR (MDRD) Non-Af 72, BUN/Creatinine Ratio 7.5 L, Glucose 140 H, Calcium 7.9 Imaging Radiology Impression Abdomen/Pelvis CT 10/02/24 05:55 IMPRESSION: Diffuse thickening of the bladder suggestive of cystitis. Moderate right hydroureteronephrosis, probably reflux. Mild left hydroureteronephrosis, probably reflux. Bilateral heterogeneous nephrogram of the kidneys, probably acute pyelonephritis. No obstructing stone or drainable abscess formation. Severe chronic atrophy of the left kidney. Mild bilateral basilar atelectatic pulmonary changes. Well-defined 5 mm simple cyst is noted in the segment 4B of the liver. No follow-up is needed. Mild amount of reactive free pelvic fluid. Reading Location: [place] [address] 10/02/24 1302 <Electronically signed by Philipp Qureshi MD> Cosigner Signature (if applicable): CC: EDWIN Campoverde~ Signed ADDENDUM by Dr. Philipp Qureshi MD on 10/04/24 at 1500 Addendum correction, no obstructing stone seen 10/04/24 1500<Electronically signed by Philipp Qureshi MD> Cosigner Signature (if applicable): cc: EDWIN Campoverde ~* Signed [facility] Work Phone: 1(212) 828-149208-18-2025 Progress note Author Tom Cortez [facility] Note Date/Time October 02, 2024 12 :55pm [facility] Medical Records Department [address] [place] [address] Progress Note - Hospitalist 10/02/24 1008 MR#: [id number] Acct: [id number] Name: LORA JONES Rep #:[id number] : 1990 34 From: Tom Mathews PCP: EDWIN Campoverde Status:ADM IN [id number] Reason for Visit Chief Complaint: Weakness, fever, concern for UTI Objective Data Objective Data Vital Signs: Vital Signs Temp Pulse Resp BP Pulse Ox O2 Del Method 98 F 97 18 101/69 98 Room Air 10/02/24 08:26 10/02/24 08:26 10/02/24 08:26 10/02/24 08:26 10/02/24 08:26 10/02/24 08:30 Oxygen Delivery Method Room Air Weight: 201 lb 8.04 oz Body Mass Index (BMI) 37.0 Intake & Output: Intake and Output for Last 24 Hours 09/30/24 10/01/24 10/02/24 23:59 23:59 23:59 Intake Total 1100 / 1100 Output Total 350 / 350 200 / 200 Balance -350 / -350 900 / 900 Lab / Micro Data 10/02/24 05:08 10/02/24 05:08 Labs: Laboratory Results - last 24 hr 10/02/24 05:08: WBC 10.8, RBC 3.69 L, Hgb 11.7 L, Hct 33.2 L, MCV 90.0, MCH 31.7, MCHC 35.2, RDW Std Deviation 38.1, RDW Coeff of Janelle 11.6, Plt Count 128 L,MPV 11.1, Immature Gran % (Auto) 0.600, Neut % (Auto) 76.6 H, Lymph % (Auto) 5.9L, Chester % (Auto) 16.6 H, Eos % (Auto) 0.0, Baso % (Auto) 0.3, Absolute Neuts (auto) 8.3 H, Absolute Lymphs (auto) 0.64 L, Nucleated RBC % 0, Differential Comment SCANNED, Platelet Estimate SLT DEC, RBC Morphology NORM C+C, Sodium 134,Potassium 3.4, Chloride 104, Carbon Dioxide 18.7 L, Anion Gap 11, BUN 8, Creatinine 1.05, Estim Creat Clear Calc 80.90, Est GFR (MDRD) Non-Af 72, BUN/Creatinine Ratio 7.5 L, Glucose 140 H, Calcium 7.9 Radiography Diagnostic Testing: Radiology Impression Abdomen/Pelvis CT 10/02/24 05:55 IMPRESSION: Diffuse thickening of the bladder suggestive of cystitis. Moderate right hydroureteronephrosis, probably reflux. Mild left hydroureteronephrosis, probably reflux. Bilateral heterogeneous nephrogram of the kidneys, probably acute pyelonephritis. No obstructing stone or drainable abscess formation. Severe chronic atrophy of the left kidney. Mild bilateral basilar atelectatic pulmonary changes. Well-defined 5 mm simple cyst is noted in the segment 4B of the liver. No follow-up is needed. Mild amount of reactive free pelvic fluid. Reading Location: [place] [address] Physical Exam Narrative Seen and examined. Discussed with the patient's mother in the room. She said patient had bladder reconstruction surgery at the age of 11 when she was found to have bilateral reflux probably vesicoureteral reflux with bilateral hydroureteronephrosis. [facility]had surgery in [facility] [place]. As per her history, currently she is not following any urologist but she has appointment with urologist in October. Admitted with fever, mild headache nausea but no vomiting. Physical exam General: Alert, Oriented x3, Cooperative. BMI 36.9 KUB squamous HEENT: Atraumatic, PERRLA, EOMI, Normocephalic. Oral: No Gingival or Mucosal Lesions/ Ulcerations Neck: Supple, No JVD, Negative Carotid Bruits Chest wall/Lungs: Air entry diminished in bilateral lung bases. No crepitation/rhonchi Cardiovascular: Regular rate and rhythm, Normal S1,S2, No M/G/R Abdomen: Bowel Sounds Present, Soft, Non Tender, mild abdominal distention : Neobladder reconstruction with membrane,metanephroma through with she empties bladder. No renal angle tenderness. Extremities: No edema, Capillary Refill Less than 3 Seconds Skin: No rashes, No breakdown Musculoskeletal: No Tenderness to Palpation of Joints or Extremities Neurological: Cranial nerves II-XII grossly intact, DTR 2+/4. No acute focal neurological deficit. 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 # Recurrent complicated UTI with acute pyelonephritis with secondary moderate right hydroureteronephrosis, mild left hydroureteronephrosis - Patient self caths through stoma, had not had problems until recently: Mild leukocytosis 11.4 K, temperature 93 Fahrenheit, heart rate 120s but improved to 90s with IV fluid. UA consistent with UTI. She was recently admitted to [place] 3 weeks ago for E. coli UTI and was treated with Rocephin and subsequently cefdinir. She has been off antibiotics for 2 weeks. - Urine culture obtained at outlying facility and is pending -continue Zosyn given patient recent hospitalized with IV antibiotics and unclear sensitivities. Discussed with urologist Dr. Clark and she thinks it is a complicated patient. Try to get medical records from [facility] regarding surgical details of bladder reconstruction. CT scan findingsdiscussed with the patient and her mother near the bedside and the urologist Continue IV fluid Most likely acute kidney injury due to bilateral hydroureteronephrosis/UTI: Patient creatinine was 1.32 on outside facility. With IV fluid creatinine came down to 1.05. #DVT ppx: SCDs Laboratory Results 10/02/24 05:08: WBC 10.8, RBC 3.69 L, Hgb 11.7 L, Hct 33.2 L, MCV 90.0, MCH 31.7, MCHC 35.2, RDW Std Deviation 38.1, RDW Coeff of Janelle 11.6, Plt Count 128 L,MPV 11.1, Immature Gran % (Auto) 0.600, Neut % (Auto) 76.6 H, Lymph % (Auto) 5.9L, Chester % (Auto) 16.6 H, Eos % (Auto) 0.0, Baso % (Auto) 0.3, Absolute Neuts (auto) 8.3 H, Absolute Lymphs (auto) 0.64 L, Nucleated RBC % 0, Differential Comment SCANNED, Platelet Estimate SLT DEC, RBC Morphology NORM C+C, Sodium 134,Potassium 3.4, Chloride 104, Carbon Dioxide 18.7 L, Anion Gap 11, BUN 8, Creatinine 1.05, Estim Creat Clear Calc 80.90, Est GFR (MDRD) Non-Af 72, BUN/Creatinine Ratio 7.5 L, Glucose 140 H, Calcium 7.9 Clinical Impression(s) from Imaging Studies Abdomen/Pelvis CT 10/02/24 05:55 IMPRESSION: Diffuse thickening of the bladder suggestive of cystitis. Moderate right hydroureteronephrosis, probably reflux. Mild left hydroureteronephrosis, probably reflux. Bilateral heterogeneous nephrogram of the kidneys, probably acute pyelonephritis. No obstructing stone or drainable abscess formation. Severe chronic atrophy of the left kidney. Mild bilateral basilar atelectatic pulmonary changes. Well-defined 5 mm simple cyst is noted in the segment 4B of the liver. No follow-up is needed. Mild amount of reactive free pelvic fluid. Laboratory Results 10/02/24 05:08: WBC 10.8, RBC 3.69 L, Hgb 11.7 L, Hct 33.2 L, MCV 90.0, MCH 31.7, MCHC 35.2, RDW Std Deviation 38.1, RDW Coeff of Janelle 11.6, Plt Count 128 L,MPV 11.1, Immature Gran % (Auto) 0.600, Neut % (Auto) 76.6 H, Lymph % (Auto) 5.9L, Chester % (Auto) 16.6 H, Eos % (Auto) 0.0, Baso % (Auto) 0.3, Absolute Neuts (auto) 8.3 H, Absolute Lymphs (auto) 0.64 L, Nucleated RBC % 0, Differential Comment SCANNED, Platelet Estimate SLT DEC, RBC Morphology NORM C+C, Sodium 134,Potassium 3.4, Chloride 104, Carbon Dioxide 18.7 L, Anion Gap 11, BUN 8, Creatinine 1.05, Estim Creat Clear Calc 80.90, Est GFR (MDRD) Non-Af 72, BUN/Creatinine Ratio 7.5 L, Glucose 140 H, Calcium 7.9 Charges/Coding Visit Charges Inpatient E&M: 45120 Subs Hosp L2 10/02/24 1255 <Electronically signed by Tom Cortez MD> Cosigner Signature (if applicable): CC: ~ Signed [facility] Work Phone: 1(826) 562-228008-18-2025 Progress note [facility] Medical Records Department [address] [place] [address] Progress Note - Hospitalist 10/02/24 1008 MR#: [id number] Acct: [id number] Name: LORA JONES Rep #:[id number] : 1990 34 From: Tom Mathews PCP: EDWIN Campoverde Status:ADM IN [id number] Reason for Visit Chief Complaint: Weakness, fever, concern for UTI Objective Data Objective Data Vital Signs: Vital Signs Temp Pulse Resp BP Pulse Ox O2 Del Method 98 F 97 18 101/69 98 Room Air 10/02/24 08:26 10/02/24 08:26 10/02/24 08:26 10/02/24 08:26 10/02/24 08:26 10/02/24 08:30 Oxygen Delivery Method Room Air Weight: 201 lb 8.04 oz Body Mass Index (BMI) 37.0 Intake & Output: Intake and Output for Last 24 Hours 09/30/24 10/01/24 10/02/24 23:59 23:59 23:59 Intake Total 1100 / 1100 Output Total 350 / 350 200 / 200 Balance -350 / -350 900 / 900 Lab / Micro Data 10/02/24 05:08 10/02/24 05:08 Labs: Laboratory Results - last 24 hr 10/02/24 05:08: WBC 10.8, RBC 3.69 L, Hgb 11.7 L, Hct 33.2 L, MCV 90.0, MCH 31.7, MCHC 35.2, RDW Std Deviation 38.1, RDW Coeff of Janelle 11.6, Plt Count 128 L,MPV 11.1, Immature Gran % (Auto) 0.600, Neut % (Auto) 76.6 H, Lymph % (Auto) 5.9L, Chester % (Auto) 16.6 H, Eos % (Auto) 0.0, Baso % (Auto) 0.3, Absolute Neuts (auto) 8.3 H, Absolute Lymphs (auto) 0.64 L, Nucleated RBC % 0, Differential Comment SCANNED, Platelet Estimate SLT DEC, RBC Morphology NORM C+C, Sodium 134,Potassium 3.4, Chloride 104, Carbon Dioxide 18.7 L, Anion Gap 11, BUN 8, Creatinine 1.05, Estim Creat Clear Calc 80.90, Est GFR (MDRD) Non-Af 72, BUN/Creatinine Ratio 7.5 L, Glucose 140 H, Calcium 7.9 Radiography Diagnostic Testing: Radiology Impression Abdomen/Pelvis CT 10/02/24 05:55 IMPRESSION: Diffuse thickening of the bladder suggestive of cystitis. Moderate right hydroureteronephrosis, probably reflux. Mild left hydroureteronephrosis, probably reflux. Bilateral heterogeneous nephrogram of the kidneys, probably acute pyelonephritis. No obstructing stone or drainable abscess formation. Severe chronic atrophy of the left kidney. Mild bilateral basilar atelectatic pulmonary changes. Well-defined 5 mm simple cyst is noted in the segment 4B of the liver. No follow-up is needed. Mild amount of reactive free pelvic fluid. Reading Location: [place] [address] Physical Exam Narrative Seen and examined. Discussed with the patient's mother in the room. She said patient had bladder reconstruction surgery at the age of 11 when she was found to have bilateral reflux probably vesicoureteral reflux with bilateral hydroureteronephrosis. Shehad surgery in [facility] [place]. As per her history, currently she is not following any urologist but she has appointment with urologist in October. Admitted with fever, mild headache nausea but no vomiting. Physical exam General: Alert, Oriented x3, Cooperative. BMI 36.9 KUB squamous HEENT: Atraumatic, PERRLA, EOMI, Normocephalic. Oral: No Gingival or Mucosal Lesions/ Ulcerations Neck: Supple, No JVD, Negative Carotid Bruits Chest wall/Lungs: Air entry diminished in bilateral lung bases. No crepitation/rhonchi Cardiovascular: Regular rate and rhythm, Normal S1,S2, No M/G/R Abdomen: Bowel Sounds Present, Soft, Non Tender, mild abdominal distention : Neobladder reconstruction with membrane,metanephroma through with she empties bladder. No renalangle tenderness. Extremities: No edema, Capillary Refill Less than 3 Seconds Skin: No rashes, No breakdown Musculoskeletal: No Tenderness to Palpation of Joints or Extremities Neurological: Cranial nerves II-XII grossly intact, DTR 2+/4. No acute focal neurological deficit. 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 # Recurrent complicated UTI with acute pyelonephritis with secondary moderate right hydroureteronephrosis, mild left hydroureteronephrosis - Patient self caths through stoma, had not had problems until recently: Mild leukocytosis 11.4 K, temperature 93 Fahrenheit, heart rate 120s but improved to 90s with IV fluid. UA consistent with UTI. She was recently admitted to [place] 3 weeks ago for E. coli UTI and was treated with Rocephin and subsequently cefdinir. She has been off antibiotics for 2 weeks. - Urine culture obtained at outlying facility and is pending -continue Zosyn given patient recent hospitalized with IV antibiotics and unclear sensitivities. Discussed with urologist Dr. Clark and she thinks it is a complicated patient. Try to get medical records from [facility] [place] regarding surgical details of bladder reconstruction. CT scan findingsdiscussed with the patient and her mother near the bedside and the urologist Continue IV fluid Most likely acute kidney injury due to bilateral hydroureteronephrosis/UTI: Patient creatinine was 1.32 on outside facility. With IV fluid creatinine came down to 1.05. #DVT ppx: SCDs Laboratory Results 10/02/24 05:08: WBC 10.8, RBC 3.69 L, Hgb 11.7 L, Hct 33.2 L, MCV 90.0, MCH 31.7, MCHC 35.2, RDW Std Deviation 38.1, RDW Coeff of Janelle 11.6, Plt Count 128 L,MPV 11.1, Immature Gran % (Auto) 0.600, Neut % (Auto) 76.6 H, Lymph % (Auto) 5.9L, Chester % (Auto) 16.6 H, Eos % (Auto) 0.0, Baso % (Auto) 0.3, Absolute Neuts (auto) 8.3 H, Absolute Lymphs (auto) 0.64 L, Nucleated RBC % 0, Differential Comment SCANNED, Platelet Estimate SLT DEC, RBC Morphology NORM C+C, Sodium 134,Potassium 3.4, Chloride 104, Carbon Dioxide 18.7 L, Anion Gap 11, BUN 8, Creatinine 1.05, Estim Creat Clear Calc 80.90, Est GFR (MDRD) Non-Af 72, BUN/Creatinine Ratio 7.5 L, Glucose 140 H, Calcium 7.9 Clinical Impression(s) from Imaging Studies Abdomen/Pelvis CT 10/02/24 05:55 IMPRESSION: Diffuse thickening of the bladder suggestive of cystitis. Moderate right hydroureteronephrosis, probably reflux. Mild left hydroureteronephrosis, probably reflux. Bilateral heterogeneous nephrogram of the kidneys, probably acute pyelonephritis. No obstructing stone or drainable abscess formation. Severe chronic atrophy of the left kidney. Mild bilateral basilar atelectatic pulmonary changes. Well-defined 5 mm simple cyst is noted in the segment 4B of the liver. No follow-up is needed. Mild amount of reactive free pelvic fluid. Laboratory Results 10/02/24 05:08: WBC 10.8, RBC 3.69 L, Hgb 11.7 L, Hct 33.2 L, MCV 90.0, MCH 31.7, MCHC 35.2, RDW Std Deviation 38.1, RDW Coeff of Janelle 11.6, Plt Count 128 L,MPV 11.1, Immature Gran % (Auto) 0.600, Neut % (Auto) 76.6 H, Lymph % (Auto) 5.9L, Chester % (Auto) 16.6 H, Eos % (Auto) 0.0, Baso % (Auto) 0.3, Absolute Neuts (auto) 8.3 H, Absolute Lymphs (auto) 0.64 L, Nucleated RBC % 0, Differential Comment SCANNED, Platelet Estimate SLT DEC, RBC Morphology NORM C+C, Sodium 134,Potassium 3.4, Chloride 104, Carbon Dioxide 18.7 L, Anion Gap 11, BUN 8, Creatinine 1.05, Estim Creat Clear Calc 80.90, Est GFR (MDRD) Non-Af 72, BUN/Creatinine Ratio 7.5 L, Glucose 140 H, Calcium 7.9 Charges/Coding Visit Charges Inpatient E&M: 63918 Subs Hosp L2 10/02/24 1255 Cosigner Signature (if applicable): CC: ~ Signed [facility]08-18-2025 Radiology Diagnostic study note [facility] Imaging Services [address] [place] [address] CT Abd/Pelvis W/WO Contrast MR#: [id number] Acct: [id number] Name: LORA JONES Rep #: [id number] : 1990 F 34 From: Danna Kurtz MD PCP: EDWIN Campoverde Status: ADM IN Study:CT Abd/Pelvis W/WO Contrast Date of Exa m: 10/02/24 Exam# [id number] Ordering Dr: Giovanni Crook MD PROCEDURE: CT ABD/PELVIS W/WO CONTRAST 10/02/2024 REASON FOR EXAM: RECURRENT COMPLICATED UTI TECHNIQUE: CT ABD/PELVIS W/WO CONTRAST Coronal and Sagittal reconstruction series were provided. CONTRAST: Isovue-350 VOLUME: 100 mL One or more dose reduction techniques were used (e.g., Automated exposure control, adjustment of the mA and/or kV according to patient size, use of iterative reconstruction technique. RADIATION DOSE SUMMARY: CTDlvol: 23.68 mGy DLP: 2164 mGycm COMPARISON: None. FINDINGS: Diffuse thickening of the bladder suggestive of cystitis. Moderate right hydroureteronephrosis, probably reflux. Mild left hydroureteronephrosis, probably reflux. Bilateral heterogeneous nephrogram of the kidneys, probably acute pyelonephritis. No obstructing stone or drainable abscess formation. Severe chronic atrophy of the left kidney. Mild bilateral basilar atelectatic pulmonary changes. Well-defined 5 mm simple cyst is noted in the segment 4B of the liver. No follow-up is needed. Mild amount of reactive free pelvic fluid. Absent appendix. Normal remaining liver. Normal gallbladder and extrahepatic biliary system. Normal spleen. Normal pancreas. Normal bilateral adrenal glands. Normal size of the right kidney. There is no right renal mass. There are no right renal calculi. There is no left renal mass. There are no left renal calculi. Normal visualized stomach. Normal small intestine. Normal colon. Normal abdominal aorta. Normal inferior vena cava. Normal retroperitoneum. There is no pelvic mass lesion or lymphadenopathy. Normal abdominal wall. Normal osseous structures. CT/CT Abd/Pelvis W/WO Contrast IMPRESSION: Diffuse thickening of the bladder suggestive of cystitis. Moderate right hydroureteronephrosis, probably reflux. Mild left hydroureteronephrosis, probably reflux. Bilateral heterogeneous nephrogram of the kidneys, probably acute pyelonephritis. No obstructing stone or drainable abscess formation. Severe chronic atrophy of the left kidney. Mild bilateral basilar atelectatic pulmonary changes. Well-defined 5 mm simple cyst is noted in the segment 4B of the liver. No follow-up is needed. Mild amount of reactive free pelvic fluid. Reading Location: [place] [address] CC: Dr. Maggie Crook MD; EDWIN Campoverde ~ Parimutuel Cashier: Signed [facility]08-17-2025 History and physical note Author Maggie Crook [facility] Note Date/Time October 01, 2024 9: 29pm [facility] Medical Records Department [address] [place] [address] H&P Exam - Hospitalist 10/01/249 MR#: [id number] Acct: [id number] Name: LORA JONES Rep #:[id number] : 1990 34 From: Maggie Crook MD PCP: EDWNI Campoverde Status:ADM IN Location: [facility] LU057-4 HPI - General General Date of Admission: 10/01/24 Date of Service: 10/01/24 Chief Complaint: Weakness, fever, concern for UTI HPI Narrative LORA JONES, is a 34-year-old female with history of bladder and ureter reconstruction in childhood with suprapubic catheter 11 years old now self caths through the stoma presented to [facility] 10/01/2024 with weakness, lower abdominal and back pain. She had a white count of 11.4 and a temp of 103, heartrate initially 120s but improved to 90s after fluids. Was found to have UA consistent with UTI so she was given Zosyn. Lactic acid was within normal limits at [facility] ([place] Of note she had recently been admitted to [place] 3 weeks ago for a E. coli UTI and was treated with Rocephin and subsequently cefdinir, she has been off of antibiotics for 2 weeks however this she developed the abdominal pain and back pain with intermittent fevers. Family preferred transfer to [place], patient accepted in transfer. Patient evaluated bedside when she arrived to the floor. She endorses she has little bit of a headache and has had this in the fevers off and on for the past couple of days, also reports she has had diarrhea since she was on antibiotics but said that this is improving and not worsening and was only offered information when specifically asked, does cath self through stoma routinely and has not changed anything or had any difficulty with this. Reports some suprapubic pain that she feels like goes to her back but not necessarily flank or side pain, otherwise just feels somewhat weak and fatigued [facility] Medical History UTI (urinary tract infection) Home Medications ?Medication ?Instructions ?Recorded ?Last Taken ?Type NK 10/01/24 Unknown History Allergy/AdvReac Type Severity Reaction Status Date / Time No Known Allergies Allergy Verified 10/01/24 20:11 Social History Smoking Status: Never smoker ROS ROS Narrative General: Has had some fevers and chills HENT: Intermittent headaches, denies stuffy nose, denies sore throat EYES: Denies changes in vision Resp: Denies cough, denies shortness of breath Cardiac: Denies chest pain GI: Poor p.o. intake, some lower abdominal pain symptoms to the back, sometimes diarrhea : Continues to self cath Extremity: Denies swelling MSK: Generalized weakness Neuro: Denies any numbness/tingling Heme: Denies any bleeding or bruising Skin: Denies rashes Psychiatric: No complaints voiced Vital Signs Vital Signs Vital Signs: 10/01/24 18:49 Temperature 98.5 F Temperature Source Oral Pulse Rate 99 Respiratory Rate 20 H Blood Pressure 122/76 H Blood Pressure Mean 91 Pulse Ox 107 Oxygen Delivery Method Room Air Physical Exam Narrative General: Alert, oriented, appears uncomfortable HEENT: Atraumatic, normocephalic Eyes: Anicteric, normal conjunctiva, extraocular movements grossly intact Neck: Supple Respiratory: Clear to auscultation bilaterally, normal respiratory effort Cardiovascular: Regular rate and rhythm GI: Soft, tender in lower to mid abdomen without any rebound, guarding, rigidity Extremities: No edema Musculoskeletal: Moving all extremities Neuro: No overt focal neurological deficits Skin: No rashes appreciated Psych: Cooperative Assessment & Plan Assessment/Plan (1) Complicated UTI (urinary tract infection): PLAN: Plan # Recurrent complicated UTI - Patient self caths through stoma, had not had problems until recently - [facility] and is [facility] - Will continue Zosyn given patient recent hospitalized with IV antibiotics and unclear sensitivities - IV fluids - Supportive care - Patient is to establish with urology on an outpatient basis in the next coupleof weeks - Can consider an inpatient urology consult this week if necessary however if patient improves significantly with antibiotics may just be able to follow on outpatient basis - Given this is patient's second UTI in 3 weeks is reasonable to get imaging, [facility], we have no baseline it is unclear if this is an ALIDA or just slightly elevated at baseline especially givenpatient's reports of poor p.o. intake, will hydrate patient with IVF overnight and plan on CT scan in the a.m. #DVT ppx: SCDs Maggie Crook MD Time spent in the patient's overall evaluation, decision-making process, review of diagnostic data, adjustment of management, discussion with other providers, nursing and ancillary staff involved in patient's care documentation,57 Minutes Charges/Coding Visit Charges Inpatient E&M: 96979 Init Hosp L2 10/01/242128 <Electronically signed by Maggie Crook MD> Cosigner Signature (if applicable): CC: Dr. Maggie Crook MD; EDWIN Campoverde~ Signed [facility] Work Phone: 1(673) 424-225708-17-2025 History and physical note [facility] Medical Records Department [address] [place] [address] H&P Exam - Hospitalist 10/01/241918 MR#: [id number] Acct: [id number] Name: LORA JONES Rep #:[id number] : 1990 34 From: Maggie Crook MD PCP: EDWIN Campoverde Status:ADM IN Location: MS3 NE215-0 HPI - General General Date of Admission: 10/01/24 Date of Service: 10/01/24 Chief Complaint: Weakness, fever, concern for UTI HPI Narrative LORA JONES, is a 34-year-old female with history of bladder and ureter reconstruction in childhood with suprapubic catheter 11 years old now self caths through the stoma presented to [facility] facility 10/01/2024 with weakness, lower abdominal and back pain. She had a white count of 11.4 and atemp of 103, heartrate initially 120s but improved to 90s after fluids. Was found to have UA consistent with UTI so she was given Zosyn. Lactic acid was within normal limits at [facility] facility ([place] Of note she had recently been admitted to [place] 3 weeks ago for a E. coli UTI and was treated with Rocephin and subsequently cefdinir, she has been off of antibiotics for 2 weeks however this she developed the abdominal pain and back pain with intermittent fevers. Family preferred transfer to [place], patient accepted in transfer. Patient evaluated bedside when she arrived to the floor. She endorses she has little bit of a headache and has had this in the fevers off and on for the past couple of days, also reports she has had diarrhea since she was on antibiotics but said that this is improving and not worsening and was only offered information when specifically asked, does cath self through stoma routinely and has not changed anything or had any difficulty with this. Reports some suprapubic pain that she feels like goes to her back but not necessarily flank or side pain, otherwise just feels somewhat weak and fatigued [facility] Medical History UTI (urinary tract infection) Home Medications ?Medication ?Instructions ?Recorded ?Last Taken ?Type NK 10/01/24 Unknown History Allergy/AdvReac Type Severity Reaction Status Date / Time No Known Allergies Allergy Verified 10/01/24 20:11 Social History Smoking Status: Never smoker ROS ROS Narrative General: Has had some fevers and chills HENT: Intermittent headaches, denies stuffy nose, denies sore throat EYES: Denies changes in vision Resp: Denies cough, denies shortness of breath Cardiac: Denies chest pain GI: Poor p.o. intake, some lower abdominal pain symptoms to the back, sometimes diarrhea : Continues to self cath Extremity: Denies swelling MSK: Generalized weakness Neuro: Denies any numbness/tingling Heme: Denies any bleeding or bruising Skin: Denies rashes Psychiatric: No complaints voiced Vital Signs Vital Signs Vital Signs: 10/01/24 18:49 Temperature 98.5 F Temperature Source Oral Pulse Rate 99 Respiratory Rate 20 H Blood Pressure 122/76 H Blood Pressure Mean 91 Pulse Ox 107 Oxygen Delivery Method Room Air Physical Exam Narrative General: Alert, oriented, appears uncomfortable HEENT: Atraumatic, normocephalic Eyes: Anicteric, normal conjunctiva, extraocular movements grossly intact Neck: Supple Respiratory: Clear to auscultation bilaterally, normal respiratory effort Cardiovascular: Regular rate and rhythm GI: Soft, tender in lower to mid abdomen without any rebound, guarding, rigidity Extremities: No edema Musculoskeletal: Moving all extremities Neuro: No overt focal neurological deficits Skin: No rashes appreciated Psych: Cooperative Assessment & Plan Assessment/Plan (1) Complicated UTI (urinary tract infection): PLAN: Plan # Recurrent complicated UTI - Patient self caths through stoma, had not had problems until recently - [facility] and is pending - Will continue Zosyn given patient recent hospitalized with IV antibiotics and unclear sensitivities - IV fluids - Supportive care - Patient is to establish with urology on an outpatient basis in the next coupleof weeks - Can consider an inpatient urology consult this week if necessary however if patient improves significantly with antibiotics may just be able to follow on outpatient basis - Given this is patient's second UTI in 3 weeks is reasonable to get imaging, patient's creatinine 1.32 on [facility] labs, we have no baseline it is unclear if this is an ALIDA or just slightlyelevated at baseline especially givenpatient's reports of poor p.o. intake, will hydrate patient with IVF overnight and plan on CT scan in the a.m. #DVT ppx: SCDs Maggie Crook MD Time spent in the patient's overall evaluation, decision-making process, review of diagnostic data,adjustment of management, discussion with other providers, nursing and ancillary staff involved in patient's care documentation,57 Minutes Charges/Coding Visit Charges Inpatient E&M: 30864 Init Hosp L2 10/01/242128 Cosigner Signature (if applicable): CC: Dr. Maggie Crook MD; EDWIN Campoverde~ Signed [facility]08-17-2025 Evaluation note* Diagnosis Onset Date Resolution Status Admit Date Complicated UTI (urinary tra ct infection) acute October 01 7:20pm Hydroureter, right acute October 01, 2024 7:20pm Left renal atrophy acute October 01, 2024 7:20pm Neurogenic bladder acute October 01, 2024 7:20pm Overflow incontinence acute Sep 7:20pm Pyelonephritis acute September 7:20pm Urinary retention acute October 01, 2024 7:20pm [facility] Work Phone: Discharge summary Author Mauricio Baughantonio [facility] Note Date/Time October 04, 2024 2: 11pm [facility] Medical Records Department [address] [place] [address] Discharge Summary 10/04/24 1407 MR#: [id number] Acct: [id number] Name: LORA JONES Rep #:[id number] : 1990 34 From: Mauricio Levine MD PCP: EDWIN Campoverde Status:ADM IN Location: [place] [id number] Providers Date of Admission: 10/01/24 Date of Discharge: 10/04/24 Primary Care Physician: EDWIN Campoverde Consultations 10/02/24 10:58 Consult: Urology Routine Consulting Provider: Lisa Clark Reason for Consult: complicated UTI, B/L hydroureteronephrosis EMERGENT Consult: No Notified: Yes Date Notified: 10/02/24 Time Notified: 10:59 Method of Notification: Verbal 10/02/24 11:30 Consult: Infectious Disease Routine Consulting Provider: Philipp Qureshi Reason for Consult: fever despite 2 doses Zosyn, complicated UTI, B/L hydro, Rt pyelo EMERGENT Consult: No Notified: Yes Date Notified: 10/02/24 Time Notified: 11:31 Method of Notification: Text Reason For Visit: COMPLICATED UTI Diagnosis Discharge Diagnosis (1) Complicated UTI (urinary tract infection): Status: Acute Code(s): N39.0 - Urinary tract infection, site not specified Plan 34-year-old female with 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 Recurrent complicated UTI secondary to self-catheterization with acute pyelonephritis ? Imaging studies on admission demonstrated Diffuse thickening of the bladder suggestive of cystitis. Moderate right hydroureteronephrosis, probably reflux. Mild left hydroureteronephrosis, probably reflux. Bilateral heterogeneous nephrogram of the kidneys, probably acute pyelonephritis. No obstructing stone or drainable abscess formation. Severe chronic atrophy of the left kidney. Patient was admitted to regular nursing floor started on Zosyn cultures sent result pending. Case was discussed with Dr. Clark with urology on admission ? 10/04/2024;Patient urine cultures exhibited no growth. This is not unexpected given her recent treatment at an outside hospital 2 weeks prior. Will defer discharge antibiotic therapy to ID. Patient antibiotic therapy has been de-escalated from Zosyn to ceftriaxone the day prior by ID ? Patient was discharged home on cefdinir per recommendations from Dr. Qureshiwith ID 2. Class II obesity with BMI of 37 ? Weight loss advised 3. Anemia ? Secondary to chronic disorder monitoring H&H and transfuse if patient becomes symptomatic or hemoglobin falls below 7 4. Mild thrombocytopenia ? Will monitor with daily CBC with differential 5. DVT prophylaxis ? Bilateral SCDs Time spent in the patient's overall evaluation,decision-making process, review of diagnostic data, adjustment of management, discussion with other providers, nursing nursing and ancillary staff involved in patient's care documentation, 38 Minutes Medications at Discharge Home Medications NK 10/01/24 cefdinir 300 mg capsule 300 mg PO BID #14 caps 10/04/24 Physical Exam Narrative GENERAL: cooperative HEENT: Atraumatic; normocephalic EYES; Anicteric, Normal Conjunctiva NECK; supple, normal thyroid, RESPIRATORY: Diminished to auscultation CARDIOVASCULAR: Regular S1 S2, GI: soft, normoactive bowel sounds, : Neobladder reconstruction with membrane,metanephroma through with she empties bladder. EXTREMITIES: No edema, no clubbing, MUSCULOSKELETAL: no muscle wasting NEURO: Awake; no lateralizing signs. SKIN: No Rash PSYCH; Flat affect Weight / BMI Weight Weight: 91.4 kg Body Mass Index (BMI) 37.0 ABG / Lab / Microbiology Data 10/04/24 06:08 10/04/24 06:08 Laboratory: Laboratory Results - last 24 hr 10/04/24 06:08: WBC 6.8, RBC 3.83 L, Hgb 12.1, Hct 34.6 L, MCV 90.3, MCH 31.6, MCHC 35.0, RDW Std Deviation 40.3, RDW Coeff of Janelle 12.1, Plt Count 157, MPV 10.8, Immature Gran % (Auto) 0.400, Neut % (Auto) 73.6 H, Lymph % (Auto) 16.2 L,Chester % (Auto) 8.2, Eos % (Auto) 1.3, Baso % (Auto) 0.3, Absolute Neuts (auto) 5.0, Absolute Lymphs (auto) 1.11, Nucleated RBC % 0, Sodium 140, Potassium 3.7, Chloride 107, Carbon Dioxide 20.6 L, Anion Gap 12, BUN 8, Creatinine 0.78, EstimCreat Clear Calc 108.90, Est GFR (MDRD) Non-Af 104, BUN/Creatinine Ratio 10.0, Glucose 94, Calcium 8.7 Microbiology: Microbiology 10/02/24 12:31 Urine Catheter - Catheter Urine Culture - Final Culture exhibits no growth. D/C Instructions Discharge Activity: Return to Normal Activity Call your doctor if you observe: Fever of 101 or Higher, Shortness of breath, Fainting spells and Chest pain DC O2, CPAP, BIPAP Needs Home O2 Discharge instructions: No Meaningful Use Info Meaningful Use Meaningful Use Diagnoses (Choose all that apply): None applicable Discharge Plan Admission Admit Date/Time: 10/01/24 19:20 Attending Provider: Mauricio Levine Primary Care Provider: Malaika Romero Consulting Providers: Maggie Crook; Lisa Clark; Philipp Qureshi; Tom Cortez Discharge Orders/Prescriptions Prescriptions: New cefdinir 300 mg capsule 300 mg PO BID Qty: 14 0RF No Action NK Referrals / Follow Up: RACHEL TELLEZ [Other] Lisa Clark MD [Med Staff - Active Staff] - Within 2 Weeks Malaika Romero PA [Primary Care Provider] - In 1 Week Disposition Disposition (needs filled in before D/C Order can be placed): Home, Self Care Charges/Coding Visit Charges Inpatient E&M: 59676 Disch Hosp >30min 10/04/24 1411 <Electronically signed by Mauricio Levine MD> Cosigner Signature (if applicable): CC: Dr. Mauricio Levine MD; EDWIN Campoverde~ Signed [facility] Work Phone: Evaluation note* Diagnosis Neurogenic bladder- Primary Neurogenic bladder, NOS Mitrofanoff appendicovesicostomy present (CMS/HCC) (HCC) Recurrent UTI Urinary tract infection, site not specified Solitary kidney, acquired Acquired absence of kidney Bilateral hydronephrosis Hydronephrosis Renal atrophy, left Unspecified renal sclerosis Stress incontinence in female Incompetence of bladder neck Dysuria documented in this encounter [facility] HealthEvaluation note* Diagnosis Renal atrophy, left- Primary Unspecified renal sclerosis Bilateral hydronephrosis Hydronephrosis Stress incontinence (female) (male) Neuromuscular dysfunction of bladder, unspecified Other specified disorders of bladder Appendico-vesicostomy status (HCC) Appendico-vesicostomy status Unspecified hydronephrosis documented in this encounter [facility] HealthEvaluation note* Diagnosis Renal atrophy, left- Primary Unspecified renal sclerosis Bilateral hydronephrosis Hydronephrosis Stress incontinence (female) (male) Neuromuscular dysfunction of bladder, unspecified Other specified disorders of bladder Appendico-vesicostomy status (HCC) Appendico-vesicostomy status Unspecified hydronephrosis documented in this encounter [facility] HealthEvaluation note* Diagnosis Recurrent UTI Urinary tract infection, site not specified Solitary kidney, acquired Acquired absence of kidney Neurogenic bladder Neurogenic bladder, NOS Bilateral hydronephrosis Hydronephrosis Renal atrophy, left Unspecified renal sclerosis Stress incontinence (female) (male) Neuromuscular dysfunction of bladder, unspecified Other specified disorders of bladder Appendico-vesicostomy status (HCC) Appendico-vesicostomy status Unspecified hydronephrosis documented in this encounter [facility] HealthProgress note Author Philipp Qureshi [facility] Note Date/Time October 04, 2024 3: 00pm [facility] Medical Records Department [address] [place] [address] Progress Note - Infect Disease 10/04/24 1456 MR#: [id number] Acct: [id number] Name: LORA JONES Rep #:[id number] : 1990 34 From: Philipp laguerre MD PCP: EDWIN Campoverde Status:ADM IN Location: MS3 [id number] Physical Exam Narrative Feeling better, no abd pain, no fever Const alert and no apparent distress General Appearance: cooperative Resp normal air movement and clear to auscultation bilaterally Cardio regular rate and regular rhythm GI soft to palpation, non-tender and non-distended Skin no rashes or lesions noted ID ID: Route of nutrition/ use of supplements: [] Nutritional Intake: [] IV Site: [] Kurtz Catheter: [] Assessment & Plan Assessment/Plan (1) Complicated UTI (urinary tract infection): PLAN: Complicated urologic history. CT done. Seen by urology. Ecoli uti at [place] end of August (R to amp, I to unasyn). Ucx here neg, but had been on abx prior to it being collected. On ceftriaxone. Ok for home with one week po cefdinir, d/w primary team. Will follow prn 10/04/24 1500 <Electronically signed by Philipp Qureshi MD> Cosigner Signature (if applicable): CC: ~ Signed [facility] Work Phone: reason for referral (narrative)No reason for referral information available[facility] Work Phone: Redgqx for visit Narrative* Imaging (Routine) - Closed Specialty Diagnoses / Procedures Referred By Contjoey t Referred To Contact Radiology Diagnoses Recurrent UTI Solitary kidney, acquired Neurogenic bladder Bilateral hydronephrosis Renal atrophy, left Procedures CT UROGRAM w wo iv contrast Rachel Tellez DO [address] [place] [address] Phone: tel: fax: Referral ID Status Reason Start Date Expiration Date Visits Re quested Visits Authorized [id number] Closed 10/11/2024 10/11/2025 1 1 [facility] Family History No Family History Records Found Breast Cancer Status:Active Comments:grandmo ther maternal Colon Cancer Status:Active Comments:Paterna l Grandmother. Breast Cancer Status:Active Comments:grandmo ther maternal Colon Cancer Status:Active Comments:Paterna l Grandmother. Breast Cancer Status:Active Comments:grandmo ther maternal Colon Cancer Status:Active Comments:Daniel ignacio Grandmother. Breast Cancer Status:Active Comments:grandmo ther maternal Colon Cancer Status:Active Comments:Paterna l Grandmother. Breast Cancer Status:Active Comments:grandmo ther maternal Colon Cancer Status:Active Comments:Paterna l Grandmother. Breast Cancer Status:Active Comments:grandmo ther maternal Colon Cancer Status:Active Comments:Angelna l Grandmother. Breast Cancer Status:Active Comments:grandmo ther maternal Colon Cancer Status:Active Comments:Paterna l Grandmother. Breast Cancer Status:Active Comments:grandmo ther maternal Colon Cancer Status:Active Comments:Paterna l Grandmother. Breast Cancer Status:Active Comments:grandmo ther maternal Colon Cancer Status:Active Comments:Paterna l Grandmother. Breast Cancer Status:Active Comments:grandmo ther maternal Colon Cancer Status:Active Comments:Paterna l Grandmother. Breast Cancer Status:Active Comments:grandmo ther maternal Colon Cancer Status:Active Comments:Angelna l Grandmother. Breast Cancer Status:Active Comments:grandmo ther maternal Colon Cancer Status:Active Comments:Angelna l Grandmother. Breast Cancer Status:Active Comments:grandmo ther maternal Colon Cancer Status:Active Comments:Angelna l Grandmother. Chief Complaint and Reason for Visit Chief Complaint Admit Date COMPLICATED UTI October 01, 2024 7: 20pm COMPLICATED UTI October 02, 2024 10 :08am COMPLICATED UTI October 02, 2024 4: 25pm COMPLICATED UTI October 03, 2024 8: 38am COMPLICATED UTI October 03, 2024 4: 15pm COMPLICATED UTI October 04, 2024 7: 42am Reason for Visit Admit Date Complicated UTI (urinary tract infection ) October 01, 2024 7:20pm Hydroureter, right October 01, 2024 7: 20pm Left renal atrophy October 01, 2024 7: 20pm Neurogenic bladder October 01, 2024 7: 20pm Overflow incontinence October 01, 2024 7:20pm Pyelonephritis October 01, 2024 7: 20pm Urinary retention October 01, 2024 7: 20pm Advance Directives No Advanced Directives Records Found Advance Directive Response Recorded Date/ Time Do you have a Healthcare Power of Operations Lieutenant? No October 01, 2024 6:35pm Summary Purpose Additional Source Comments Care Teams (unrecognized sec tion and content) Team Status: Active Member Role/Relationship Status Dates Pablito Cote Family Provider Active Malaika Romero PA, PA Primary Care Provider Active Team Status: Inactive Member Role/Relationship Status Dates Dr. Maggie Crook MD Admit Provider Active Star t: October 01, 2024 End: October 04, 2024 Dr. Maggie Crook MD Other Provider Active Star t: October 01, 2024 End: October 04, 2024 Malaika PINEDA, PA Primary Care Provider Active Start: October 01, 2024 End: October 04, 2024 Dr. Lisa Clark MD Other Provider Active Sta rt: October 01, 2024 End: October 04, 2024 Dr. Philipp Qureshi MD Other Provider Active Start: October 01, 2024 End: October 04, 2024 Dr. Mauricio Levine MD Attending Provider Active Start: October 01, 2024 End: October 04, 2024 Dr. Tom Cortez MD Other Provider Active Sta rt: October 01, 2024 End: October 04, 2024 Team Status: Active Member Role/Relationship Status Dates Dr. Maggie Crook MD Admit Provider Active Star t: October 02, 2024 Dr. Maggie Crook MD Other Provider Active Star t: October 02, 2024 Malaika PINEDA, PA Primary Care Provider Active Start: October 02, 2024 Dr. Tom Cortez MD Attending Provider Active Start: October 02, 2024 Dr. Tom Cortez MD Other Provider Active Sta rt: October 02, 2024 Dr. Lisa Clark MD Other Provider Active Sta rt: October 02, 2024 Dr. Philipp Qureshi MD Other Provider Active Start: October 02, 2024 Team Status: Active Member Role/Relationship Status Dates Dr. Maggie Crook MD Admit Provider Active Star t: October 02, 2024 Dr. Maggie Crook MD Other Provider Active Star t: October 02, 2024 Malaika PINEDA, PA Primary Care Provider Active Start: October 02, 2024 Dr. Lisa Clark MD Attending Provider Active Start: October 02, 2024 Dr. Lisa Clark MD Other Provider Active Sta rt: October 02, 2024 Dr. Philipp Qureshi MD Other Provider Active Start: October 02, 2024 Dr. Mauricio Levine MD Other Provider Active Star t: October 02, 2024 Dr. Tom Cortez MD Other Provider Active Sta rt: October 02, 2024 Team Status: Active Member Role/Relationship Status Dates Dr. Maggie Crook MD Admit Provider Active Star t: October 03, 2024 Dr. Maggie Crook MD Other Provider Active Star t: October 03, 2024 Malaika Romero PA, PA Primary Care Provider Active Start: October 03, 2024 Dr. Lisa Clark MD Other Provider Active Sta rt: October 03, 2024 Dr. Philipp Qureshi MD Other Provider Active Start: October 03, 2024 Dr. Mauricio Levine MD Attending Provider Active Start: October 03, 2024 Dr. Mauricio Levine MD Other Provider Active Star t: October 03, 2024 Dr. Tom Cortez MD Other Provider Active Sta rt: October 03, 2024 Team Status: Active Member Role/Relationship Status Dates Dr. Maggie Crook MD Admit Provider Active Star t: October 03, 2024 Dr. Maggie Crook MD Other Provider Active Star t: October 03, 2024 Malaika Romero PA, PA Primary Care Provider Active Start: October 03, 2024 Dr. Lisa Clark MD Attending Provider Active Start: October 03, 2024 Dr. Lisa Clark MD Other Provider Active Sta rt: October 03, 2024 Dr. Philipp Qureshi MD Other Provider Active Start: October 03, 2024 Dr. Mauricio Levine MD Other Provider Active Star t: October 03, 2024 Dr. Tom Cortez MD Other Provider Active Sta rt: October 03, 2024 Team Status: Active Member Role/Relationship Status Dates Dr. Maggie Crook MD Admit Provider Active Star t: October 04, 2024 Dr. Maggie Crook MD Other Provider Active Star t: October 04, 2024 Malaika Romero PA, PA Primary Care Provider Active Start: October 04, 2024 Dr. Lisa Clark MD Other Provider Active Sta rt: October 04, 2024 Dr. Philipp Qureshi MD Other Provider Active Start: October 04, 2024 Dr. Mauricio Levine MD Attending Provider Active Start: October 04, 2024 Dr. Mauricio Levine MD Other Provider Active Star t: October 04, 2024 Dr. Tom Cortez MD Other Provider Active Sta rt: October 04, 2024 Fishing Hand Relationship Specialty Start Date End Date Rachel Tellez DO [address] [place] [address] Surgeon Urology 10/05/24 Fishing Hand Relationship Specialty Start Date End Date Rachel Tellez DO [address] [place] [address] Surgeon Urology 10/05/24 Fishing Hand Relationship Specialty Start Date End Date Rachel Tellez DO [address] [place] [address] Surgeon Urology 10/05/24 Fishing Hand Relationship Specialty Start Date End Date Rachel Tellez DO [address] [place] [address] Surgeon Urology 10/05/24 Fishing Hand Relationship Specialty Start Date End Date Rachel Tellez DO [address] [place] [address] Surgeon Urology 10/05/24 Fishing Hand Relationship Specialty Start Date End Date Rachel Tellez DO [address] [place] [address] Surgeon Urology 10/05/24 Fishing Hand Relationship Specialty Start Date End Date Rachel Tellez DO [address] [place] [address] Surgeon Urology 10/05/24 INFORMATION SOURCE (unrecogn ized section and content) DATE CREATED AUTHOR 10/06/2024 [facility] DATE CREATED AUTHOR AUTHOR'S ORGANIZ ATION 10/10/2024 [facility] DATE CREATED AUTHOR AUTHOR'S ORGANIZ ATION 11/07/2024 [facility] DATE CREATED AUTHOR AUTHOR'S ORGANIZ ATION 11/08/2024 [facility] Reason for Visit (unrecogniz ed section and content) Reason Comments New Patient Recurrent UTIs. Pt i s on 1 week Cefdinir, finishing this evening. Presently denies any urinary issues. Specialty Diagnoses / Procedures Referred By Contac t Referred To Contact Urology Diagnoses Urinary tract infection, site not specified Procedures Eval & Tx Lisa Clark MD [address] [place] [address] Phone: tel: fax: [facility] [place] [address] [place] [address] Phone: tel: fax: Referral ID Status Reason Start Date Expiration Date Visits Re quested Visits Authorized [id number] Closed 10/05/2024 10/05/2025 1 1 Reason Onset Date Comments Surgery Scheduling 10/12/2024 Reason Onset Date Comments Appointment Request 10/18/2024 FOR RECORDS PERTAINING TO PATIENTS WHO ARE [...] BE BASED ON THE PRIMARY CLINICAL RECORDS. [employer] provides no warranty or guarantee of the accuracy or completeness of information in this document.
== END | disposition home or self-care (01) ==
PROVIDERS: PCP Physician Assistant
DX: R30.0 Dysuria (principal)
CPT/HCPCS: 87086